=== PATIENT | female | born 1965 | race Caucasian/White ===

== ENCOUNTER → 2023-01-01 11:10 | Outpatient (CLI) | payer MEDICAID, SELFPAY ==
[2023-01-01 14:12] LABS: Basophils # 0.1 K/mm3 (0-0.2); Basophils % 0.6 % (0.1-2.0); Eosinophils # 0.1 K/mm3 (0.0-0.4); Eosinophils % 1.7 % (0.1-12.0); Hematocrit 41.5 % (37.0-47.0); Hemoglobin 13.6 g/dL (12.2-16.2); Lymphocytes # 2.1 K/mm3 (0.7-4.5); Lymphocytes % 27.8 % (10-50); Mean Corpuscular HGB Conc 32.7 g/dL (31.8-35.4); Mean Corpuscular Hemoglobin 29.3 pg (27.0-31.2); Mean Corpuscular Volume 89.6 fl (81-99); Mean Platelet Volume 7.8 fl (7.4-10.4); Monocytes # 0.4 K/mm3 (0.1-1.0); Neutrophils # 4.7 K/mm3 (1.8-7.8); Neutrophils % 63.9 % (37.0-80.0); Platelet Count 297 K/mm3 (142-424); Red Blood Count 4.63 M/mm3 (4.20-5.40); Red Cell Distribution Width 12.8 % (11.5-17.5); White Blood Count 7.4 K/mm3 (4.8-10.8)
[2023-01-01 15:23] LABS: Alanine Aminotransferase 25 U/L (12-78); Albumin Level 4.1 g/dl (3.5-5.0); Albumin/Globulin Ratio 1.7 (1.1-1.8); Alkaline Phosphatase 89 U/L (38-126); Anion Gap 10.9 mEq/L (5-15); Aspartate Amino Transferase 24 U/L (14-36); Bilirubin,Total 0.3 mg/dl (0.2-1.3); Blood Urea Nitrogen 10 mg/dl (7-17); Calcium 8.3 mg/dl (8.4-10.2); Carbon Dioxide 24 mmol/L (22.0-30.0); Chloride 104 mmol/L (98-107); Chol/HDL Ratio 3.7 (1-3.5); Cholesterol 194 mg/dl (140-200); Estimated Glomerular Filt Rate 128 ml/min (>60); GFR (African American) 155 ML/MIN (>60); Globulin 2.4 g/dL (1.3-3.2); Glucose 179 mg/dl (74-100); HDL Cholesterol 53 mg/dl (40-60); Potassium 3.9 mmoL/L (3.5-5.1); Sodium 135 mmol/L (136-145); Total Protein,Serum 6.5 g/dl (6.3-8.2); Triglycerides 256 mg/dl (30-150); VLDL Cholesterol 51 mg/dL (0-40)
[2023-01-01 15:34] LABS: Direct LDL Cholesterol 116.02 mg/dL (100-129)
[2023-01-01 15:40] LABS: Free T4 (Free Thyroxine) 0.98 ng/dl (0.78-2.19)
[2023-01-01 15:41] LABS: Triiodothryronine (T3) Uptake 32 % (23.5-40.5)
[2023-01-01 15:44] LABS: Hemoglobin A1C 5.9 % (4.0-6.0)
[2023-01-01 15:55] LABS: Thyroid Stimulating Hormone < 0.02 uIU/mL (0.465-4.68)
[2023-01-03 08:52] LABS: Triiodothyronine (T3) Free 10.3 pg/mL (2.0-4.4)
== END ==
PROVIDERS: PCP Nurse Practitioner Family; Visit Provider Nurse Practitioner Family
DX: R53.83 Other fatigue (principal); E03.9 Hypothyroidism, unspecified; E55.9 Vitamin D deficiency, unspecified
CPT/HCPCS: 80053; 80061; 82306; 83036; 84439; 84443; 84479; 84481; 85025

== ENCOUNTER → 2023-03-13 23:45 | Outpatient (CLI) | payer MEDICAID, SELFPAY | PROVIDERS: PCP Nurse Practitioner Family; Visit Provider Nurse Practitioner Family | DX: M54.50 Low back pain, unspecified (principal); B96.1 Klebsiella pneumoniae [K. pneumoniae] as the cause of diseases classified elsewhere | CPT/HCPCS: 87086; 87088; 87186 ==

== ENCOUNTER → 2023-03-14 17:40 | Outpatient (CLI) | payer MEDICAID, SELFPAY ==
[2023-03-14 18:51] LABS: Adenovirus F 40/41, stool Not Detected (NotDetected); Astrovirus Not Detected (NotDetected); Campylobacter Not Detected (NotDetected); Cryptosporidium Not Detected (NotDetected); Cyclospora Cayetanesis Not Detected (NotDetected); Entamoeba histolytica Not Detected (NotDetected); Enteroaggregative E coli Not Detected (NotDetected); Enteropathogenic E coli Not Detected (NotDetected); Enterotoxigenic E coli Not Detected (NotDetected); Giardia lamblia Not Detected (NotDetected); Norovirus Not Detected (NotDetected); Plesimonas Shigalloides, PCR Not Detected (NotDetected); Rotavirus A Not Detected (NotDetected); Salmonella, PCR Not Detected (NotDetected); Sapovirus Not Detected (NotDetected); Shiga-like toxin E coli Not Detected (NotDetected); Shigella Enterovasive E coli Not Detected (NotDetected); Vibrio Cholerae Not Detected (NotDetected); Vibrio, PCR Not Detected (NotDetected); Yersinia Entercolitica, PCR Not Detected (NotDetected)
[2023-03-15 01:57] LABS: Clostridium Difficile A/B, PCR Detected (NotDetected)
== END ==
PROVIDERS: PCP Nurse Practitioner Family; Visit Provider Nurse Practitioner Family
DX: R19.7 Diarrhea, unspecified (principal); A04.72 Enterocolitis due to Clostridium difficile, not specified as recurrent
CPT/HCPCS: 87507

== ENCOUNTER 2023-03-20 21:55 | Emergency (ER) | payer MEDICARE, SELFPAY ==
[2023-03-20 21:57] VITALS: BP 110/73; PULSE 94; RESP 20; TEMP 36.7; O2SAT 98; BMI 27.3
[2023-03-20 22:18] VITALS: BP 110/73; PULSE 95; O2SAT 97
[2023-03-20 22:30] VITALS: BP 116/71; PULSE 91; O2SAT 96
[2023-03-20 22:36] LABS: Microscopic, Urine URINE MICROSCOPIC (MICROSCOPIC)
[2023-03-20 22:40] LABS: Basophils % 0.6 % (0.1-2.0); Eosinophils # 0.2 K/mm3 (0.0-0.4); Eosinophils % 2.9 % (0.1-12.0); Hematocrit 40.5 % (37.0-47.0); Hemoglobin 13.7 g/dL (12.2-16.2); Lymphocytes # 2.5 K/mm3 (0.7-4.5); Lymphocytes % 35.7 % (10-50); Mean Corpuscular HGB Conc 33.9 g/dL (31.8-35.4); Mean Corpuscular Hemoglobin 30.1 pg (27.0-31.2); Mean Corpuscular Volume 88.6 fl (81-99); Mean Platelet Volume 7.6 fl (7.4-10.4); Monocytes # 0.4 K/mm3 (0.1-1.0); Neutrophils # 3.9 K/mm3 (1.8-7.8); Neutrophils % 54.8 % (37.0-80.0); Platelet Count 262 K/mm3 (142-424); Red Blood Count 4.57 M/mm3 (4.20-5.40)
[2023-03-20 22:46] LABS: Alanine Aminotransferase 36 U/L (12-78); Albumin Level 3.9 g/dl (3.5-5.0); Albumin/Globulin Ratio 1.5 (1.1-1.8); Alkaline Phosphatase 84 U/L (38-126); Anion Gap 17.7 mEq/L (5-15); Aspartate Amino Transferase 38 U/L (14-36); Bilirubin,Total 0.2 mg/dl (0.2-1.3); Blood Urea Nitrogen 11 mg/dl (7-17); Calcium 8.6 mg/dl (8.4-10.2); Carbon Dioxide 28 mmol/L (22.0-30.0); Chloride 94 mmol/L (98-107); Creatinine Clearance Estimated 135 mL/min (50-200); Estimated Glomerular Filt Rate 103 ml/min (>60); GFR (African American) 125 ML/MIN (>60); Globulin 2.6 g/dL (1.3-3.2); Glucose 169 mg/dl (74-100); Potassium 3.7 mmoL/L (3.5-5.1); Sodium 136 mmol/L (136-145); Total Protein,Serum 6.5 g/dl (6.3-8.2)
[2023-03-20 22:47] LABS: Appearance,Urine CLEAR (Clear); Bilirubin,Urine Negative (Negative); Blood, Urine Negative (Negative); Color,Urine YELLOW (Yellow); Glucose,Urine (UA) Negative (Negative); Ketones,Urine Negative (Negative); Leukocyte Esterase,Urine Negative (Negative); Nitrate,Urine Negative (Negative); PH,Urine 5.5 (5.0-8.5); Protein,Urine Negative (Negative); Specific Gravity, Urine 1.015 (1.005-1.030); Urobilinogen,Urine 0.2 EU/dl (0.2)
[2023-03-20 22:51] LABS: C-Reactive Protein 1.1 mg/L (0-4)
[2023-03-20 23:05] LABS: Procalcitonin 0.045 ng/mL (0.0-2.0)
[2023-03-20 23:06] LABS: Squamous Epithelial Cell,Urine Occasional #/hpf (0-5)
--- NOTE | 2023-03-20 23:48 | HMH.EDGENADL ---
Discharge Plan Disposition Patient Disposition: Home, Self-Care Chief Complaint: PAIN Prescriptions Prescriptions: No Action vancomycin 125 mg capsule 125 mg PO QID 10 Days Qty: 40 0RF Rx Instructions: C-Diff venlafaxine [Effexor XR] 150 mg capsule,extended release 24hr 150 mg PO DAILY venlafaxine [Effexor XR] 37.5 mg capsule,extended release 24hr 37.5 mg PO DAILY lisinopril 20 mg tablet 20 mg PO DAILY Qty: 90 1RF levothyroxine 150 mcg capsule 150 mcg PO DAILY Qty: 90 1RF terbinafine HCl [Antifungal (terbinafine)] 1 % cream 1 applic topical BID Qty: 30 0RF nitrofurantoin monohyd/m-cryst [Macrobid] 100 mg capsule 100 mg PO Q12H 10 Days Qty: 20 0RF Rx Instructions: must administer with a meal/food dextroamphetamine-amphetamine [Adderall] 10 mg tablet 10 mg PO TID Qty: 42 0RF Rx Instructions: administer doses at least 4-6 hours apart Referrals Follow up/Referrals: Mark Trevizo APRN [Primary Care Provider] - See instructions Clinical Impressions Clinical Impression: C. difficile colitis Instructions Patient Instructions: DI for Clostridioides difficile Infection Discharge ED Provider: Maribel (ED)Flavio General Adult HPI General Chief complaint: PAIN Stated complaint: UTI Time Seen by Provider: 03/20/23 23:30 Mode of Arrival: Ambulatory Source of Information: Patient and Medical Record Limitations: No Limitations Description of Symptoms (Recalled from ER Triage Doc. by RN): Pt arrives with variety of complaints. States she was recently dx with CDiff, experiencing diarrhea, with lower back pain, denies any N/V or fever. States she has been on Augmentin for 2 days for her left bottom tooth infection. Also complains of swollen lymph nodes and overall body pain. History of Present Illness HPI narrative: treated for c diff and slowly improving and not feeling well Onset (ago): hour(s) Location: face Severity: moderate Associated symptoms: denies other symptoms Related Data Home Medications Medication Instructions Recorded Confirmed venlafaxine 150 mg 150 mg PO DAILY 01/01/23 03/13/23 capsule,extended release 24 hr (Effexor XR) venlafaxine 37.5 mg 37.5 mg PO DAILY 01/01/23 03/13/23 capsule,extended release 24 hr (Effexor XR) Previous Rx's Medication Instructions Recorded levothyroxine 150 mcg capsule 150 mcg PO DAILY #90 caps 01/03/23 lisinopril 20 mg tablet 20 mg PO DAILY #90 tabs 01/03/23 terbinafine HCl 1 % topical cream 1 applic topical BID #30 grams 01/03/23 (Antifungal (terbinafine)) vancomycin 125 mg capsule 125 mg PO QID 10 days #40 caps 03/15/23 dextroamphetamine-amphetamine 10 10 mg PO TID #42 tabs 03/19/23 mg tablet (Adderall) nitrofurantoin 100 mg PO Q12H 10 days #20 caps 03/19/23 monohydrate/macrocrystals 100 mg capsule (Macrobid) Allergies Allergy/AdvReac Type Severity Reaction Status Date / Time No Known Allergies Allergy Verified 03/13/23 16:05 [facility] Disclaimer: The information contained in this section may have been updated after the patient was seen, as this information can be updated by other users. Social History Smoking Status: Current every day smoker smoking status start date: 1/2 pack day years smoked: 30 quit status: considering quitting alcohol intake: never substance use type: denies use current occupational status: disabled Travel in the last 8 weeks: None household members: family housing: house marital status: single education level: college ROS Obtained: Yes All systems reviewed & no additional complaints except as documented Physical Exam General General appearance: alert Head Head exam: normocephalic Eye Eye exam: Present PERRL and EOMI; Absent scleral icterus ENT ENT exam: Present mucous membranes moist Neck Neck exam: Present trachea midline Respiratory Respirat
[2023-03-21] VITALS: BP 110/65; PULSE 86; O2SAT 93
[2023-03-21 00:23] LABS: Erythrocyte Sedimentation Rate 18 mm/hr (0-30)
[2023-03-21 01:10] VITALS: BP 113/64; PULSE 84; RESP 20; TEMP 36.6
== END 2023-03-21 01:17 | disposition home or self-care (01) ==
PROVIDERS: Emergency Provider Emergency Medicine; PCP Nurse Practitioner Family
DX: A04.72 Enterocolitis due to Clostridium difficile, not specified as recurrent (principal); F17.210 Nicotine dependence, cigarettes, uncomplicated
CPT/HCPCS: 80053; 81001; 84145; 85025; 85651; 86140; 87086; 96361; 96374; 96375; 99284; 99285; J0131; J2405

== ENCOUNTER 2023-05-15 11:40 | Day surgery (SDC) | payer MEDICARE, SELFPAY ==
[2023-05-15 11:24] VITALS: O2SAT 97
[2023-05-15 12:04] VITALS: BP 139/92; PULSE 95; RESP 18; TEMP 36.1; O2SAT 95; BMI 26.6
--- NOTE | 2023-05-15 12:04 | EXP.ANES.CKL ---
[facility] Disclaimer: The information contained in this section may have been updated after the patient was seen, as this information can be updated by other users. Medical History Depression Endometriosis Hypertension Hypothyroid Inguinal hernia Surgical History H/O inguinal hernia repair H/O laparoscopy History of section Family History Other Colon cancer Family history of cancer Family history of myocardial infarction Social History Smoking Status: Current every day smoker smoking status start date: 1 pack day years smoked: 30 quit status: considering quitting alcohol intake: never substance use type: denies use current occupational status: employed Travel in the last 8 weeks: None household members: family housing: house marital status: single education level: college [facility] Anesthesia Checklist Patient Identification Patient Identification: Arm Band and Verbal (Name & ) Structural Data Admitted From: Home Planned Operative Procedure/s: Colonoscopy Consent for Planned Operative Procedure(s) Verified: Yes NPO Status Verified Time NPO: 00:00 Airway Assessment C-Spine Mobility Assessed: Yes TMJ Mobility Assessed: Yes Dentition: Good Dentition Neurological Assessment Level of Consciousness: Awake Hx Seizures: No Numbness or tingling in extremities: No Anesthesia Plan Anesthesia Risk discussed: Yes Anesthesia Plan: Verified ASA Class: II Anesthesia Type: MAC
--- NOTE | 2023-05-15 12:40 | HMH.SCOPE ---
Procedure: Date: 05/15/23 Patient Date of :: 1965 Procedure Performed:: Colonoscopy & biopsies Indications:: Chronic diarrhea, screening exam Performing Provider:: Maycol Boggs MD Referring Provider:: Mark Trevizo APRN Sedation:: Propofol Procedure:: After placing the patient in the left lateral decubitus position, the colonoscopy was gently inserted into the rectum and under direct visualization advanced to the cecum which was identified by transillumination in the right lower quadrant, identification of the ileocecal valve, appendiceal orifice, and cecal strap. Color, texture, mucosa, and anatomy of the colon were carefully examined with the scope. Findings:: Anal canal: normal Rectum: normal Sigmoid colon: normal without polyps or inflammatory changes, biopsied Descending colon: normal without polyps or inflammatory changes, biopsied Splenic flexure: normal Transverse colon: normal without polyps or inflammatory changes, biopsied Hepatic flexure: normal Ascending colon: normal without polyps or inflammatory changes, biopsied Cecum: normal Terminal ileum: not visualized Impression: Overall normal colonoscopy exam. Random biopsies obtained Specimens:: Random colon Recommendations:: Follow up examination in about TEN years or so, sooner if clinically indicated. Complications:: None Estimated blood obtained (mL): 0 Colonoscopy Component Colonoscopy Component Was a colonoscopy performed during today's procedure?: Yes Recommended follow up colonoscopy of at least 10 years?: Yes
[2023-05-15 12:45] VITALS: BP 120/76; PULSE 97; RESP 18; TEMP 36.4; O2SAT 92
[2023-05-15 12:55] VITALS: BP 108/60; PULSE 94; RESP 18; O2SAT 93
[2023-05-15 13:05] VITALS: BP 118/85; PULSE 95; RESP 18; O2SAT 96
[2023-05-15 13:15] VITALS: BP 123/83; PULSE 91; RESP 18; O2SAT 95
== END 2023-05-15 13:25 | disposition home or self-care (01) ==
PROVIDERS: PCP Nurse Practitioner Family; Visit Provider Internal Medicine Gastroenterology
PROC: 0DJD8ZZ Inspection of Lower Intestinal Tract, Via Natural or Artificial Opening Endoscopic (ICD-10-PCS; CPT 45378; principal; 2023-05-15 12:30)
DX: K52.9 Noninfective gastroenteritis and colitis, unspecified (principal)
CPT/HCPCS: 45378; 88305; J2704

== ENCOUNTER 2023-06-29 13:37 | Emergency (ER) | payer MEDICARE, SELFPAY ==
[2023-06-29 14:07] VITALS: BP 133/74; PULSE 84; RESP 20; TEMP 36.8; O2SAT 97; BMI 26.3
[2023-06-29 14:31] VITALS: BP 129/83; PULSE 69; O2SAT 100
[2023-06-29 15:01] VITALS: BP 115/74; PULSE 70; O2SAT 98
[2023-06-29 15:35] VITALS: BP 115/74; PULSE 70; RESP 17; TEMP 36.6
--- NOTE | 2023-06-29 17:07 | HMH.EDGENADL ---
Discharge Plan Disposition Patient Disposition: Home, Self-Care Condition: Good Prescriptions Prescriptions: No Action lisinopril 20 mg tablet 20 mg PO DAILY Qty: 90 0RF venlafaxine [Effexor XR] 37.5 mg capsule,extended release 24hr 37.5 mg PO DAILY Qty: 90 0RF venlafaxine [Effexor XR] 150 mg capsule,extended release 24hr 150 mg PO DAILY Qty: 90 0RF liothyronine 50 mcg tablet See Rx Instructions .ROUTE .COMPLEX Qty: 90 0RF Dose Instruction: TAKE 1 TABLET BY MOUTH ONCE DAILY Rx Instructions: TAKE 1 TABLET BY MOUTH ONCE DAILY dextroamphetamine-amphetamine [Adderall] 10 mg tablet 10 mg PO TID Qty: 90 0RF Rx Instructions: administer doses at least 4-6 hours apart spironolactone 25 mg tablet 25 mg PO DAILY levothyroxine 150 mcg capsule 150 mcg PO DAILY Referrals Follow up/Referrals: Flavio López MD [Primary Care Provider] - See instructions Activity Restrictions/Add. Instructions Additional Instructions/Restrictions: You were evaluated in the emergency department today for eye pain. You have abrasions of both corneas. These are extremely painful and require antibiotic eyedrops since you have been wearing contacts. You have been provided gentamicin eye drops. Put 2 drops in both eyes 6 times daily for the next 5 days. Make an appointment with your eye doctor for reevaluation in 2 days. Do not wear contacts until you have been cleared by your eye doctor. Take Tylenol and ibuprofen if needed for pain. Return to the emergency department with any new or worsening symptoms. Clinical Impressions Clinical Impression: Abrasion, corneal Qualifiers: Encounter type: initial encounter Laterality: unspecified laterality Qualified Code(s): S05.00XA - Injury of conjunctiva and corneal abrasion without foreign body, unspecified eye, initial encounter Stand Alone Forms Stand Alone Forms: Work/School Release Discharge ED Provider: Lyndsay Jurado Adult [facility] General Chief complaint: Eye Problems Stated complaint: unable to see, blurry vision and pain Time Seen by Provider: 06/29/23 14:05 Mode of Arrival: Ambulatory Source of Information: Patient Limitations: No Limitations Description of Symptoms (Recalled from ER Triage Doc. by RN): pt to ed c/o bilateral eye pain. pt states she had several contacts removed from her eyes this morning at [facility]. pt states her eyes are now burning and she is sensitive to light. pt denies headache. History of Present Illness HPI narrative: This 58-year-old female presents to the emergency department with concerns of bilateral eye pain. Patient has a history of hypertension and hypothyroid. She states that she was putting contacts in this morning and thought they kept falling out because her vision was not getting any better so she kept putting an additional pairs of contacts. She then developed significant eye pain. She presented to [facility] where she states they took 3 contacts out of her right eye. She says she knows that she placed 3 contacts in her eyes. She states they did not remove any contacts from the left eye and did not visualize any in there. Patient states she was on her way home when the pain medication they had dripped in her eyes wore off and her pain got significantly worse. She presents to this emergency department because of concerns of eye pain. She states the right is worse than the left. She states her eyes hurt but vision is at baseline. Related Data Home Medications Medication Instructions Recorded Confirmed levothyroxine 150 mcg capsule 150 mcg PO DAILY Supplement 05/15/23 06/19/23 spironolactone 25 mg tablet 25 mg PO DAILY chf 05/15/23 06/19/23 Previous Rx's Medication Instructions Recorded lisinopril 20 mg tablet 20 mg PO DAILY High Blood Pressure 05/15/23 #90 tabs venlafaxine 37.5 mg 37.5 mg PO DAILY Depression #90 05/15/23 capsule,extended release 24 hr caps (Effexor XR)
== END 2023-06-29 15:36 | disposition home or self-care (01) ==
PROVIDERS: Emergency Provider Emergency Medicine; PCP Emergency Medicine
DX: S05.00XA Injury of conjunctiva and corneal abrasion without foreign body, unspecified eye, initial encounter (principal); H57.13 Ocular pain, bilateral; I10 Essential (primary) hypertension; E03.9 Hypothyroidism, unspecified; F32.A Depression, unspecified; N80.9 Endometriosis, unspecified
CPT/HCPCS: 99283

== ENCOUNTER → 2023-07-07 12:53 | Outpatient (CLI) | payer MEDICARE, SELFPAY | PROVIDERS: PCP Emergency Medicine; Visit Provider Emergency Medicine | DX: R69 Illness, unspecified (principal) | CPT/HCPCS: 87635 ==

== ENCOUNTER 2023-11-20 08:22 | Outpatient (CLI) | payer MEDICAID, SELFPAY ==
[2023-11-21 00:40] LABS: Benzodiazepines Screen,Urine Negative ng/ml (<200)
[2023-11-21 00:41] LABS: Amphetamine/Metha Screen,Urine Negative ng/ml (<1000); Barbiturates Screen,Urine Negative ng/ml (<200)
[2023-11-21 00:42] LABS: Cocaine Screen,Urine Negative ng/ml (<300); Methadone Screen,Urine Negative ng/ml (<300)
[2023-11-21 00:43] LABS: Cannabinoid Screen,Urine Positive ng/ml (<50)
[2023-11-21 00:44] LABS: Opiate Screen,Urine Negative ng/ml (<300)
[2023-11-21 00:45] LABS: Phencyclidine Screen,Urine Negative ng/ml (<25)
[2023-11-26 10:03] LABS: Amphetamines Negative (Cutoff=500)
== END 2023-11-20 23:59 ==
LOC: LAB.DROPOF 11-21 08:25
PROVIDERS: PCP Nurse Practitioner Family; Visit Provider Nurse Practitioner Family
DX: Z79.899 Other long term (current) drug therapy (principal); F90.9 Attention-deficit hyperactivity disorder, unspecified type
CPT/HCPCS: 80307; 80324

== ENCOUNTER 2024-03-04 15:37 | Outpatient (CLI) | payer MEDICAID, SELFPAY ==
[2024-03-04 19:13] LABS: Basophils % 0.4 % (0.1-2.0); Eosinophils # 0.2 K/mm3 (0.0-0.4); Eosinophils % 2.7 % (0.1-12.0); Hematocrit 42.5 % (37.0-47.0); Hemoglobin 14.2 g/dL (12.2-16.2); Lymphocytes # 1.8 K/mm3 (0.7-4.5); Lymphocytes % 30.5 % (10-50); Mean Corpuscular HGB Conc 33.5 g/dL (31.8-35.4); Mean Corpuscular Hemoglobin 30.1 pg (27.0-31.2); Mean Platelet Volume 8.3 fl (7.4-10.4); Monocytes # 0.3 K/mm3 (0.1-1.0); Neutrophils # 3.6 K/mm3 (1.8-7.8); Neutrophils % 61.4 % (37.0-80.0); Platelet Count 262 K/mm3 (142-424); Red Blood Count 4.73 M/mm3 (4.20-5.40); Red Cell Distribution Width 12.6 % (11.5-17.5); White Blood Count 5.9 K/mm3 (4.8-10.8)
[2024-03-04 19:38] LABS: Alanine Aminotransferase 23 U/L (12-78); Albumin Level 3.9 g/dl (3.5-5.0); Albumin/Globulin Ratio 1.5 (1.1-1.8); Alkaline Phosphatase 93 U/L (38-126); Anion Gap 12.2 mEq/L (5-15); Aspartate Amino Transferase 27 U/L (14-36); Bilirubin,Total 0.4 mg/dl (0.2-1.3); Blood Urea Nitrogen 12 mg/dl (7-17); Calcium 9.4 mg/dl (8.4-10.2); Carbon Dioxide 28 mmol/L (22.0-30.0); Chloride 102 mmol/L (98-107); Cholesterol 193 mg/dl (140-200); Estimated Glomerular Filt Rate 127 ml/min (>60); GFR (African American) 154 ML/MIN (>60); Globulin 2.6 g/dL (1.3-3.2); Glucose 76 mg/dl (74-100); HDL Cholesterol 48 mg/dl (40-60); Potassium 4.2 mmoL/L (3.5-5.1); Sodium 138 mmol/L (136-145); Total Protein,Serum 6.5 g/dl (6.3-8.2); Triglycerides 221 mg/dl (30-150); VLDL Cholesterol 44 mg/dL (0-40)
[2024-03-04 19:49] LABS: Direct LDL Cholesterol 120.81 mg/dL (100-129)
[2024-03-04 19:59] LABS: 25-OH Vitamin D, Total < 12.8 ng/mL (30-100)
[2024-03-04 20:11] LABS: Thyroid Stimulating Hormone < 0.02 uIU/mL (0.465-4.68)
[2024-03-04 20:31] LABS: Hemoglobin A1C 6.4 % (4.0-6.0)
== END 2024-03-04 23:59 | disposition home or self-care (01) ==
LOC: LAB.DROPOF 03-05 15:37
PROVIDERS: PCP Student in an Organized Health Care Education/Training Program; Visit Provider Student in an Organized Health Care Education/Training Program
DX: E03.9 Hypothyroidism, unspecified (principal); R10.9 Unspecified abdominal pain; Z13.220 Encounter for screening for lipoid disorders; Z13.21 Encounter for screening for nutritional disorder; Z13.1 Encounter for screening for diabetes mellitus; R73.09 Other abnormal glucose; E55.9 Vitamin D deficiency, unspecified; Z79.899 Other long term (current) drug therapy; B96.89 Other specified bacterial agents as the cause of diseases classified elsewhere
CPT/HCPCS: 80053; 80061; 82306; 83036; 84443; 85025; 87086; 87088; 87186

== ENCOUNTER 2024-07-12 19:52 | Outpatient (CLI) | payer MEDICAID, SELFPAY | END 2024-07-12 23:59 | disposition home or self-care (01) | LOC: LAB.DROPOF 19:54 | PROVIDERS: PCP Family Medicine; Visit Provider Family Medicine | DX: R35.0 Frequency of micturition (principal) | CPT/HCPCS: 87086 ==

== ENCOUNTER 2024-07-22 14:31 | Emergency (ER) | payer MEDICAID, SELFPAY ==
[2024-07-22 14:32] VITALS: BP 135/101; PULSE 90; RESP 18; TEMP 37.1; O2SAT 94; BMI 25.8
--- NOTE | 2024-07-22 14:50 | HMH.EDGENADL ---
Discharge Plan Disposition Patient Disposition: Home, Self-Care Condition: Good Prescriptions Prescriptions: No Action triamcinolone acetonide 0.5 % cream 1 applic topical BID Qty: 15 0RF spironolactone 25 mg tablet 25 mg PO DAILY Qty: 90 2RF nicotine [Nicoderm CQ] 21 mg/24 hr patch 24 hour 1 patch transdermal DAILY Qty: 28 0RF hydroxyzine pamoate 100 mg capsule 100 mg PO HS Qty: 30 0RF dextroamphetamine-amphetamine [Adderall] 10 mg tablet 10 mg PO BID Qty: 60 0RF Rx Instructions: administer doses at least 4-6 hours apart terbinafine HCl 1 % cream 1 applic topical BID Qty: 30 2RF cholecalciferol (vitamin D3) 1,250 mcg (50,000 unit) capsule 1,250 mcg PO WEEKLY Qty: 14 0RF fluticasone propionate [Flonase Allergy Relief] 50 mcg/actuation spray,suspension 1 spray intranasal DAILY Qty: 16 2RF Rx Instructions: administer into each nostril lisinopril 20 mg tablet 20 mg PO DAILY Qty: 90 0RF montelukast [Singulair] 10 mg tablet 10 mg PO DAILY Qty: 90 0RF venlafaxine [Effexor XR] 37.5 mg capsule,extended release 24hr 37.5 mg PO DAILY Qty: 90 0RF venlafaxine 150 mg capsule,extended release 24hr 150 mg PO DAILY Qty: 90 0RF levothyroxine 125 mcg tablet 125 mcg PO DAILY Qty: 90 0RF albuterol sulfate [Ventolin HFA] 90 mcg/actuation HFA aerosol inhaler 2 puff inhalation Q4-6H PRN (Reason: shortness of breath or wheezing) Qty: 8.5 2RF liothyronine 50 mcg tablet See Rx Instructions .ROUTE .COMPLEX Qty: 90 0RF Dose Instruction: TAKE 1 TABLET BY MOUTH ONCE DAILY Rx Instructions: TAKE 1 TABLET BY MOUTH ONCE DAILY Referrals Follow up/Referrals: Mark Trevizo APRN [Primary Care Provider] - See instructions Activity Restrictions/Add. Instructions Additional Instructions/Restrictions: Follow-up with primary care provider, recheck your laboratory studies, please have rheumatologic/autoimmune panels performed by your primary care provider, take your regular arthritis strength medication as prescribed. Return to the emergency department for any worsening new signs or symptoms. Clinical Impressions Clinical Impression: Foot pain, bilateral, Bilateral hand pain Instructions Patient Instructions: DI for Osteoarthritis Print Language Print Language: Haitian Discharge ED Provider: Chapo Braun General Adult HPI <AIDEE Maki - Last Filed: 07/22/24 15:13> General Chief complaint: PAIN Stated complaint: arthritis swollen hands Time Seen by Provider: 07/22/24 14:47 Mode of Arrival: Ambulatory Source of Information: Patient Limitations: No Limitations Description of Symptoms (Recalled from ER Triage Doc. by RN): arthritis pain x3 days History of Present Illness HPI narrative: 59-year-old female presents to the emergency department with bilateral hands and feet pain and swelling, patient states that she has osteoarthritis, usually takes ibuprofen and glucosamine/chondroitin but is out of this supplement. Patient states, I typically get a steroid shot and it helps . Patient states she has regular PCP follow-ups. Patient denies any other acute symptomatology such as recent illness fever chills chest pain shortness of breath, nausea, vomiting, Moreno pain, urinary type symptomatology, vaginal type symptomatology, denies any hematemesis, hematemesis, hematochezia or melena, mitts to occasional numbness and tingling of bilateral feet and hands, asked about history of diabetes, she denies, upon chart review last A1c was and March 2024, she denies any upper or lower extremity weakness denies urinary bladder or bowel dysfunction, denies any saddle anesthesia. Patient's past medical history consistent with hypertension, osteoarthritis, hypothyroidism, ADHD, triage vitals grossly unremarkable, she is a current everyday smoker, denies alcohol or drug use. Onset (ago): day(s) Related Data Previous Rx's ?Medication ?Instructions ?Recorded spironolactone 25 mg tablet 25 mg PO DAILY chf #90 tabs 08/20/23 triamcinolone acetonide 0.5 % 1 applic topical BID #15 grams 08/20/23 topical cream terbinafine HCl 1 % topical cream 1 applic topical BID fungus #30 01/02/24 grams cholecalciferol (vitamin D3) 1,250 1,250 mcg PO WEEKLY #14 caps 03/04/24 mcg (50,000 unit) capsule fluticasone propionate 50 1 spray intranasal DAILY #16 grams 04/01/24 mcg/actuation nasal spray,suspension (Flonase Allergy Relief) lisinopril 20 mg tablet 20 mg PO DAILY High Blood Pressure 05/12/24 #90 tabs montelukast 10 mg tablet 10 mg PO DAILY #90 tabs 05/12/24 (Singulair) nicotine 21 mg/24 hr daily 1 patch transdermal DAILY #28 ea 05/20/24 transdermal patch (Nicoderm CQ) dextroamphetamine-amphetamine 10 10 mg PO BID ADHD #60 tabs 07/12/24 mg tablet (Adderall) hydroxyzine pamoate 100 mg capsule 100 mg PO HS #30 caps 07/12/24 albuterol sulfate 90 mcg/actuation 2 puff inhalation Q4-6H PRN 07/13/24 aerosol inhaler (Ventolin HFA) shortness of breath or wheezing #8.5 grams levothyroxine 125 mcg tablet 125 mcg PO DAILY #90 tabs 07/13/24 venlafaxine 150 mg 150 mg PO DAILY Depression #90 caps 07/13/24 capsule,extended release 24 hr venlafaxine 37.5 mg 37.5 mg PO DAILY Depression #90 07/13/24 capsule,extended release 24 hr caps (Effexor XR) liothyronine 50 mcg tablet See Rx Instructions .Route 07/19/24 .COMPLEX #90 tabs Allergies Allergy/AdvReac Type Severity Reaction Status Date / Time No Known Allergies Allergy Verified 07/12/24 15:47 [facility] <AIDEE Maki - Last Filed: 07/22/24 15:13> [facility] Disclaimer: The information contained in this section may have been updated after the patient was seen, as this information can be updated by other users. Medical History Endometriosis Inguinal hernia Depression Hypertension Hypothyroid Surgical History H/O laparoscopy H/O inguinal hernia repair History of section Family History Other Colon cancer Family history of cancer Family history of myocardial infarction Social History Smoking Status: Current every day smoker smoking status start date: 1/2 pack day years smoked: 30 quit status: considering quitting alcohol intake: never substance use type: denies use current occupational status: employed Travel in the last 8 weeks: None household members: family housing: house marital status: single education level: college <AIDEE Maki - Last Filed: 07/22/24 15:13> ROS Obtained: Yes All systems reviewed & no additional complaints except as documented Physical Exam <AIDEE Maki - Last Filed: 07/22/24 15:13> General General appearance: alert and in no apparent distress Head Head exam: atraumatic and normocephalic Eye Eye exam: Present PERRL and EOMI ENT ENT exam: Present mucous membranes moist Neck Neck exam: Present normal inspection Chest Chest inspection: Present normal inspection and symmetric chest wall rise Respiratory Respiratory exam: Present normal lung sounds bilaterally; Absent respiratory distress Cardiovascular Cardiovascular exam: Present regular rate and normal rhythm Abdominal Exam Abdominal exam: Present soft; Absent tenderness Extremities Exam Extremities exam: Present normal inspection, full ROM, normal capillary refill, joint swelling and other (There is no swan-neck or boutonniere deformity, no tophi); Absent tenderness or edema Neurological Exam Neurological exam: Present alert and oriented X3 Psychiatric Psychiatric exam: Present normal affect Skin Skin exam: Present warm and dry Medical Decision Making <AIDEE Maki - Last Filed: 07/22/24 15:13> Medical Records Screening: Per USPSTF and CDC recommendations, given the prevalence of disease in our region, it is our hospital?s policy to screen for HIV and viral Hepatitis for all patients aged 18 and over and those with ongoing risk factors. Mauro Inquiry Pt receiving controlled substance: No Vital Signs: 07/22/24 14:32 07/22/24 15:20 Temperature 98.8 F 98.0 F Temperature Source Oral Oral Pulse Rate 79 Pulse Rate [Right] 90 Respiratory Rate 18 20 Blood Pressure 120/82 Blood Pressure [Right Arm] 135/101 H Blood Pressure Mean [Right Arm] 112 02 Sat by Pulse Oximetry 94 L Oxygen Delivery Method Room Air Orders (Tests/Meds): ED MEDICATIONS Discontinued Medications Generic Name Dose Route Start Last Admin Trade Name Freq PRN Reason Stop Dose Admin Dexamethasone Sodium Phosphate 10 mg 07/22/24 15:02 07/22/24 15:11 Dexamethasone 4mg/Ml 1ml Vial IM 07/22/24 15:03 10 mg ONCE ONE Administration Ketorolac Tromethamine 15 mg 07/22/24 14:59 07/22/24 15:11 Ketorolac 30mg/Ml Vial IM 07/22/24 15:00 15 mg ONCE ONE Administration Medical Decision Narrative: 59-year-old female presents to the emergency department with bilateral hands and feet pain differential diagnose include but not limited to diabetic polyneuropathy, osteoarthritis, rheumatoid arthritis, gout. I discussed patient case with the attending physician Dr. Braun Will give patient 15 mg IM Toradol and 10 mg IM dexamethasone for pain. Had a long discussion with the patient at the bedside, recommend follow-up with primary care provider for rheumatologic studies, to rule out rheumatoid arthritis any other rheumatological/autoimmune disease, patient has no acute findings on physical exam, neurovascular intact, range of motion intact, moves extremity to command, no numbness or tingling currently, no erythema, no evidence of any cellulitis, tophi or gout. Most likely in line with her current osteoarthritis. I reviewed via chart review, patient last A1c was 6, other laboratory studies unremarkable last reviewed in March 2024, recommend follow-up PCP as directed, strict ED return precaution given to the patient at bedside, patient agreement with current treatment plan/discharge plan. <Chapo Braun MD - Last Filed: 07/22/24 16:12> Vital Signs: 07/22/24 14:32 07/22/24 15:20 Temperature 98.8 F 98.0 F Temperature Source Oral Oral Pulse Rate 79 Pulse Rate [Right] 90 Respiratory Rate 18 20 Blood Pressure 120/82 Blood Pressure [Right Arm] 135/101 H Blood Pressure Mean [Right Arm] 112 02 Sat by Pulse Oximetry 94 L Oxygen Delivery Method Room Air Orders (Tests/Meds): ED MEDICATIONS Discontinued Medications Generic Name Dose Route Start Last Admin Trade Name Freq PRN Reason Stop Dose Admin Dexamethasone Sodium Phosphate 10 mg 07/22/24 15:02 07/22/24 15:11 Dexamethasone 4mg/Ml 1ml Vial IM 07/22/24 15:03 10 mg ONCE ONE Administration Ketorolac Tromethamine 15 mg 07/22/24 14:59 07/22/24 15:11 Ketorolac 30mg/Ml Vial IM 07/22/24 15:00 15 mg ONCE ONE Administration Medical Decision Narrative: 59-year-old female presents to the emergency department with bilateral hands and feet pain differential diagnose include but not limited to diabetic polyneuropathy, osteoarthritis, rheumatoid arthritis, gout. I discussed patient case with the attending physician Dr. Braun Will give patient 15 mg IM Toradol and 10 mg IM dexamethasone for pain. Had a long discussion with the patient at the bedside, recommend follow-up with primary care provider for rheumatologic studies, to rule out rheumatoid arthritis any other rheumatological/autoimmune disease, patient has no acute findings on physical exam, neurovascular intact, range of motion intact, moves extremity to command, no numbness or tingling currently, no erythema, no evidence of any cellulitis, tophi or gout. Most likely in line with her current osteoarthritis. I reviewed via chart review, patient last A1c was 6, other laboratory studies unremarkable last reviewed in March 2024, recommend follow-up PCP as directed, strict ED return precaution given to the patient at bedside, patient agreement with current treatment plan/discharge plan. I was consulted by the KATIE, and we discussed the complexity of the problems being addressed. I approved the treatment and management plan for this patient's care in the Emergency Department, thus performing a substantive portion of the medical decision making. Chapo Braun MD Critical Care <AIDEE Maki - Last Filed: 07/22/24 15:13> Critical Care Time Critical Care Time: No
[2024-07-22] MEDS: KETOROLAC 30MG/ML VIAL 15 MG IM (15:11)
[2024-07-22] MEDS: DEXAMETHASONE 4MG/ML 1ML VIAL 10 MG IM (15:11)
[2024-07-22 15:20] VITALS: BP 120/82; PULSE 79; RESP 20; TEMP 36.7; O2SAT 94
== END 2024-07-22 15:22 | disposition home or self-care (01) ==
PROVIDERS: Emergency Provider Emergency Medicine; PCP Nurse Practitioner Family
DX: M79.642 Pain in left hand (principal); M79.641 Pain in right hand; M79.672 Pain in left foot; M79.671 Pain in right foot; M19.042 Primary osteoarthritis, left hand; M19.041 Primary osteoarthritis, right hand; M19.072 Primary osteoarthritis, left ankle and foot; M19.071 Primary osteoarthritis, right ankle and foot
CPT/HCPCS: 96372; 99283; J1100; J1885

== ENCOUNTER 2024-07-26 15:41 | Outpatient (CLI) | payer MEDICAID, SELFPAY ==
[2024-07-26 15:28] LABS: Microscopic, Urine URINE MICROSCOPIC (MICROSCOPIC)
[2024-07-26 17:03] LABS: Appearance,Urine CLEAR (Clear); Bilirubin,Urine Negative (Negative); Blood, Urine Negative (Negative); Color,Urine YELLOW (Yellow); Glucose,Urine (UA) Negative (Negative); Ketones,Urine Negative (Negative); Leukocyte Esterase,Urine TRACE (Negative); Nitrate,Urine Negative (Negative); Protein,Urine Negative (Negative); Urobilinogen,Urine 0.2 EU/dl (0.2)
== END 2024-07-26 23:59 | disposition home or self-care (01) ==
LOC: LAB.DROPOF 15:41
PROVIDERS: PCP Urology; Visit Provider Urology
DX: N39.3 Stress incontinence (female) (male) (principal)
CPT/HCPCS: 81001

== ENCOUNTER 2024-07-29 14:27 | Outpatient (CLI) | payer MEDICAID, SELFPAY ==
[2024-07-29 15:29] LABS: Blood Urea Nitrogen 15 mg/dl (7-17); Estimated Glomerular Filt Rate 86 ml/min (>60); GFR (African American) 104 ML/MIN (>60)
== END 2024-07-29 23:59 | disposition home or self-care (01) ==
LOC: RAD 14:28
PROVIDERS: PCP Nurse Practitioner Family; Visit Provider Family Medicine
DX: Z01.812 Encounter for preprocedural laboratory examination (principal)
CPT/HCPCS: 36415; 82565; 84520

== ENCOUNTER 2024-08-15 20:09 | Emergency (ER) | payer MEDICAID, SELFPAY ==
[2024-08-15 20:45] VITALS: BP 116/81; PULSE 92; RESP 20; TEMP 36.7; O2SAT 97; BMI 26.6
[2024-08-15 21:03] LABS: Microscopic, Urine URINE MICROSCOPIC (MICROSCOPIC)
--- NOTE | 2024-08-15 21:19 | ED_ITS ---
Discharge Plan Disposition Patient Disposition: Home, Self-Care Prescriptions Prescriptions: New cefdinir 300 mg capsule 300 mg PO BID 7 Days Qty: 14 0RF phenazopyridine 100 mg tablet 100 mg PO Q8H Qty: 14 0RF No Action triamcinolone acetonide 0.5 % cream 1 applic topical BID Qty: 15 0RF spironolactone 25 mg tablet 25 mg PO DAILY Qty: 90 2RF nicotine [Nicoderm CQ] 21 mg/24 hr patch 24 hour 1 patch transdermal DAILY Qty: 28 0RF ammonium lactate 12 % cream 1 applic topical BID Qty: 385 1RF hydroxyzine pamoate 100 mg capsule 100 mg PO HS Qty: 30 0RF oxybutynin chloride 10 mg tablet extended release 24hr 10 mg PO DAILY Qty: 90 3RF estradiol 0.01 % (0.1 mg/gram) cream See Rx Instructions vaginal .COMPLEX Qty: 42.5 2RF Rx Instructions: Using finger technique daily for two weeks and then twice weekly vaginally; terbinafine HCl 1 % cream 1 applic topical BID Qty: 30 2RF cholecalciferol (vitamin D3) 1,250 mcg (50,000 unit) capsule 1,250 mcg PO WEEKLY Qty: 14 0RF fluticasone propionate [Flonase Allergy Relief] 50 mcg/actuation spray,suspension 1 spray intranasal DAILY Qty: 16 2RF Rx Instructions: administer into each nostril montelukast [Singulair] 10 mg tablet 10 mg PO DAILY Qty: 90 0RF venlafaxine [Effexor XR] 37.5 mg capsule,extended release 24hr 37.5 mg PO DAILY Qty: 90 0RF venlafaxine 150 mg capsule,extended release 24hr 150 mg PO DAILY Qty: 90 0RF levothyroxine 125 mcg tablet 125 mcg PO DAILY Qty: 90 0RF albuterol sulfate [Ventolin HFA] 90 mcg/actuation HFA aerosol inhaler 2 puff inhalation Q4-6H PRN (Reason: shortness of breath or wheezing) Qty: 8.5 2RF liothyronine 50 mcg tablet See Rx Instructions .ROUTE .COMPLEX Qty: 90 0RF Dose Instruction: TAKE 1 TABLET BY MOUTH ONCE DAILY Rx Instructions: TAKE 1 TABLET BY MOUTH ONCE DAILY triazolam [Halcion] 0.25 mg tablet 0.25 mg PO ONCE Qty: 1 0RF lisinopril 20 mg tablet 20 mg PO DAILY Qty: 90 0RF dextroamphetamine-amphetamine [Adderall] 10 mg tablet 10 mg PO BID Qty: 60 0RF Rx Instructions: administer doses at least 4-6 hours apart Referrals Follow up/Referrals: Mark Trevizo APRN [Primary Care Provider] - See instructions Activity Restrictions/Add. Instructions Additional Instructions/Restrictions: Call your family doctor to establish care for this visit to the emergency department and schedule follow-up within 48 hours to ensure improvement. If you have any worsening of your condition or any other concerning signs or symptoms, return to the emergency department or your primary care doctor for further evaluation. Clinical Impressions Clinical Impression: Pyelonephritis Print Language Print Language: Moroccan Discharge ED Provider: Chapo Braun General Adult HPI General Chief complaint: PAIN Stated complaint: possible bladder infection,pain,burning Time Seen by Provider: 08/15/24 20:44 Mode of Arrival: Ambulatory Source of Information: Patient Limitations: No Limitations Description of Symptoms (Recalled from ER Triage Doc. by RN): Pt ambulatory to ED with cc of left groin pain. Pt states she had burning when she urinates. Pt states she took Azo today and the burning has since resolved. Pt states her left groin pain is a throbbing pain that started today. History of Present Illness HPI narrative: Please note that above description of symptoms, in this electronic medical record under categorization of recalled from ER triage doctor by RN are reflective of an initial nursing assessment, however, is not reflective of my full history and physical exam that was personally taken and clarified. Consequentially, this preceding description of symptoms, which may include the patient's categorized chief complaint in the EMR, do not reflect my personal clinical impression, and the ultimate description of history of present illness and patient stated complaints should be deferred to this section of the note. Unless stated otherwise or congruent with this section of the note, additional signs, symptoms, or incongruence should be interpreted as inaccurate with my clinical impression. Related Data Previous Rx's ?Medication ?Instructions ?Recorded spironolactone 25 mg tablet 25 mg PO DAILY chf #90 tabs 08/20/23 triamcinolone acetonide 0.5 % 1 applic topical BID #15 grams 08/20/23 topical cream terbinafine HCl 1 % topical cream 1 applic topical BID fungus #30 01/02/24 grams cholecalciferol (vitamin D3) 1,250 1,250 mcg PO WEEKLY #14 caps 03/04/24 mcg (50,000 unit) capsule fluticasone propionate 50 1 spray intranasal DAILY #16 grams 04/01/24 mcg/actuation nasal spray,suspension (Flonase Allergy Relief) montelukast 10 mg tablet 10 mg PO DAILY #90 tabs 05/12/24 (Singulair) nicotine 21 mg/24 hr daily 1 patch transdermal DAILY #28 ea 05/20/24 transdermal patch (Nicoderm CQ) hydroxyzine pamoate 100 mg capsule 100 mg PO HS #30 caps 07/12/24 albuterol sulfate 90 mcg/actuation 2 puff inhalation Q4-6H PRN 07/13/24 aerosol inhaler (Ventolin HFA) shortness of breath or wheezing #8.5 grams levothyroxine 125 mcg tablet 125 mcg PO DAILY #90 tabs 07/13/24 venlafaxine 150 mg 150 mg PO DAILY Depression #90 caps 07/13/24 capsule,extended release 24 hr venlafaxine 37.5 mg 37.5 mg PO DAILY Depression #90 07/13/24 capsule,extended release 24 hr caps (Effexor XR) liothyronine 50 mcg tablet See Rx Instructions .Route 07/19/24 .COMPLEX #90 tabs ammonium lactate 12 % topical cream 1 applic topical BID dry skin, 07/26/24 callus care #385 grams estradiol 0.01% (0.1 mg/gram) See Rx Instructions vaginal 07/26/24 vaginal cream .COMPLEX #42.5 grams oxybutynin chloride 10 mg 10 mg PO DAILY #90 tabs 07/26/24 tablet,extended release 24 hr triazolam 0.25 mg tablet (Halcion) 0.25 mg PO ONCE anxiety #1 tab 08/05/24 lisinopril 20 mg tablet 20 mg PO DAILY High Blood Pressure 08/06/24 #90 tabs dextroamphetamine-amphetamine 10 10 mg PO BID ADHD #60 tabs 08/11/24 mg tablet (Adderall) cefdinir 300 mg capsule 300 mg PO BID 7 days #14 caps 08/15/24 phenazopyridine 100 mg tablet 100 mg PO Q8H 6 doses #14 tabs 08/15/24 Allergies Allergy/AdvReac Type Severity Reaction Status Date / Time No Known Allergies Allergy Verified 07/26/24 16:30 [facility] Disclaimer: The information contained in this section may have been updated after the patient was seen, as this information can be updated by other users. Medical History Endometriosis Inguinal hernia Depression Hypertension Hypothyroid Surgical History H/O laparoscopy H/O inguinal hernia repair History of section Family History Other Colon cancer Family history of cancer Family history of myocardial infarction Social History Smoking Status: Current every day smoker smoking status start date: 12 pack day years smoked: 30 quit status: considering quitting alcohol intake: never substance use type: denies use current occupational status: employed Travel in the last 8 weeks: None household members: family housing: house marital status: single education level: college Other Medical History Have you received the Pneumonia Vaccine: No ROS Obtained: Yes All systems reviewed & no additional complaints except as documented Physical Exam General General appearance: alert Head Head exam: atraumatic and normocephalic Eye Eye exam: Present normal appearance, PERRL and EOMI Neck Neck exam: Present normal inspection, full ROM and trachea midline Respiratory Respiratory exam: Absent respiratory distress, wheezes, stridor, accessory muscle use or prolonged expiratory phase Cardiovascular Cardiovascular exam: Present other (Pulses equal symmetric in upper and lower extremities) Abdominal Exam Abdominal exam: Present soft; Absent distention, tenderness or pulsatile mass Extremities Exam Extremities exam: Absent edema Neurological Exam Neurological exam: Present alert, oriented X3 and CN II-XII intact; Absent motor sensory deficit Skin Skin exam: Present warm and dry; Absent diaphoresis or erythema Medical Decision Making Medical Records Medical records reviewed: Yes I reviewed the patient's medical records. Screening: Per USPSTF and CDC recommendations, given the prevalence of disease in our region, it is our hospital?s policy to screen for HIV and viral Hepatitis for all patients aged 18 and over and those with ongoing risk factors. Mauro Inquiry Pt receiving controlled substance: No Mauro was queried for this patient: No Vital Signs: 08/15/24 20:45 Temperature 98.1 F Temperature Source Oral Pulse Rate [Left Radial] 92 H Respiratory Rate 20 Blood Pressure [Right Arm] 116/81 Blood Pressure Mean [Right Arm] 92 Blood Pressure Source [Right Arm] Automatic Cuff Blood Pressure Position [Right Arm] Sitting 02 Sat by Pulse Oximetry 97 Oxygen Delivery Method Room Air Lab Data Lab Results 08/15/24 20:59: Urine Color Red, Urine Appearance Cloudy, Urine pH 5.0, Ur Specific [place] >= 1.030, Urine Protein 2+ A, Urine Glucose (UA) Trace, Urine Ketones Trace, Urine Blood Negative, Urine Nitrate Positive, Urine Bilirubin 2+ A, Urine Urobilinogen 4.0, Ur Leukocyte Esterase 1+ A, Urine RBC None, Urine WBC 50-100, Ur Squamous Epith Cells 3-5, Urine Bacteria 3+ Orders (Tests/Meds): ED MEDICATIONS Discontinued Medications Generic Name Dose Route Start Last Admin Trade Name Freq PRN Reason Stop Dose Admin Cefdinir 300 mg 08/15/24 21:20 08/15/24 21:26 Cefdinir 300mg Capsule PO 08/15/24 21:21 300 mg ONCE ONE Administration Phenazopyridine HCl 100 mg 08/15/24 21:20 08/15/24 21:26 Phenazopyridine 200mg Tablet PO 08/15/24 21:21 100 mg ONCE ONE Administration ORDERS Category Date Time Status Trichomonas Vaginalis, ANNE Stat Lab 08/15/24 20:59 Received UA [Urinalysis and Microscopic] Stat Lab 08/15/24 20:59 Completed Urine Culture Stat Micro 08/15/24 20:59 Received Medical Decision Narrative: This is a 59-year-old female with history of atrophic vaginitis, numerous UTIs, currently on vaginal estrogen cream presenting with urinary burning. Patient states that since yesterday, 08/14, she has had burning when she urinates. She also has frequency, urgency of urine. No hematuria reported. States that today, pain started going up into her bilateral flanks. No vomiting, fevers, chills, etc. Took an Azo, this seemed to help significantly. History obtained with patient. On arrival, very well-appearing. Abdomen is soft, nontender, non distended. No flank tenderness. Differential includes cystitis, pyelonephritis, nephrolithiasis, atrophic vaginitis, HSV, STD, among others. Given numerous UTIs in the past, initial dose of cefdinir and phenazopyridine administered. Initial evaluation conservative with urinalysis. This demonstrated concern for pyelonephritis with protein, nitrates, leukocyte Estrace and bacteria. Because patient at baseline without signs or symptoms of clinical decompensation, deemed appropriate for discharge. Results were relayed to patient who voiced understanding and were agreeable to outpatient management and follow up. I discussed my clinical impression with patient and answered all questions. At this time, the evidence for any other entities in the differential is insufficient to warrant any further testing or ED observation. This was explained as well. Advisory was given that persistent or worsening symptoms require further evaluation. I confirmed the understanding of this discussion.. Overhead [employer]er disclaimer Much of this encounter note is an electronic cut off operator scorer spoken language to printed text. Electronic cut off operator scorer of the spoken language may permit errors. Although I have reviewed the note, some errors may still exist. Critical Care Critical Care Time Critical Care Time: No
[2024-08-15 21:26] LABS: Blood, Urine Negative (Negative); Glucose,Urine (UA) TRACE (Negative); Ketones,Urine TRACE (Negative); Leukocyte Esterase,Urine 1+ (Negative); Nitrate,Urine POSITIVE (Negative); Protein,Urine 2+ (Negative); Specific Gravity, Urine >= 1.030 (1.005-1.030)
[2024-08-15] MEDS: CEFDINIR 300MG CAPSULE 300 MG PO (21:26)
[2024-08-15] MEDS: PHENAZOPYRIDINE 200MG TABLET 100 MG PO (21:26)
[2024-08-15 21:33] LABS: Appearance,Urine Cloudy (Clear); Bilirubin,Urine 2+ (Negative); Color,Urine Red (Yellow)
[2024-08-15 21:45] LABS: Bacteria,Urine 3+ /lpf; WBC,Urine 50-100 #/hpf (0-3)
[2024-08-15 22:23] VITALS: BP 111/61; PULSE 94; RESP 20; TEMP 36.7; O2SAT 97
[2024-08-18 05:10] LABS: Neisseria gonorrhoeae, NAA Negative (Negative); Trichomonas Vaginalis, NAA Negative (Negative)
== END 2024-08-15 22:27 | disposition home or self-care (01) ==
PROVIDERS: Emergency Provider Emergency Medicine; PCP Nurse Practitioner Family
DX: N12 Tubulo-interstitial nephritis, not specified as acute or chronic (principal); R10.2 Pelvic and perineal pain; R30.0 Dysuria
CPT/HCPCS: 81001; 87086; 87088; 87186; 87491; 87591; 87661; 99283

== ENCOUNTER 2024-08-17 14:14 | Outpatient (CLI) | payer MEDICAID, SELFPAY ==
--- NOTE | 2024-08-17 14:22 | MR_ITS ---
PROCEDURE INFORMATION: Exam: MR Lumbar Spine Without and With Contrast Exam date and time: 08/17/2024 3:05 PM Age: 59 years old Clinical indication: Lumbago; Additional info: Loss of bowel and bladder TECHNIQUE: Imaging protocol: Magnetic resonance imaging of the lumbar spine without and with contrast. Contrast material: ISOVUE; Contrast volume: 16 ml; Contrast route: IV; COMPARISON: No relevant prior studies available. FINDINGS: Bones/joints: The vertebral body heights are maintained. There is grade 1 anterolisthesis of L4 on L5 and L5 on S1. There is [id number] multilevel degenerative disc disease. Spinal cord: Visualized cord, conus medullaris and cauda equina are unremarkable without compression. L1-L2: No significant disc bulge or herniation. No severe spinal canal stenosis. No significant neural foraminal narrowing. L2-L3: No significant disc bulge or herniation. No severe spinal canal stenosis. No significant neural foraminal narrowing. L3-L4: There is mild diffuse disc bulging without significant spinal canal or neural foraminal stenosis. L4-L5: There is mild spinal canal stenosis secondary to anterolisthesis of L4 on L5, mild diffuse disc bulging, and facet hypertrophy. The neural foramina appear patent. L5-S1: There is mild spinal canal stenosis secondary to anterolisthesis of L5 on S1 and mild diffuse disc bulging. There is moderate right and mild left neural foraminal stenosis secondary to anterolisthesis of L5 on S1 and foraminal disc bulging. Soft tissues: Unremarkable. IMPRESSION: 1. Grade 1 anterolisthesis of L4 on L5 and L5 on S1. 2. Mild spinal canal stenosis at L4-L5 and L5-S1. Please see above for specific findings at each level.
--- NOTE | 2024-08-17 14:22 | MR_ITS ---
PROCEDURE INFORMATION: Exam: MR Cervical Spine Without and With Contrast Exam date and time: 08/17/2024 3:05 PM Age: 59 years old Clinical indication: Neck pain; Additional info: Numbness in hands TECHNIQUE: Imaging protocol: Magnetic resonance imaging of the cervical spine without and with contrast. Contrast material: ISOVUE; Contrast volume: 16 ml; Contrast route: IV; COMPARISON: No relevant prior studies available. FINDINGS: Bones/joints: The vertebral body heights are maintained. There is slight grade 1 retrolisthesis of C3 on C4. Otherwise alignment is maintained. There is [id number] multilevel degenerative disc disease. There is straightening of cervical lordosis. Spinal cord: Normal signal. No cord compression. C2-C3: No significant disc bulge or herniation. No severe spinal canal stenosis. No significant neural foraminal narrowing. C3-C4: There is mild spinal canal stenosis secondary to diffuse disc osteophyte bulging which effaces the anterior thecal sac. The left neural foramen appears patent. There is severe right neural foraminal stenosis secondary to a large foraminal disc osteophyte complex and facet hypertrophy. C4-C5: There is minimal central disc bulging without significant spinal canal or neural foraminal stenosis. C5-C6: There is moderate diffuse disc osteophyte bulging which effaces the anterior thecal sac. There is mild spinal canal stenosis. There is severe right and moderate left neural foraminal stenosis secondary to foraminal disc osteophyte ridging and facet hypertrophy. C6-C7: There is a small to moderate-sized left paracentral disc protrusion which effaces the anterior thecal sac. Otherwise there is no significant spinal canal or neural foraminal stenosis. C7-T1: No significant disc bulge or herniation. No severe spinal canal stenosis. No significant neural foraminal narrowing. Soft tissues: Unremarkable. Vasculature: Expected flow voids in the vertebral arteries. IMPRESSION: Degenerative changes as described. Please see above for specific findings at each level.
[2024-08-17] MEDS: GADOTERIDOL INJ 20ML SYRINGE 16 ML IV (16:34)
[2024-08-17] MEDS: SODIUM CHLORIDE 0.9% 10ML SYR (RAD ONLY) 10 ML IV (16:34)
== END 2024-08-17 23:59 | disposition home or self-care (01) ==
LOC: RAD 14:15
PROVIDERS: PCP Nurse Practitioner Family; Visit Provider Family Medicine
DX: M48.061 Spinal stenosis, lumbar region without neurogenic claudication (principal); M54.9 Dorsalgia, unspecified; R20.0 Anesthesia of skin
CPT/HCPCS: 72156; 72158; A9576

== ENCOUNTER 2024-09-20 10:36 | Outpatient (POV) | payer MEDICAID, SELFPAY ==
[2024-09-20 15:11] VITALS: BP 138/95; PULSE 111; RESP 18; O2SAT 98; BMI 26.6
--- NOTE | 2024-09-20 16:01 | EXP.PAIN.OV ---
HPI Data of Consult Patient: new to practice Consult date: 09/20/24 Requesting Physician: Shannan Hare APRN Primary Care Provider: Mark Trevizo APRN Consult Narrative Reason for consult: Neck pain, low back pain, bilateral hip pain, upper thigh pain History of present illness: Ms. Lemon is a 59 year old female who presents today as a new patient. She is a referral from Mark Bonds's office. Today she rates her pain a 7 out of 10. Patient states that she has had longstanding low back pain over the last 2 years related to 2 falls that she had at that timeframe. Patient however states that she is progressively worsening pain in and around her left hip primarily and going into her upper left leg. She states the last month has been severe and that she has tried conservative therapy such as oral medications, heat and ice, topicals with no additional improvement. Patient describes it as a constant aching sensation that does go down into her buttocks area. She states the pain is worse with increased activity or such activities such as long car rides, going up stairs or prolonged standing, sitting or walking. Patient does also have chronic neck pain however she states the low back is much worse. Patient states that nothing seems to make it better. Patient has seen a chiropractor for 2 years with no additional help and even feels like it may have worsened the overall pain. She states that she has not had any prior surgery and denies any heart or kidney issues. Patient has been tried on diclofenac however states that it caused stomach issues. Patient does also state that she has had in the past a collapsed urethra and bladder problems and so she has issues both her back and other areas. Her Mauro has been reviewed and is appropriate. CC: Shannan Hare APRN [facility] Disclaimer: The information contained in this section may have been updated after the patient was seen, as this information can be updated by other users. Medical History Endometriosis Inguinal hernia Depression Hypertension Hypothyroid Surgical History H/O laparoscopy H/O inguinal hernia repair History of section Family History Other Colon cancer Family history of cancer Family history of myocardial infarction Social History Smoking Status: Current every day smoker smoking status start date: 1/2 pack day years smoked: 30 quit status: considering quitting alcohol intake: never substance use type: denies use current occupational status: other Travel in the last 8 weeks: None household members: family housing: house marital status: single education level: college Review of Systems Review of Systems Review of systems:: pertinent systems reviewed and negative unless documented below Review of systems (narrative): Review of Systems: General: No recent weight changes, no fever, no sleep disturbances Respiratory: No cough, no shortness of air, no recurring pulmonary infections Cardiovascular/peripheral vascular: No chest pain, no palpitations, no edema, no shortness of breath Gastrointestinal: No new onset incontinence, normal bowel movements reported Genitourinary: No new onset incontinence Musculoskeletal: Low back pain, bilateral hip pain, neck pain, upper thigh pain Psychiatric: [Normal mood/affect] Neurological: [Denies weakness in extremities], [denies balance issues] Meds Home Medications and Allergies Home Medications ?Medication ?Instructions ?Recorded ?Confirmed ?Type spironolactone 25 mg tablet 25 mg PO DAILY chf #90 tabs 08/20/23 09/20/24 Rx triamcinolone acetonide 0.5 % 1 applic topical BID #15 grams 08/20/23 09/20/24 Rx topical cream terbinafine HCl 1 % topical cream 1 applic topical BID fungus #30 01/02/24 09/20/24 Rx grams cholecalciferol (vitamin D3) 1,250 1,250 mcg PO WEEKLY #14 caps 03/04/24 09/20/24 Rx mcg (50,000 unit) capsule fluticasone propionate 50 1 spray intranasal DAILY #16 grams 04/01/24 09/20/24 Rx mcg/actuation nasal spray,suspension (Flonase Allergy Relief) nicotine 21 mg/24 hr daily 1 patch transdermal DAILY #28 ea 05/20/24 09/20/24 Rx transdermal patch (Nicoderm CQ) hydroxyzine pamoate 100 mg capsule 100 mg PO HS #30 caps 07/12/24 09/20/24 Rx levothyroxine 125 mcg tablet 125 mcg PO DAILY #90 tabs 07/13/24 09/20/24 Rx venlafaxine 150 mg 150 mg PO DAILY Depression #90 caps 07/13/24 09/20/24 Rx capsule,extended release 24 hr venlafaxine 37.5 mg 37.5 mg PO DAILY Depression #90 07/13/24 09/20/24 Rx capsule,extended release 24 hr caps (Effexor XR) liothyronine 50 mcg tablet See Rx Instructions .Route 07/19/24 09/20/24 Rx .COMPLEX #90 tabs ammonium lactate 12 % topical cream 1 applic topical BID dry skin, 07/26/24 09/20/24 Rx callus care #385 grams lisinopril 20 mg tablet 20 mg PO DAILY High Blood Pressure 08/06/24 09/20/24 Rx #90 tabs cefdinir 300 mg capsule 300 mg PO BID 7 days #14 caps 08/15/24 09/20/24 Rx phenazopyridine 100 mg tablet 100 mg PO Q8H 6 doses #14 tabs 08/15/24 09/20/24 Rx naproxen 500 mg tablet 500 mg PO BID #30 tabs 09/07/24 09/20/24 Rx prednisone 20 mg tablet 20 mg PO BID 5 days #10 tabs 09/07/24 09/20/24 Rx estradiol 0.01% (0.1 mg/gram) See Rx Instructions vaginal 09/13/24 09/20/24 Rx vaginal cream .COMPLEX #42.5 grams oxybutynin chloride 10 mg 10 mg PO DAILY #90 tabs 09/13/24 09/20/24 Rx tablet,extended release 24 hr albuterol sulfate 90 mcg/actuation 2 puff inhalation Q4-6H PRN 09/14/24 09/20/24 Rx aerosol inhaler (Ventolin HFA) shortness of breath or wheezing #8.5 grams dextroamphetamine-amphetamine 10 10 mg PO BID ADHD #60 tabs 09/14/24 09/20/24 Rx mg tablet (Adderall) montelukast 10 mg tablet 10 mg PO DAILY #90 tabs 09/14/24 09/20/24 Rx (Singulair) New Prescriptions to Start Prescriptions: Allergies Allergy/AdvReac Type Severity Reaction Status Date / Time No Known Allergies Allergy Verified 09/13/24 10:59 Objective Vital signs: Pulse Resp BP Pulse Ox O2 Del Method 111 H 18 138/95 H 98 Room Air 09/20/24 15:11 09/20/24 15:11 09/20/24 15:11 09/20/24 15:11 09/20/24 15:11 Narrative: Physical Exam: General: Alert and oriented x3, no acute distress, pleasant and cooperative Lungs: Respirations even and unlabored, symmetrical chest expansion Eyes: PERRL Musculoskeletal: Flexion and extension of lumbar [spine] somewhat guarded secondary to pain, [antalgic gait noted] point tenderness along bilateral SIs with positive bilateral Denise's, Mulu's, Gaenslen's, compression and distraction exam Neurological: Speech clear, no gross sensory deficit Additional findings Additional findings: FINDINGS: Bones/joints: The vertebral body heights are maintained. There is grade 1 anterolisthesis of L4 on L5 and L5 on S1. There is [id number] multilevel degenerative disc disease. Spinal cord: Visualized cord, conus medullaris and cauda equina are unremarkable without compression. L1-L2: No significant disc bulge or herniation. No severe spinal canal stenosis. No significant neural foraminal narrowing. L2-L3: No significant disc bulge or herniation. No severe spinal canal stenosis. No significant neural foraminal narrowing. L3-L4: There is mild diffuse disc bulging without significant spinal canal or neural foraminal stenosis. L4-L5: There is mild spinal canal stenosis secondary to anterolisthesis of L4 on L5, mild diffuse disc bulging, and facet hypertrophy. The neural foramina appear patent. L5-S1: There is mild spinal canal stenosis secondary to anterolisthesis of L5 on S1 and mild diffuse disc bulging. There is moderate right and mild left neural foraminal stenosis secondary to anterolisthesis of L5 on S1 and foraminal disc bulging. Soft tissues: Unremarkable. IMPRESSION: 1. Grade 1 anterolisthesis of L4 on L5 and L5 on S1. 2. Mild spinal canal stenosis at L4-L5 and L5-S1. Please see above for specific findings at each level. Assessment and Plan *Assessment and plan (1) Bilateral sacroiliitis: Status: Acute Category: Medical Code(s): M46.1 - Sacroiliitis, not elsewhere classified (2) Degenerative disc disease, lumbar: Status: Acute Category: Medical Code(s): M51.369 - Other intervertebral disc degeneration, lumbar region without mention of lumbar back pain or lower extremity pain (3) Degenerative disc disease, cervical: Status: Acute Category: Medical Code(s): M50.30 - Other cervical disc degeneration, unspecified cervical region Plan Patient is experiencing worsening pain along the low back and bilateral hips. They did have limited range of motion of the lumbar spine along with point tenderness along bilateral SI joints and a positive bilateral Denise's, Mulu's, Gaenslen's, compression and distraction exam. I did discuss with the patient that I do believe they would benefit from bilateral SI injections. Risk and benefits were discussed with the patient and they would like to proceed forward with this option. Patient has tried and failed conservative therapy including continued at home stretching exercise for longer than 12 weeks. Patient will be scheduled for bilateral SI injections under fluoroscopy. Will also order the patient a compounded cream. Patient has been instructed to contact the clinic with any concerns before the next appointment. Dr. Bunn has reviewed this note and agrees with this plan of care. This note was dictated using voice recognition software and make contain errors or omissions. All injections are used with Lidocaine or Bupivacaine and Depo Medrol.
== END 2024-09-20 23:59 | disposition home or self-care (01) ==
PROVIDERS: PCP Nurse Practitioner Family; Visit Provider Nurse Practitioner Family
DX: M46.1 Sacroiliitis, not elsewhere classified (principal); M51.369 Other intervertebral disc degeneration, lumbar region without mention of lumbar back pain or lower extremity pain; M50.30 Other cervical disc degeneration, unspecified cervical region; F17.210 Nicotine dependence, cigarettes, uncomplicated; Z79.899 Other long term (current) drug therapy
CPT/HCPCS: 99202; G0463

== ENCOUNTER 2024-10-12 12:42 | Day surgery (SDC) | payer MEDICAID, SELFPAY ==
[2024-10-12 13:25] VITALS: BP 139/78; PULSE 104; RESP 16; TEMP 36.6; O2SAT 95; BMI 27.3
[2024-10-12] MEDS: BUPIVACAINE 0.25% 10ML INJ 25 MG IJ (13:45)
[2024-10-12] MEDS: LIDOCAINE 1% 5ML PF VIAL 5 ML (13:46)
--- NOTE | 2024-10-12 13:55 | P.PCN_ITS ---
Procedure Date: 10/12/24 Time: 14:00 Anesthesiologist:: Inocencio Lowe CRNA Complications:: None Pre-procedure Diagnosis:: Bilateral sacroiliitis Post-procedure Diagnosis:: Same Indications for Procedure:: Patient is a very pleasant 59-year-old female comes our clinic today for bilateral sacroiliac joint injections cortisone and local anesthetic. She describes low lumbar back pain off the midline bilaterally. Difficulty standing for any length of time. Difficulty transitioning from sitting to standing. Upon examination she has extreme point tenderness over the bilateral sacroiliac joints. She rates her pain 8/10. Procedure Details:: Procedure: Bilateral sacroiliac joint injections under fluoroscopy Informed consent was obtained and the risks and benefits of the procedure were explained to the patient.~ The patient was taken to the procedure room and noninvasive monitors were placed including a noninvasive blood pressure cuff and pulse oximeter.~ The patient was placed prone on the procedure table. Both hips were cleansed using Betadine as a cleansing solution. C-arm fluoroscopy was used to view the right sacroiliac joint.~ The skin and subcutaneous tissues were anesthetized using lidocaine 1.5% and a 25-gauge needle.~ After this, a 22-gauge spinal needle was inserted under fluoroscopic guidance into the inferior aspect of the right sacroiliac joint.~ Omnipaque dye was injected and good spread was seen throughout the joint.~ After this, approximately 5 mL of bupivacaine, 0.25% and Depo-Medrol, 40 mg was incrementally injected into the right sacroiliac joint. We then moved to the left sacroiliac joint.~ The skin and subcutaneous tissues were anesthetized using lidocaine 1.5% and a 25-gauge needle.~ After this, a 22- gauge spinal needle was inserted under fluoroscopic guidance into the inferior aspect of the left sacroiliac joint.~ Omnipaque dye was injected and good spread was seen throughout the joint. After this, approximately 5 mL of bupivacaine, 0.25% and Depo-Medrol, 40 mg was incrementally injected into the left sacroiliac joint.~ The patient tolerated the procedure well with no complications. The patient was observed in the Pain Clinic and then was discharged home neurologically intact. Plan and Disposition:: Patient was discharged without incident.
[2024-10-12 14:04] VITALS: BP 130/82; PULSE 97; RESP 16; O2SAT 97
== END 2024-10-12 14:05 | disposition home or self-care (01) ==
PROVIDERS: PCP Nurse Practitioner Family; Visit Provider Nurse Anesthetist, Certified Registered
DX: M46.1 Sacroiliitis, not elsewhere classified (principal)
CPT/HCPCS: 27096; G0260; J1010

== ENCOUNTER 2024-10-30 15:23 | Emergency (ER) | payer MEDICAID, SELFPAY ==
[2024-10-30 16:44] VITALS: BP 131/87; PULSE 101; RESP 19; TEMP 36.8; O2SAT 98; BMI 26.2
--- NOTE | 2024-10-30 16:48 | ED_ITS ---
Discharge Plan Disposition Patient Disposition: Home, Self-Care Condition: Good Prescriptions Prescriptions: New venlafaxine 37.5 mg capsule,extended release 24hr 37.5 mg PO DAILY Qty: 3 0RF venlafaxine 150 mg capsule,extended release 24hr 150 mg PO DAILY Qty: 3 0RF levothyroxine 125 mcg capsule 125 mcg PO DAILY Qty: 3 0RF No Action estradiol 0.01 % (0.1 mg/gram) cream See Rx Instructions vaginal .COMPLEX Qty: 42.5 2RF Rx Instructions: Using finger technique daily for two weeks and then twice weekly vaginally; oxybutynin chloride 10 mg tablet extended release 24hr 10 mg PO DAILY Qty: 90 3RF triamcinolone acetonide 0.5 % cream 1 applic topical BID Qty: 15 0RF nicotine [Nicoderm CQ] 21 mg/24 hr patch 24 hour 1 patch transdermal DAILY Qty: 28 0RF ammonium lactate 12 % cream 1 applic topical BID Qty: 385 1RF prednisone 20 mg tablet 20 mg PO BID 5 Days Qty: 10 0RF naproxen 500 mg tablet 500 mg PO BID Qty: 30 0RF terbinafine HCl 1 % cream 1 applic topical BID Qty: 30 2RF fluticasone propionate [Flonase Allergy Relief] 50 mcg/actuation spray,suspension 1 spray intranasal DAILY Qty: 16 2RF Rx Instructions: administer into each nostril lisinopril 20 mg tablet 20 mg PO DAILY Qty: 90 0RF albuterol sulfate [Ventolin HFA] 90 mcg/actuation HFA aerosol inhaler 2 puff inhalation Q4-6H PRN (Reason: shortness of breath or wheezing) Qty: 8.5 2RF montelukast [Singulair] 10 mg tablet 10 mg PO DAILY Qty: 90 0RF spironolactone 25 mg tablet 25 mg PO DAILY Qty: 90 2RF hydroxyzine pamoate 100 mg capsule 100 mg PO HS Qty: 30 0RF dextroamphetamine-amphetamine [Adderall] 10 mg tablet 10 mg PO BID Qty: 60 0RF Rx Instructions: administer doses at least 4-6 hours apart cholecalciferol (vitamin D3) 1,250 mcg (50,000 unit) capsule 1,250 mcg PO WEEKLY Qty: 14 2RF levothyroxine 125 mcg tablet 125 mcg PO DAILY Qty: 90 3RF venlafaxine [Effexor XR] 37.5 mg capsule,extended release 24hr 37.5 mg PO DAILY Qty: 90 3RF venlafaxine 150 mg capsule,extended release 24hr 150 mg PO DAILY Qty: 90 3RF cefdinir 300 mg capsule 300 mg PO BID 7 Days Qty: 14 0RF phenazopyridine 100 mg tablet 100 mg PO Q8H Qty: 14 0RF meloxicam 15 mg tablet 15 mg PO DAILY Qty: 30 0RF tizanidine [Zanaflex] 4 mg tablet 4 mg PO HS Qty: 30 0RF Referrals Follow up/Referrals: Mark Trevizo APRN [Primary Care Provider] - See instructions Activity Restrictions/Add. Instructions Additional Instructions/Restrictions: You was sent in enough medication to Cover you until Friday when [facility] opens and you can picker tender your medication Follow up with your Family Doctor Clinical Impressions Clinical Impression: Encounter for medication refill Print Language Print Language: Niuean Discharge ED Provider: Aziza Bhakta [facility] HPI General Stated complaint: is out of medicine and was told to come here Mode of Arrival: Ambulatory Source of Information: Patient Limitations: No Limitations Time Seen by Provider: 10/30/24 16:48 Description of Symptoms (Recalled from Triage Doc. by RN): PATIENT REQUESTING MEDICATION REFILLS FOR VENLAFAXINE AND LEVOTHYROXINE HEENT Symptoms (Recalled from RN notes): No Resp Symptoms (Recalled from RN notes): No Skin Symptoms (Recalled from RN notes): No MS Symptoms (Recalled from RN notes): No Functional Status (Recalled from RN notes): WNL History of Present Illness Provider Complaint: Patient states that she is out of her Venlafaxine and her levothyroxine and she was worried if she didnt get some she may have withdrawl symptoms so she came in to see if she could get some refills on this medication because she is out Related Data Previous Rx's ?Medication ?Instructions ?Recorded triamcinolone acetonide 0.5 % 1 applic topical BID #15 grams 08/20/23 topical cream terbinafine HCl 1 % topical cream 1 applic topical BID fungus #30 01/02/24 grams fluticasone propionate 50 1 spray intranasal DAILY #16 grams 04/01/24 mcg/actuation nasal spray,suspension (Flonase Allergy Relief) nicotine 21 mg/24 hr daily 1 patch transdermal DAILY #28 ea 05/20/24 transdermal patch (Nicoderm CQ) ammonium lactate 12 % topical cream 1 applic topical BID dry skin, 07/26/24 callus care #385 grams lisinopril 20 mg tablet 20 mg PO DAILY High Blood Pressure 08/06/24 #90 tabs cefdinir 300 mg capsule 300 mg PO BID 7 days #14 caps 08/15/24 phenazopyridine 100 mg tablet 100 mg PO Q8H 6 doses #14 tabs 08/15/24 naproxen 500 mg tablet 500 mg PO BID #30 tabs 09/07/24 prednisone 20 mg tablet 20 mg PO BID 5 days #10 tabs 09/07/24 estradiol 0.01% (0.1 mg/gram) See Rx Instructions vaginal 09/13/24 vaginal cream .COMPLEX #42.5 grams oxybutynin chloride 10 mg 10 mg PO DAILY #90 tabs 09/13/24 tablet,extended release 24 hr albuterol sulfate 90 mcg/actuation 2 puff inhalation Q4-6H PRN 09/14/24 aerosol inhaler (Ventolin HFA) shortness of breath or wheezing #8.5 grams montelukast 10 mg tablet 10 mg PO DAILY #90 tabs 09/14/24 (Singulair) meloxicam 15 mg tablet 15 mg PO DAILY #30 tabs 09/20/24 hydroxyzine pamoate 100 mg capsule 100 mg PO HS #30 caps 09/30/24 spironolactone 25 mg tablet 25 mg PO DAILY chf #90 tabs 09/30/24 tizanidine 4 mg tablet (Zanaflex) 4 mg PO HS #30 tabs 10/13/24 dextroamphetamine-amphetamine 10 10 mg PO BID ADHD #60 tabs 10/18/24 mg tablet (Adderall) cholecalciferol (vitamin D3) 1,250 1,250 mcg PO WEEKLY #14 caps 10/30/24 mcg (50,000 unit) capsule levothyroxine 125 mcg capsule 125 mcg PO DAILY #3 caps 10/30/24 levothyroxine 125 mcg tablet 125 mcg PO DAILY #90 tabs 10/30/24 venlafaxine 150 mg 150 mg PO DAILY #3 caps 10/30/24 capsule,extended release 24 hr venlafaxine 150 mg 150 mg PO DAILY Depression #90 caps 10/30/24 capsule,extended release 24 hr venlafaxine 37.5 mg 37.5 mg PO DAILY #3 caps 10/30/24 capsule,extended release 24 hr venlafaxine 37.5 mg 37.5 mg PO DAILY Depression #90 10/30/24 capsule,extended release 24 hr caps (Effexor XR) Allergies Allergy/AdvReac Type Severity Reaction Status Date / Time No Known Allergies Allergy Verified 09/13/24 10:59 Worker's Comp Is this a Worker's Comp case?: No PFSH [facility] Disclaimer: The information contained in this section may have been updated after the patient was seen, as this information can be updated by other users. Medical History Endometriosis Inguinal hernia Depression Hypertension Hypothyroid Surgical History H/O laparoscopy H/O inguinal hernia repair History of section Family History Other Colon cancer Family history of cancer Family history of myocardial infarction Social History Smoking Status: Current every day smoker smoking status start date: 1/2 pack day years smoked: 30 quit status: considering quitting alcohol intake: never substance use type: denies use current occupational status: unemployed Travel in the last 8 weeks: None household members: family housing: house marital status: single education level: college Have you lived/traveled outside [place] in past 30 days?: No Contact w/someone who lives/traveled outside US past 30 days?: No Exposure to someone with infectious disease in past 14 days?: No Do you have a fever (greater than 100.4 F or 38 C)?: No Have you tested positive for COVID-19: No Exposed to someone with COVID-19 in past 14 days?: Yes Do you have a sore throat?: No Do you have a cough?: No Do you have any weakness?: No Do you have any diarrhea?: No Are you experiencing any unusual bleeding?: No Do you have any muscle aches/pain?: No Do you have any abdominal pain?: No Are you experiencing loss of taste or smell?: No ROS Obtained: Yes All systems reviewed & no additional complaints except as documented and Yes Systems reviewed as appropriate & no additional complaints except as documented Constitutional Constitutional: Reports system reviewed and no additional complaints, except as documented and Reports as per HPI ENT Ears, Nose, Mouth, and Throat: Reports system reviewed and no additional complaints, except as documented and Reports as per HPI Cardiovascular Cardiovascular: Reports system reviewed and no additional complaints, except as documented and Reports as per HPI Respiratory Respiratory: Reports system reviewed and no additional complaints, except as documented and Reports as per HPI Gastrointestinal Gastrointestingal: Reports system reviewed and no additional complaints, except as documented and as per HPI Musculoskeletal Musculoskeletal: Reports system reviewed and no additional complaints, except as documented and Reports as per HPI Integumentary/Breasts Skin/Breast: Reports system reviewed and no additional complaints, except as documented and Reports as per HPI Neurologic Neurologic: Reports system reviewed and no additional complaints, except as docu mented and Reports as per HPI Physical Exam General General appearance: alert and in no apparent distress Head Head exam: atraumatic, normocephalic and normal inspection ENT ENT exam: Present normal exam, normal oropharynx, mucous membranes moist and TM's normal bilaterally Respiratory Respiratory exam: Present normal lung sounds bilaterally; Absent respiratory distress or wheezes Cardiovascular Cardiovascular exam: Present regular rate, normal rhythm and normal heart sounds Neurological Exam Neurological exam: Present alert, oriented X3 and normal gait Medical Decision Making Medical Records Screening: Per USPSTF and CDC recommendations, given the prevalence of disease in our region, it is our hospital?s policy to screen for HIV and viral Hepatitis for all patients aged 18 and over and those with ongoing risk factors. Mauro Inquiry Pt receiving controlled substance: No Mauro was queried for this patient: No Vital Signs: 10/30/24 16:44 Temperature 98.3 F Temperature Source Oral Pulse Rate [Left Brachial] 101 H Respiratory Rate 19 Blood Pressure [Left Arm] 131/87 Blood Pressure Mean [Left Arm] 101 Blood Pressure Source [Left Arm] Automatic Cuff Blood Pressure Position [Left Arm] Sitting 02 Sat by Pulse Oximetry 98 Oxygen Delivery Method Room Air Medical Decision Narrative: viewing patient home meds appears like she has been called in 90 day refills on these medications on 10/30/24 but [facility] pharmacy where they was sent is not open today discussed with patient and informed her that we could send her in enough medication to cover her for the weekend until she can get to [facility] on Friday to get her medication patient was upset and wanting 30 days of medication sent in and again informed patient that it appears that 90 days of her V enlafaxine 37.5 and 150mg along with her Levothyroxine 90 days was sent to [facility] to [facility] that has been sent by her PCP
[2024-10-30 17:20] VITALS: BP 131/87; PULSE 101; RESP 19; TEMP 36.8; O2SAT 98
== END 2024-10-30 17:23 | disposition home or self-care (01) ==
PROVIDERS: Emergency Provider Nurse Practitioner; PCP Nurse Practitioner Family
DX: Z76.0 Encounter for issue of repeat prescription (principal)
CPT/HCPCS: 99213; G0381

== ENCOUNTER 2024-11-09 13:52 | Emergency (ER) | payer MEDICAID, SELFPAY ==
[2024-11-09] VITALS (7 sets, daily range): BP systolic 117–133; BP diastolic 85–95; PULSE 71–98; RESP 18; TEMP 36.8–37.1; O2SAT 92–99; BMI 26.6
--- NOTE | 2024-11-09 13:58 | ED_ITS ---
Discharge Plan Disposition Patient Disposition: Home, Self-Care Condition: Good Prescriptions Prescriptions: New prednisone 50 mg tablet 50 mg PO DAILY 5 Days Qty: 5 0RF No Action estradiol 0.01 % (0.1 mg/gram) cream See Rx Instructions vaginal .COMPLEX Qty: 42.5 2RF Rx Instructions: Using finger technique daily for two weeks and then twice weekly vaginally; oxybutynin chloride 10 mg tablet extended release 24hr 10 mg PO DAILY Qty: 90 3RF triamcinolone acetonide 0.5 % cream 1 applic topical BID Qty: 15 0RF nicotine [Nicoderm CQ] 21 mg/24 hr patch 24 hour 1 patch transdermal DAILY Qty: 28 0RF ammonium lactate 12 % cream 1 applic topical BID Qty: 385 1RF prednisone 20 mg tablet 20 mg PO BID 5 Days Qty: 10 0RF naproxen 500 mg tablet 500 mg PO BID Qty: 30 0RF terbinafine HCl 1 % cream 1 applic topical BID Qty: 30 2RF fluticasone propionate [Flonase Allergy Relief] 50 mcg/actuation spray,suspension 1 spray intranasal DAILY Qty: 16 2RF Rx Instructions: administer into each nostril albuterol sulfate [Ventolin HFA] 90 mcg/actuation HFA aerosol inhaler 2 puff inhalation Q4-6H PRN (Reason: shortness of breath or wheezing) Qty: 8.5 2RF montelukast [Singulair] 10 mg tablet 10 mg PO DAILY Qty: 90 0RF spironolactone 25 mg tablet 25 mg PO DAILY Qty: 90 2RF hydroxyzine pamoate 100 mg capsule 100 mg PO HS Qty: 30 0RF dextroamphetamine-amphetamine [Adderall] 10 mg tablet 10 mg PO BID Qty: 60 0RF Rx Instructions: administer doses at least 4-6 hours apart levothyroxine 125 mcg tablet 125 mcg PO DAILY Qty: 90 3RF venlafaxine [Effexor XR] 37.5 mg capsule,extended release 24hr 37.5 mg PO DAILY Qty: 90 3RF venlafaxine 150 mg capsule,extended release 24hr 150 mg PO DAILY Qty: 90 3RF cholecalciferol (vitamin D3) 1,250 mcg (50,000 unit) capsule 1,250 mcg PO WEEKLY Qty: 14 2RF lisinopril 20 mg tablet 20 mg PO DAILY Qty: 90 0RF cefdinir 300 mg capsule 300 mg PO BID 7 Days Qty: 14 0RF phenazopyridine 100 mg tablet 100 mg PO Q8H Qty: 14 0RF meloxicam 15 mg tablet 15 mg PO DAILY Qty: 30 0RF tizanidine [Zanaflex] 4 mg tablet 4 mg PO HS Qty: 30 0RF venlafaxine 37.5 mg capsule,extended release 24hr 37.5 mg PO DAILY Qty: 3 0RF venlafaxine 150 mg capsule,extended release 24hr 150 mg PO DAILY Qty: 3 0RF levothyroxine 125 mcg capsule 125 mcg PO DAILY Qty: 3 0RF Referrals Follow up/Referrals: Mark Trevizo APRN [Primary Care Provider] - See instructions Derik Guzamn II, MD [Staff Physician] - See instructions (Elevated AST ALT) Flavio Álvarez MD [Staff Physician] - See instructions Activity Restrictions/Add. Instructions Additional Instructions/Restrictions: As we discussed please call tomorrow to make an appointment both with gastroenterology and with hematology oncology. Please tell hematology oncology are looking for the infusion center. Follow-up with your PCP within 48 hours for recheck of labs. For any worsening signs or symptoms return to the ER as needed. Clinical Impressions Clinical Impression: Polyarthralgia, Transaminitis Print Language Print Language: Lao Discharge ED Provider: Chpao Braun General Adult HPI <AIDEE Myers - Last Filed: 11/09/24 21:48> General Chief complaint: PAIN Stated complaint: pain and inflamation Time Seen by Provider: 11/09/24 13:58 History of Present Illness HPI narrative: Patient presents for evaluation of polyarthralgia. Patient states that she has rheumatoid arthritis that flares when she gets highly stressed. She states that she has flares approximately every 3 months. 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 She is on no disease modifying medications. She denies any fever chills hemoptysis hematochezia melena nausea vomiting diarrhea recent illnesses. She has been taking ibuprofen without relief. She is requesting a steroid shot. In the past when she has had bad flares she has gone to pain management for steroid injections but she could not get in today. Related Data Previous Rx's ?Medication ?Instructions ?Recorded triamcinolone acetonide 0.5 % 1 applic topical BID #15 grams 08/20/23 topical cream terbinafine HCl 1 % topical cream 1 applic topical BID fungus #30 01/02/24 grams fluticasone propionate 50 1 spray intranasal DAILY #16 grams 04/01/24 mcg/actuation nasal spray,suspension (Flonase Allergy Relief) nicotine 21 mg/24 hr daily 1 patch transdermal DAILY #28 ea 05/20/24 transdermal patch (Nicoderm CQ) ammonium lactate 12 % topical cream 1 applic topical BID dry skin, 07/26/24 callus care #385 grams cefdinir 300 mg capsule 300 mg PO BID 7 days #14 caps 08/15/24 phenazopyridine 100 mg tablet 100 mg PO Q8H 6 doses #14 tabs 08/15/24 naproxen 500 mg tablet 500 mg PO BID #30 tabs 09/07/24 prednisone 20 mg tablet 20 mg PO BID 5 days #10 tabs 09/07/24 estradiol 0.01% (0.1 mg/gram) See Rx Instructions vaginal 09/13/24 vaginal cream .COMPLEX #42.5 grams oxybutynin chloride 10 mg 10 mg PO DAILY #90 tabs 09/13/24 tablet,extended release 24 hr albuterol sulfate 90 mcg/actuation 2 puff inhalation Q4-6H PRN 09/14/24 aerosol inhaler (Ventolin HFA) shortness of breath or wheezing #8.5 grams montelukast 10 mg tablet 10 mg PO DAILY #90 tabs 09/14/24 (Singulair) meloxicam 15 mg tablet 15 mg PO DAILY #30 tabs 09/20/24 hydroxyzine pamoate 100 mg capsule 100 mg PO HS #30 caps 09/30/24 spironolactone 25 mg tablet 25 mg PO DAILY chf #90 tabs 09/30/24 tizanidine 4 mg tablet (Zanaflex) 4 mg PO HS #30 tabs 10/13/24 dextroamphetamine-amphetamine 10 10 mg PO BID ADHD #60 tabs 10/18/24 mg tablet (Adderall) levothyroxine 125 mcg capsule 125 mcg PO DAILY #3 caps 10/30/24 levothyroxine 125 mcg tablet 125 mcg PO DAILY #90 tabs 10/30/24 venlafaxine 150 mg 150 mg PO DAILY #3 caps 10/30/24 capsule,extended release 24 hr venlafaxine 150 mg 150 mg PO DAILY Depression #90 caps 10/30/24 capsule,extended release 24 hr venlafaxine 37.5 mg 37.5 mg PO DAILY #3 caps 10/30/24 capsule,extended release 24 hr venlafaxine 37.5 mg 37.5 mg PO DAILY Depression #90 10/30/24 capsule,extended release 24 hr caps (Effexor XR) cholecalciferol (vitamin D3) 1,250 1,250 mcg PO WEEKLY #14 caps 11/08/24 mcg (50,000 unit) capsule lisinopril 20 mg tablet 20 mg PO DAILY High Blood Pressure 11/08/24 #90 tabs prednisone 50 mg tablet 50 mg PO DAILY 5 days #5 tabs 11/09/24 Allergies Allergy/AdvReac Type Severity Reaction Status Date / Time No Known Allergies Allergy Verified 09/13/24 10:59 PFSH <AIDEE Myers - Last Filed: 11/09/24 21:48> PFS Disclaimer: The information contained in this section may have been updated after the patient was seen, as this information can be updated by other users. Medical History Endometriosis Inguinal hernia Depression Hypertension Hypothyroid Surgical History H/O laparoscopy H/O inguinal hernia repair History of section Family History Other Colon cancer Family history of cancer Family history of myocardial infarction Social History Smoking Status: Never smoker smoking status start date: 1/2 pack day years smoked: 30 quit status: considering quitting alcohol intake: never substance use type: denies use current occupational status: unemployed Travel in the last 8 weeks: None household members: family housing: house marital status: single education level: college Other Medical History Have you received the Flu Vaccine for this season: No Have you received the Pneumonia Vaccine: No <AIDEE Myers - Last Filed: 11/09/24 21:48> ROS Obtained: Yes Systems reviewed as appropriate & no additional complaints except as documented Physical Exam <AIDEE Myers - Last Filed: 11/09/24 21:48> General General appearance: alert and in no apparent distress Respiratory Respiratory exam: Present normal lung sounds bilaterally Cardiovascular Cardiovascular exam: Present regular rate Neurological Exam Neurological exam: Present alert and oriented X3 Medical Decision Making <AIDEE Myers - Last Filed: 11/09/24 21:48> Medical Records Medical records reviewed: Yes I reviewed the patient's medical records. Screening: Per USPSTF and CDC recommendations, given the prevalence of disease in our region, it is our hospital?s policy to screen for HIV and viral Hepatitis for all patients aged 18 and over and those with ongoing risk factors. Mauro Inquiry Pt receiving controlled substance: No Vital Signs: 11/09/24 14:14 11/09/24 14:15 11/09/24 14:30 Temperature 98.7 F Temperature Source Oral Pulse Rate 98 H 86 Pulse Rate [Right Radial] 98 H Respiratory Rate 18 Blood Pressure 133/92 H 129/95 H Blood Pressure [Right Arm] 133/92 H Blood Pressure Mean 103 Blood Pressure Mean [Right Arm] 105 Blood Pressure Source Blood Pressure Source [Right Arm] Automatic Cuff Blood Pressure Position 02 Sat by Pulse Oximetry 98 98 96 Oxygen Delivery Method Room Air Room Air Room Air 11/09/24 15:00 11/09/24 15:30 11/09/24 15:45 Temperature Temperature Source Pulse Rate 81 71 72 Pulse Rate [Right Radial] Respiratory Rate Blood Pressure 117/85 128/85 Blood Pressure [Right Arm] Blood Pressure Mean Blood Pressure Mean [Right Arm] Blood Pressure Source Blood Pressure Source [Right Arm] Blood Pressure Position 02 Sat by Pulse Oximetry 93 L 92 L 97 Oxygen Delivery Method Room Air Room Air Room Air 11/09/24 17:28 Temperature 98.2 F Temperature Source Oral Pulse Rate 78 Pulse Rate [Right Radial] Respiratory Rate 18 Blood Pressure 128/95 H Blood Pressure [Right Arm] Blood Pressure Mean Blood Pressure Mean [Right Arm] Blood Pressure Source Automatic Cuff Blood Pressure Source [Right Arm] Blood Pressure Position Sitting 02 Sat by Pulse Oximetry Oxygen Delivery Method Room Air Lab Data Lab results reviewed: Yes I reviewed the patient's lab results. Lab Results 11/09/24 14:43: WBC 4.8, RBC 4.69, Hgb 14.0, Hct 40.2, MCV 85.7, MCH 29.9, MCHC 34.8, RDW 11.7, Plt Count 190, MPV 8.9, Neut % (Auto) 57.0, Lymph % (Auto) 24.9, [place] % (Auto) 10.4 H, Eos % (Auto) 7.3, Baso % (Auto) 0.2, Neut # (Auto) 2.7, Lymph # (Auto) 1.2, [place] # (Auto) 0.5, Eos # (Auto) 0.4, Baso # (Auto) 0.0, ESR 14, Sodium 137, Potassium 4.0, Chloride 104, Carbon Dioxide 27, Anion Gap 10.0, BUN 6 L, Creatinine 0.60, Estimated Creat Clear 130, Estimated GFR 103, Est GFR ( Amer) 125, Glucose 109 H, Calcium 8.8, Magnesium 1.7, Total Bilirubin 0.2, AST 504 H*, ALT 868 H*, Alkaline Phosphatase 78, C-Reactive Protein 4.5 H, Total Protein 6.5, Albumin 4.1, Globulin 2.4, Albumin/Globulin Ratio 1.7 11/09/24 14:45: Acetaminophen < 10 L 11/09/24 14:43 11/09/24 14:43 Orders (Tests/Meds): ED MEDICATIONS Discontinued Medications Generic Name Dose Route Start Last Admin Trade Name Freq PRN Reason Stop Dose Admin Ketorolac Tromethamine 15 mg 11/09/24 14:18 11/09/24 14:49 Ketorolac 30mg/Ml Vial IV 11/09/24 14:19 15 mg ONCE ONE Administration Methylprednisolone Sodium Succinate 125 mg 11/09/24 14:18 11/09/24 14:33 Methylprednisolone Sod Succ 125mg Vial IV 11/09/24 14:19 125 mg ONCE ONE Administration ORDERS Category Date Time Status US RUQ [US abdomen limited] Stat Exams 11/09/24 15:42 Completed Acetaminophen Stat Lab 11/09/24 14:45 Completed CBC w/Auto Diff [Complete Blood Count Auto Diff] Stat Lab 11/09/24 14:43 Completed CMP [Comprehensive Metabolic Panel] Stat Lab 11/09/24 14:43 Completed CRP [C-Reactive Protein] Stat Lab 11/09/24 14:43 Completed Cytomegalovirus (CMV) Ab, IgM Stat Lab 11/09/24 17:19 Received EBV Ab VCA, IgM Stat Lab 11/09/24 17:19 Received ESR [Erythrocyte Sedimentation Rate] Stat Lab 11/09/24 14:43 Completed Hepatitis Panel Stat Lab 11/09/24 14:43 Received Magnesium Stat Lab 11/09/24 14:43 Completed Medical Decision Narrative: In summary patient is a 89-year-old female who presents to the emergency department for evaluation of polyarthralgia. Patient is hemodynamically stable upon arrival, afebrile. Patient reports polyarthralgia but I do not see any tender or warm or swollen joints or evidence of chronically such, she does not have any joint stiffness or any crepitus. She has no ulnar deviation of any of her phalanges.. Differential diagnosis includes possible missed diagnosis of osteoarthritis versus viral illness versus osteoarthritis flare versus polyarthralgia etc. Initial workup will be conducted with hematologic labs inflammatory markers. Initial interventions include Solu-Medrol at patient request. Initial workup reviewed by me shows that her white count is normal with no shift within normal H&H, her CMP however is significant for an AST of 504 and ALT of 868 and alk phos of 78 a bilirubin of 0.2 CRP of 4.5.. Upon repeat evaluation I reinterviewed the patient regarding her symptoms and her background and her findings especially the transaminitis. Patient denies IV drug use she denies excessive use of acetaminophen she denies any [id number] supplement use she denies recent illness or current illness and she has no abdominal pain nausea vomiting or diarrhea.. Given this I have ordered acetaminophen level as well as a Sofia-Mariscal IgM and a cytomegalovirus IgM acute hepatitis panel and a right upper quadrant ultrasound. The right upper quadrant ultrasound read shows no obstructive hepatopathy gallstones biliary ductal dilatation does show fatty infiltration.. I then had an interactive discussion with Dr. Guzman of gastroenterology regarding patient VASQUEZ findings and recommendations. He recommended that as long as patient is hemodynamically stable he will see her in clinic as we have done all the initial workup that we can do. I have had an indirect discussion regarding the further workup for the patient and she will follow-up with gastroenterology as we have discussed. I will treat her polyarthritis with a short course of steroids and close follow-up with her PCP for recheck within 48 hours. <Chapo Braun MD - Last Filed: 11/10/24 07:44> Vital Signs: 11/09/24 14:14 11/09/24 14:15 11/09/24 14:30 Temperature 98.7 F Temperature Source Oral Pulse Rate 98 H 86 Pulse Rate [Right Radial] 98 H Respiratory Rate 18 Blood Pressure 133/92 H 129/95 H Blood Pressure [Right Arm] 133/92 H Blood Pressure Mean 103 Blood Pressure Mean [Right Arm] 105 Blood Pressure Source Blood Pressure Source [Right Arm] Automatic Cuff Blood Pressure Position 02 Sat by Pulse Oximetry 98 98 96 Oxygen Delivery Method Room Air Room Air Room Air 11/09/24 15:00 11/09/24 15:30 11/09/24 15:45 Temperature Temperature Source Pulse Rate 81 71 72 Pulse Rate [Right Radial] Respiratory Rate Blood Pressure 117/85 128/85 Blood Pressure [Right Arm] Blood Pressure Mean Blood Pressure Mean [Right Arm] Blood Pressure Source Blood Pressure Source [Right Arm] Blood Pressure Position 02 Sat by Pulse Oximetry 93 L 92 L 97 Oxygen Delivery Method Room Air Room Air Room Air 11/09/24 17:28 Temperature 98.2 F Temperature Source Oral Pulse Rate 78 Pulse Rate [Right Radial] Respiratory Rate 18 Blood Pressure 128/95 H Blood Pressure [Right Arm] Blood Pressure Mean Blood Pressure Mean [Right Arm] Blood Pressure Source Automatic Cuff Blood Pressure Source [Right Arm] Blood Pressure Position Sitting 02 Sat by Pulse Oximetry Oxygen Delivery Method Room Air Lab Data Lab Results 11/09/24 14:43: WBC 4.8, RBC 4.69, Hgb 14.0, Hct 40.2, MCV 85.7, MCH 29.9, MCHC 34.8, RDW 11.7, Plt Count 190, MPV 8.9, Neut % (Auto) 57.0, Lymph % (Auto) 24.9, [place] % (Auto) 10.4 H, Eos % (Auto) 7.3, Baso % (Auto) 0.2, Neut # (Auto) 2.7, Lymph # (Auto) 1.2, [place] # (Auto) 0.5, Eos # (Auto) 0.4, Baso # (Auto) 0.0, ESR 14, Sodium 137, Potassium 4.0, Chloride 104, Carbon Dioxide 27, Anion Gap 10.0, BUN 6 L, Creatinine 0.60, Estimated Creat Clear 130, Estimated GFR 103, Est GFR ( Amer) 125, Glucose 109 H, Calcium 8.8, Magnesium 1.7, Total Bilirubin 0.2, AST 504 H*, ALT 868 H*, Alkaline Phosphatase 78, C-Reactive Protein 4.5 H, Total Protein 6.5, Albumin 4.1, Globulin 2.4, Albumin/Globulin Ratio 1.7 11/09/24 14:45: Acetaminophen < 10 L Orders (Tests/Meds): ED MEDICATIONS Discontinued Medications Generic Name Dose Route Start Last Admin Trade Name Fremaryjane PRN Reason Stop Dose Admin Ketorolac Tromethamine 15 mg 11/09/24 14:18 11/09/24 14:49 Ketorolac 30mg/Ml Vial IV 11/09/24 14:19 15 mg ONCE ONE Administration Methylprednisolone Sodium Succinate 125 mg 11/09/24 14:18 11/09/24 14:33 Methylprednisolone Sod Succ 125mg Vial IV 11/09/24 14:19 125 mg ONCE ONE Administration ORDERS Category Date Time Status US RUQ [US abdomen limited] Stat Exams 11/09/24 15:42 Completed Acetaminophen Stat Lab 11/09/24 14:45 Completed CBC w/Auto Diff [Complete Blood Count Auto Diff] Stat Lab 11/09/24 14:43 Completed CMP [Comprehensive Metabolic Panel] Stat Lab 11/09/24 14:43 Completed CRP [C-Reactive Protein] Stat Lab 11/09/24 14:43 Completed Cytomegalovirus (CMV) Ab, IgM Stat Lab 11/09/24 17:19 Received EBV Ab VCA, IgM Stat Lab 11/09/24 17:19 Received ESR [Erythrocyte Sedimentation Rate] Stat Lab 11/09/24 14:43 Completed Hepatitis Panel Stat Lab 11/09/24 14:43 Received Magnesium Stat Lab 11/09/24 14:43 Completed Medical Decision Narrative: In summary patient is a 89-year-old female who presents to the emergency department for evaluation of polyarthralgia. Patient is hemodynamically stable upon arrival, afebrile. Patient reports polyarthralgia but I do not see any tender or warm or swollen joints or evidence of chronically such, she does not have any joint stiffness or any crepitus. She has no ulnar deviation of any of her phalanges.. Differential diagnosis includes possible missed diagnosis of osteoarthritis versus viral illness versus osteoarthritis flare versus polyarthralgia etc. Initial workup will be conducted with hematologic labs inflammatory markers. Initial interventions include Solu-Medrol at patient request. Initial workup reviewed by me shows that her white count is normal with no shift within normal H&H, her CMP however is significant for an AST of 504 and ALT of 868 and alk phos of 78 a bilirubin of 0.2 CRP of 4.5.. Upon repeat evaluation I reinterviewed the patient regarding her symptoms and her background and her findings especially the transaminitis. Patient denies IV drug use she denies excessive use of acetaminophen she denies any [id number] supplement use she denies recent illness or current illness and she has no abdominal pain nausea vomiting or diarrhea.. Given this I have ordered acetaminophen level as well as a Sofia-Mariscal IgM and a cytomegalovirus IgM acute hepatitis panel and a right upper quadrant ultrasound. The right upper quadrant ultrasound read shows no obstructive hepatopathy gallstones biliary ductal dilatation does show fatty infiltration.. I then had an interactive discussion with Dr. Guzman of gastroenterology regarding patient VASQUEZ findings and recommendations. He recommended that as long as patient is hemodynamically stable he will see her in clinic as we have done all the initial workup that we can do. I have had an indirect discussion regarding the further workup for the patient and she will follow-up with gastroenterology as we have discussed. I will treat her polyarthritis with a short course of steroids and close follow-up with her PCP for recheck within 48 hours. I was consulted by the KATIE, and we discussed the complexity of the problems being addressed. I approved the treatment and management plan for this patient's care in the Emergency Department, thus performing a substantive portion of the medical decision making. Prior to completed workup and disposition, care handed off to oncoming physician. Chapo Braun MD <Shannan Bustillos, DO - Last Filed: 11/10/24 15:29> Vital Signs: 11/09/24 14:14 11/09/24 14:15 11/09/24 14:30 Temperature 98.7 F Temperature Source Oral Pulse Rate 98 H 86 Pulse Rate [Right Radial] 98 H Respiratory Rate 18 Blood Pressure 133/92 H 129/95 H Blood Pressure [Right Arm] 133/92 H Blood Pressure Mean 103 Blood Pressure Mean [Right Arm] 105 Blood Pressure Source Blood Pressure Source [Right Arm] Automatic Cuff Blood Pressure Position 02 Sat by Pulse Oximetry 98 98 96 Oxygen Delivery Method Room Air Room Air Room Air 11/09/24 15:00 11/09/24 15:30 11/09/24 15:45 Temperature Temperature Source Pulse Rate 81 71 72 Pulse Rate [Right Radial] Respiratory Rate Blood Pressure 117/85 128/85 Blood Pressure [Right Arm] Blood Pressure Mean Blood Pressure Mean [Right Arm] Blood Pressure Source Blood Pressure Source [Right Arm] Blood Pressure Position 02 Sat by Pulse Oximetry 93 L 92 L 97 Oxygen Delivery Method Room Air Room Air Room Air 11/09/24 17:28 Temperature 98.2 F Temperature Source Oral Pulse Rate 78 Pulse Rate [Right Radial] Respiratory Rate 18 Blood Pressure 128/95 H Blood Pressure [Right Arm] Blood Pressure Mean Blood Pressure Mean [Right Arm] Blood Pressure Source Automatic Cuff Blood Pressure Source [Right Arm] Blood Pressure Position Sitting 02 Sat by Pulse Oximetry Oxygen Delivery Method Room Air Lab Data Lab Results 11/09/24 14:43: WBC 4.8, RBC 4.69, Hgb 14.0, Hct 40.2, MCV 85.7, MCH 29.9, MCHC 34.8, RDW 11.7, Plt Count 190, MPV 8.9, Neut % (Auto) 57.0, Lymph % (Auto) 24.9, [place] % (Auto) 10.4 H, Eos % (Auto) 7.3, Baso % (Auto) 0.2, Neut # (Auto) 2.7, Lymph # (Auto) 1.2, [place] # (Auto) 0.5, Eos # (Auto) 0.4, Baso # (Auto) 0.0, ESR 14, Sodium 137, Potassium 4.0, Chloride 104, Carbon Dioxide 27, Anion Gap 10.0, BUN 6 L, Creatinine 0.60, Estimated Creat Clear 130, Estimated GFR 103, Est GFR ( Amer) 125, Glucose 109 H, Calcium 8.8, Magnesium 1.7, Total Bilirubin 0.2, AST 504 H*, ALT 868 H*, Alkaline Phosphatase 78, C-Reactive Protein 4.5 H, Total Protein 6.5, Albumin 4.1, Globulin 2.4, Albumin/Globulin Ratio 1.7 11/09/24 14:45: Acetaminophen < 10 L Orders (Tests/Meds): ED MEDICATIONS Discontinued Medications Generic Name Dose Route Start Last Admin Trade Name Freq PRN Reason Stop Dose Admin Ketorolac Tromethamine 15 mg 11/09/24 14:18 11/09/24 14:49 Ketorolac 30mg/Ml Vial IV 11/09/24 14:19 15 mg ONCE ONE Administration Methylprednisolone Sodium Succinate 125 mg 11/09/24 14:18 11/09/24 14:33 Methylprednisolone Sod Succ 125mg Vial IV 11/09/24 14:19 125 mg ONCE ONE Administration ORDERS Category Date Time Status US RUQ [US abdomen limited] Stat Exams 11/09/24 15:42 Completed Acetaminophen Stat Lab 11/09/24 14:45 Completed CBC w/Auto Diff [Complete Blood Count Auto Diff] Stat Lab 11/09/24 14:43 Completed CMP [Comprehensive Metabolic Panel] Stat Lab 11/09/24 14:43 Completed CRP [C-Reactive Protein] Stat Lab 11/09/24 14:43 Completed Cytomegalovirus (CMV) Ab, IgM Stat Lab 11/09/24 17:19 Received EBV Ab VCA, IgM Stat Lab 11/09/24 17:19 Received ESR [Erythrocyte Sedimentation Rate] Stat Lab 11/09/24 14:43 Completed Hepatitis Panel Stat Lab 11/09/24 14:43 Received Magnesium Stat Lab 11/09/24 14:43 Completed Medical Decision Narrative: In summary patient is a 89-year-old female who presents to the emergency department for evaluation of polyarthralgia. Patient is hemodynamically stable upon arrival, afebrile. Patient reports polyarthralgia but I do not see any tender or warm or swollen joints or evidence of chronically such, she does not have any joint stiffness or any crepitus. She has no ulnar deviation of any of her phalanges.. Differential diagnosis includes possible missed diagnosis of osteoarthritis versus viral illness versus osteoarthritis flare versus polyarthralgia etc. Initial workup will be conducted with hematologic labs inflammatory markers. Initial interventions include Solu-Medrol at patient request. Initial workup reviewed by me shows that her white count is normal with no shift within normal H&H, her CMP however is significant for an AST of 504 and ALT of 868 and alk phos of 78 a bilirubin of 0.2 CRP of 4.5.. Upon repeat evaluation I reinterviewed the patient regarding her symptoms and her background and her findings especially the transaminitis. Patient denies IV drug use she denies excessive use of acetaminophen she denies any [id number] supplement use she denies recent illness or current illness and she has no abdominal pain nausea vomiting or diarrhea.. Given this I have ordered acetaminophen level as well as a Sofia-Mariscal IgM and a cytomegalovirus IgM acute hepatitis panel and a right upper quadrant ultrasound. The right upper quadrant ultrasound read shows no obstructive hepatopathy gallstones biliary ductal dilatation does show fatty infiltration.. I then had an interactive discussion with Dr. Guzman of gastroenterology regarding patient VASQUEZ findings and recommendations. He recommended that as long as patient is hemodynamically stable he will see her in clinic as we have done all the initial workup that we can do. I have had an indirect discussion regarding the further workup for the patient and she will follow-up with gastroenterology as we have discussed. I will treat her polyarthritis with a short course of steroids and close follow-up with her PCP for recheck within 48 hours. I was consulted by the KATIE, and we discussed the complexity of the problems being addressed. I approved the treatment and management plan for this patient's care in the Emergency Department, thus performing a substantive portion of the medical decision making. Prior to completed workup and disposition, care handed off to oncoming physician. MD Shannan Weber DO: I assumed care of the patient at 1500 at time of signout of previous provider. I was consulted by the KATIE, and we discussed the complexity of the problems being addressed. I approved the treatment and management plan for this patient's care in the emergency department, thus performing a substantive portion of the medical decision making. Shannan Bustillos DO Critical Care <AIDEE Myers - Last Filed: 11/09/24 21:48> Critical Care Time Critical Care Time: Yes Attestation: On 11/09/24, the high probability of a clinically significant, sudden or life threatening deterioration of the following system: Gastrointestinal, hepatic; required my full and direct attention, intervention and personal management. The time I documented below is in addition to time spent performing reported procedures but includes the following listed in this critical care notation. Total Time Total Critical Care Time: 30
[2024-11-09] MEDS: METHYLPREDNISOLONE SOD SUCC 125MG VIAL 125 MG IV (14:33)
[2024-11-09] MEDS: KETOROLAC 30MG/ML VIAL 15 MG IV (14:49)
[2024-11-09 15:06] LABS: Basophils % 0.2 % (0.1-2.0); Eosinophils # 0.4 K/mm3 (0.0-0.4); Eosinophils % 7.3 % (0.1-12.0); Hematocrit 40.2 % (37.0-47.0); Lymphocytes # 1.2 K/mm3 (0.7-4.5); Lymphocytes % 24.9 % (10-50); Mean Corpuscular HGB Conc 34.8 g/dL (31.8-35.4); Mean Corpuscular Hemoglobin 29.9 pg (27.0-31.2); Mean Corpuscular Volume 85.7 fl (81-99); Mean Platelet Volume 8.9 fl (7.4-10.4); Monocytes # 0.5 K/mm3 (0.1-1.0); Monocytes % 10.4 % (1.7-9.3); Neutrophils # 2.7 K/mm3 (1.8-7.8); Platelet Count 190 K/mm3 (142-424); Red Blood Count 4.69 M/mm3 (4.20-5.40); Red Cell Distribution Width 11.7 % (11.5-17.5); White Blood Count 4.8 K/mm3 (4.8-10.8)
[2024-11-09 15:07] LABS: Albumin Level 4.1 g/dl (3.5-5.0); Albumin/Globulin Ratio 1.7 (1.1-1.8); Alkaline Phosphatase 78 U/L (38-126); Aspartate Amino Transferase 504 U/L (14-36); Bilirubin,Total 0.2 mg/dl (0.2-1.3); Blood Urea Nitrogen 6 mg/dl (7-17); Calcium 8.8 mg/dl (8.4-10.2); Carbon Dioxide 27 mmol/L (22.0-30.0); Chloride 104 mmol/L (98-107); Creatinine Clearance Estimated 130 mL/min (50-200); Estimated Glomerular Filt Rate 103 ml/min (>60); GFR (African American) 125 ML/MIN (>60); Globulin 2.4 g/dL (1.3-3.2); Glucose 109 mg/dl (74-100); Magnesium 1.7 mg/dl (1.6-2.3); Sodium 137 mmol/L (136-145); Total Protein,Serum 6.5 g/dl (6.3-8.2)
[2024-11-09 15:12] LABS: C-Reactive Protein 4.5 mg/L (0-4)
[2024-11-09 15:16] LABS: Alanine Aminotransferase 868 U/L (12-78)
--- NOTE | 2024-11-09 15:29 | PC.NURSE ---
1529 AST/ALT notified provider of abnormal levels.
--- NOTE | 2024-11-09 15:42 | US_ITS ---
FINAL REPORT CLINICAL HISTORY: new transaminitis COMPARISON: None FINDINGS: Sonographic images of the right upper quadrant were obtained. The pancreas is partially obscured. There is fatty infiltration of the liver. The liver is otherwise normal in size. The gallbladder appears normal without evidence of gallstones.There is no evidence of biliary ductal dilatation.The common duct measures 4mm. Limited images of the right kidney are unremarkable. IMPRESSION: Fatty infiltration of the liver without evidence of biliary obstruction. Reviewed, Interpreted and Dictated by Kenyetta Baugh MD Transcribed by Savannah Voss Authenticated and [facility]
--- NOTE | 2024-11-09 15:50 | PC.NURSE ---
1550: pt to US via wheelchair
[2024-11-09 16:17] LABS: Acetaminophen < 10 ug/ml (10-30)
[2024-11-09 16:22] LABS: Erythrocyte Sedimentation Rate 14 mm/hr (0-30)
[2024-11-11 07:12] LABS: HBsAg Screen Negative (Negative); HCV Ab Non Reactive (Non Reactive); Hep A Ab, IGM Negative (Negative); Hep B Core Ab, IgM Negative (Negative)
[2024-11-11 07:12] LABS: Cytomegalovirus (CMV) Ab, IgM <30.0 AU/mL (0.0-29.9)
[2024-11-11 15:19] LABS: EBV Ab VCA, IgM <36.0 U/mL (0.0-35.9)
== END 2024-11-09 17:29 | disposition home or self-care (01) ==
PROVIDERS: Emergency Medicine; Physician Assistant; Emergency Provider Emergency Medicine; PCP Nurse Practitioner Family
DX: M13.0 Polyarthritis, unspecified (principal); R74.01 Elevation of levels of liver transaminase levels; M25.50 Pain in unspecified joint
CPT/HCPCS: 76705; 80053; 80074; 80329; 83735; 85025; 85651; 86140; 86645; 86665; 96374; 96375; 99284; G0480; J1885; J2919

== ENCOUNTER 2024-11-19 08:42 | Outpatient (POV) | payer MEDICAID, SELFPAY ==
[2024-11-19 09:03] VITALS: BP 133/80; PULSE 95; RESP 16; O2SAT 98; BMI 27.3
--- NOTE | 2024-11-19 09:26 | A.OFFVIS_ITS ---
[facility] Disclaimer: The information contained in this section may have been updated after the patient was seen, as this information can be updated by other users. Medical History Endometriosis Inguinal hernia Depression Hypertension Hypothyroid Surgical History H/O laparoscopy H/O inguinal hernia repair History of section Family History Other Colon cancer Family history of cancer Family history of myocardial infarction Social History Smoking Status: Never smoker smoking status start date: 1 pack day years smoked: 30 quit status: considering quitting alcohol intake: never substance use type: denies use current occupational status: other Travel in the last 8 weeks: None household members: family housing: house marital status: single education level: college PM Subjective & Objective Subjective Subjective:: Patient is a pleasant 59 female who presents today for worsening pain. She rates her pain today a 7 out of 10. She does state that she did have an injury due to the snow where she ended up hitting her knee and felt like that may have aggravated her overall back symptoms. Patient did previously have bilateral SI injections on 10/12/2024 and she does state that that did help 85% and feels like it may still be helping some. She states that the pain she is having is very similar however she does state that she has been noticing more neck and mid back pain. She denies any recent imaging. Patient would go to core her chiropractor for imaging in the past however has not been recently due to illness. Patient is currently managed with meloxicam 15 mg daily from our office and tizanidine 4 mg at bedtime. She does state that she ended up stopping the meloxicam because it was causing some diarrhea. Patient states the tizanidine is doing well and she did just have a refill sent in yesterday. Her Mauro has been reviewed and is appropriate. Review of Systems: General: No recent weight changes, no fever, no sleep disturbances Respiratory: No cough, no shortness of air, no recurring pulmonary infections Cardiovascular/peripheral vascular: No chest pain, no palpitations, no edema, no shortness of breath Gastrointestinal: No new onset incontinence, normal bowel movements reported Genitourinary: No new onset incontinence Musculoskeletal: Low back pain, neck pain, mid back pain Psychiatric: [Normal mood/affect] Neurological: [Denies weakness in extremities], [denies balance issues] Pain at rest (0-10 scale): 7 Objective Objective:: Physical Exam: General: Alert and oriented x3, no acute distress, pleasant and cooperative Lungs: Respirations even and unlabored, symmetrical chest expansion Eyes: PERRL Musculoskeletal: Flexion and extension of lumbar [spine] somewhat guarded secondary to pain, point tenderness along bilateral SI joints Neurological: Speech clear, no gross sensory deficit Has patient had previous pain injection?: Yes Percent improvement in pain since last injection: 85% Conservative treatment options previously tried: Home exercise plan Length of treatment: Longer than 12 weeks Meds Home Medications and Allergies Home Medications ?Medication ?Instructions ?Recorded ?Confirmed ?Type triamcinolone acetonide 0.5 % 1 applic topical BID #15 grams 08/20/23 11/19/24 Rx topical cream terbinafine HCl 1 % topical cream 1 applic topical BID fungus #30 01/02/24 11/19/24 Rx grams fluticasone propionate 50 1 spray intranasal DAILY #16 grams 04/01/24 11/19/24 Rx mcg/actuation nasal spray,suspension (Flonase Allergy Relief) nicotine 21 mg/24 hr daily 1 patch transdermal DAILY #28 ea 05/20/24 11/19/24 Rx transdermal patch (Nicoderm CQ) ammonium lactate 12 % topical cream 1 applic topical BID dry skin, 07/26/24 11/19/24 Rx callus care #385 grams cefdinir 300 mg capsule 300 mg PO BID 7 days #14 caps 08/15/24 11/19/24 Rx phenazopyridine 100 mg tablet 100 mg PO Q8H 6 doses #14 tabs 08/15/24 11/19/24 Rx naproxen 500 mg tablet 500 mg PO BID #30 tabs 09/07/24 11/19/24 Rx prednisone 20 mg tablet 20 mg PO BID 5 days #10 tabs 09/07/24 11/19/24 Rx estradiol 0.01% (0.1 mg/gram) See Rx Instructions vaginal 09/13/24 11/19/24 Rx vaginal cream .COMPLEX #42.5 grams oxybutynin chloride 10 mg 10 mg PO DAILY #90 tabs 09/13/24 11/19/24 Rx tablet,extended release 24 hr albuterol sulfate 90 mcg/actuation 2 puff inhalation Q4-6H PRN 09/14/24 11/19/24 Rx aerosol inhaler (Ventolin HFA) shortness of breath or wheezing #8.5 grams montelukast 10 mg tablet 10 mg PO DAILY #90 tabs 09/14/24 11/19/24 Rx (Singulair) meloxicam 15 mg tablet 15 mg PO DAILY #30 tabs 09/20/24 11/19/24 Rx hydroxyzine pamoate 100 mg capsule 100 mg PO HS #30 caps 09/30/24 11/19/24 Rx spironolactone 25 mg tablet 25 mg PO DAILY chf #90 tabs 09/30/24 11/19/24 Rx tizanidine 4 mg tablet (Zanaflex) 4 mg PO HS #30 tabs 10/13/24 11/19/24 Rx dextroamphetamine-amphetamine 10 10 mg PO BID ADHD #60 tabs 10/18/24 11/19/24 Rx mg tablet (Adderall) levothyroxine 125 mcg capsule 125 mcg PO DAILY #3 caps 10/30/24 11/19/24 Rx levothyroxine 125 mcg tablet 125 mcg PO DAILY #90 tabs 10/30/24 11/19/24 Rx venlafaxine 150 mg 150 mg PO DAILY #3 caps 10/30/24 11/19/24 Rx capsule,extended release 24 hr venlafaxine 150 mg 150 mg PO DAILY Depression #90 caps 10/30/24 11/19/24 Rx capsule,extended release 24 hr venlafaxine 37.5 mg 37.5 mg PO DAILY #3 caps 10/30/24 11/19/24 Rx capsule,extended release 24 hr venlafaxine 37.5 mg 37.5 mg PO DAILY Depression #90 10/30/24 11/19/24 Rx capsule,extended release 24 hr caps (Effexor XR) cholecalciferol (vitamin D3) 1,250 1,250 mcg PO WEEKLY #14 caps 11/08/24 11/19/24 Rx mcg (50,000 unit) capsule lisinopril 20 mg tablet 20 mg PO DAILY High Blood Pressure 11/08/24 11/19/24 Rx #90 tabs prednisone 50 mg tablet 50 mg PO DAILY 5 days #5 tabs 11/09/24 11/19/24 Rx liothyronine 50 mcg tablet See Rx Instructions .Route 11/18/24 11/19/24 Rx .COMPLEX #90 tabs tizanidine 4 mg tablet (Zanaflex) 4 mg PO HS #30 tabs 11/18/24 11/19/24 Rx New Prescriptions to Start Prescriptions: Allergies Allergy/AdvReac Type Severity Reaction Status Date / Time No Known Allergies Allergy Verified 09/13/24 10:59 Assessment and Plan *Assessment and plan (1) Degenerative disc disease, lumbar: Status: Acute Category: Medical Code(s): M51.369 - Other intervertebral disc degeneration, lumbar region without mention of lumbar back pain or lower extremity pain (2) Bilateral sacroiliitis: Status: Acute Category: Medical Code(s): M46.1 - Sacroiliitis, not elsewhere classified (3) Degenerative disc disease, cervical: Status: Acute Category: Medical Code(s): M50.30 - Other cervical disc degeneration, unspecified cervical region Plan I did discuss with the patient due to her worsening pain in her neck and mid back and no recent imaging that it may be beneficial to take a look and have new x-rays ordered. Patient agrees with this plan of care. We did also discuss any history of heart or kidney issues. Patient denied any problems. She did make mention that she has a family history of osteoporosis and she is unsure what her current status is. I did discuss that I will order a DEXA scan for her to evaluate for osteoporosis. Patient was counseled that I can send in a prescription of ibuprofen 800 mg 3 times daily. Patient states she has had this in the the past and denies any stomach upset or diarrhea. Patient was counseled that she can just use this as needed and to make sure that she does not take any other NSAIDs while taking this medication. Patient agrees with this plan of care. Patient will return to clinic in 2 weeks following her x-ray and DEXA scan for results. Patient has been instructed to contact the clinic with any concerns before the next appointment. Dr. Bunn has reviewed this note and agrees with this plan of care. This note was dictated using voice recognition software and make contain errors or omissions. All injections are used with Lidocaine, Bupivacaine and Depo Medrol. Occasionally urine drug screen is needed to verify patient's compliance with our office pain contract. This is ordered based off specific treatments related to chronic pain with the potential to abuse certain medications.
== END 2024-11-19 23:59 | disposition home or self-care (01) ==
PROVIDERS: Visit Provider Nurse Practitioner Family
DX: M51.369 Other intervertebral disc degeneration, lumbar region without mention of lumbar back pain or lower extremity pain (principal); M46.1 Sacroiliitis, not elsewhere classified; M50.30 Other cervical disc degeneration, unspecified cervical region; Z79.899 Other long term (current) drug therapy
CPT/HCPCS: 99212; G0463

== ENCOUNTER 2025-01-05 13:58 | Outpatient (POV) | payer MEDICAID, SELFPAY ==
[2025-01-05 14:10] VITALS: BP 112/72; PULSE 110; RESP 16; O2SAT 97; BMI 29.0
--- NOTE | 2025-01-05 14:24 | A.OFFVIS_ITS ---
[facility] Disclaimer: The information contained in this section may have been updated after the patient was seen, as this information can be updated by other users. Medical History Endometriosis Inguinal hernia Depression Hypertension Hypothyroid Surgical History H/O laparoscopy H/O inguinal hernia repair History of section Family History Other Colon cancer Family history of cancer Family history of myocardial infarction Social History Smoking Status: Never smoker smoking status start date: 10/28 pack day years smoked: 30 quit status: considering quitting alcohol intake: never substance use type: denies use current occupational status: other Travel in the last 8 weeks: None household members: family housing: house marital status: single education level: college PM Subjective & Objective Subjective Subjective:: Patient is a pleasant 59-year-old female who presents today for worsening pain. She rates her pain today a 9 out of 10. Patient does state that she has had a fall from her last appointment. She states that she just felt like her legs give out due to weakness. She denies any significant injury or trauma. She does state that she feels like she is having a lot more worse pain in her low back and bilateral hips like what she had previously. Patient does state the pain is constant and is interfering with her ability perform activities of daily living such as cooking and cleaning. Patient is not interested in additional injection therapy as she did get significant improvement following her injections in September that provided 85% relief and lasted up until the last week or 2. Patient does state that she has not heard on her DEXA scan about getting this scheduled and that she never did get her x-ray. Patient states that the tizanidine 4 mg at bedtime did help along with ibuprofen 800 mg. She is requesting refills. Patient had previously gone to the chiropractor for 2 years however as time is gone on has not felt like it did as well. Patient is currently managed with meloxicam 15 mg daily as well from our office. She denies any side effects. Her Mauro has been reviewed and is appropriate. Patient's heart rate was a little elevated during today's visit. Review of Systems: General: No recent weight changes, no fever, no sleep disturbances Respiratory: No cough, no shortness of air, no recurring pulmonary infections Cardiovascular/peripheral vascular: No chest pain, no palpitations, no edema, no shortness of breath Gastrointestinal: No new onset incontinence, normal bowel movements reported Genitourinary: No new onset incontinence Musculoskeletal: Low back pain, bilateral hip pain Psychiatric: [Normal mood/affect] Neurological: [Denies weakness in extremities], [denies balance issues] Pain at rest (0-10 scale): 9 Objective Objective:: Physical Exam: General: Alert and oriented x3, no acute distress, pleasant and cooperative Lungs: Respirations even and unlabored, symmetrical chest expansion Eyes: PERRL Musculoskeletal: Flexion and extension of lumbar [spine] somewhat guarded secondary to pain, [antalgic gait noted] point tenderness along bilateral SIs with positive bilateral Denise's, Mulu's, Gaenslen's, compression and distraction exam Neurological: Speech clear, no gross sensory deficit Has patient had previous pain injection?: No Conservative treatment options previously tried: Home exercise plan Length of treatment: Longer than 12 weeks Meds Home Medications and Allergies Home Medications ?Medication ?Instructions ?Recorded ?Confirmed ?Type triamcinolone acetonide 0.5 % 1 applic topical BID #15 grams 08/20/23 01/05/25 Rx topical cream terbinafine HCl 1 % topical cream 1 applic topical BID fungus #30 01/02/24 01/05/25 Rx grams fluticasone propionate 50 1 spray intranasal DAILY #16 grams 04/01/24 01/05/25 Rx mcg/actuation nasal spray,suspension (Flonase Allergy Relief) nicotine 21 mg/24 hr daily 1 patch transdermal DAILY #28 ea 05/20/24 01/05/25 Rx transdermal patch (Nicoderm CQ) ammonium lactate 12 % topical cream 1 applic topical BID dry skin, 07/26/24 01/05/25 Rx callus care #385 grams cefdinir 300 mg capsule 300 mg PO BID 7 days #14 caps 08/15/24 01/05/25 Rx phenazopyridine 100 mg tablet 100 mg PO Q8H 6 doses #14 tabs 08/15/24 01/05/25 Rx naproxen 500 mg tablet 500 mg PO BID #30 tabs 11/12/24 03/12/25 Rx prednisone 20 mg tablet 20 mg PO BID 5 days #10 tabs 09/07/24 01/05/25 Rx estradiol 0.01% (0.1 mg/gram) See Rx Instructions vaginal 09/13/24 01/05/25 Rx vaginal cream .COMPLEX #42.5 grams oxybutynin chloride 10 mg 10 mg PO DAILY #90 tabs 09/13/24 01/05/25 Rx tablet,extended release 24 hr albuterol sulfate 90 mcg/actuation 2 puff inhalation Q4-6H PRN 09/14/24 01/05/25 Rx aerosol inhaler (Ventolin HFA) shortness of breath or wheezing #8.5 grams montelukast 10 mg tablet 10 mg PO DAILY #90 tabs 09/14/24 01/05/25 Rx (Singulair) meloxicam 15 mg tablet 15 mg PO DAILY #30 tabs 09/20/24 01/05/25 Rx hydroxyzine pamoate 100 mg capsule 100 mg PO HS #30 caps 09/30/24 01/05/25 Rx spironolactone 25 mg tablet 25 mg PO DAILY chf #90 tabs 09/30/24 01/05/25 Rx tizanidine 4 mg tablet (Zanaflex) 4 mg PO HS #30 tabs 10/13/24 01/05/25 Rx dextroamphetamine-amphetamine 10 10 mg PO BID ADHD #60 tabs 10/18/24 01/05/25 Rx mg tablet (Adderall) levothyroxine 125 mcg capsule 125 mcg PO DAILY #3 caps 10/30/24 01/05/25 Rx levothyroxine 125 mcg tablet 125 mcg PO DAILY #90 tabs 10/30/24 01/05/25 Rx venlafaxine 150 mg 150 mg PO DAILY #3 caps 10/30/24 01/05/25 Rx capsule,extended release 24 hr venlafaxine 150 mg 150 mg PO DAILY Depression #90 caps 10/30/24 01/05/25 Rx capsule,extended release 24 hr venlafaxine 37.5 mg 37.5 mg PO DAILY #3 caps 10/30/24 01/05/25 Rx capsule,extended release 24 hr venlafaxine 37.5 mg 37.5 mg PO DAILY Depression #90 10/30/24 01/05/25 Rx capsule,extended release 24 hr caps (Effexor XR) cholecalciferol (vitamin D3) 1,250 1,250 mcg PO WEEKLY #14 caps 11/08/24 01/05/25 Rx mcg (50,000 unit) capsule lisinopril 20 mg tablet 20 mg PO DAILY High Blood Pressure 11/08/24 01/05/25 Rx #90 tabs prednisone 50 mg tablet 50 mg PO DAILY 5 days #5 tabs 11/09/24 01/05/25 Rx liothyronine 50 mcg tablet See Rx Instructions .Route 11/18/24 01/05/25 Rx .COMPLEX #90 tabs ibuprofen 800 mg tablet See Rx Instructions .Route 01/05/25 01/05/25 Rx .COMPLEX #90 tabs tizanidine 2 mg tablet 2 mg PO QID #120 tabs 01/05/25 Rx tizanidine 4 mg tablet See Rx Instructions .Route 01/05/25 01/05/25 Rx .COMPLEX #30 tabs New Prescriptions to Start Prescriptions: tizanidine Shannan Hare Allergies Allergy/AdvReac Type Severity Reaction Status Date / Time No Known Allergies Allergy Verified 09/13/24 10:59 Assessment and Plan *Assessment and plan (1) Degenerative disc disease, lumbar: Status: Acute Category: Medical Code(s): M51.369 - Other intervertebral disc degeneration, lumbar region without mention of lumbar back pain or lower extremity pain (2) Bilateral sacroiliitis: Status: Acute Category: Medical Code(s): M46.1 - Sacroiliitis, not elsewhere classified Plan Patient is experiencing worsening pain along the low back and bilateral hips. They did have limited range of motion of the lumbar spine along with point tenderness along bilateral SI joints and a positive bilateral Denise's, Mulu's, Gaenslen's, compression and distraction exam. I did discuss with the patient that I do believe they would benefit from bilateral SI injections. Risk and benefits were discussed with the patient and they would like to proceed forward with this option. Patient has tried and failed conservative therapy including continued at home stretching exercise for longer than 12 weeks in between injections. Patient had her last SI injections back in September that did provide 85% relief and have lasted nearly 3 months. Patient has had the same pain going on for longer than 3 months. I did discuss with the patient that following her next SI injections if this again does provide significant relief that she may be a beneficial candidate of SI fusion in future. Risk and benefits were discussed with the patient and we will follow-up with her regarding this at a later date. I have counseled her that I do believe she would benefit from physical therapy and we will also put in a new order of the lumbar x-ray. Patient was also counseled that I would highly recommend her primary care order some updated labs including CBC, CMP, thyroid to review over her complaint of fatigue today. We will follow-up on her DEXA scan. I did also discuss with patient that I will change her tizanidine to 2 mg versus the 4 mg and make it where she can take this during the day and 2 tablets at bedtime. Patient agrees with this plan of care. Patient will be scheduled for bilateral SI injections under fluoroscopy. Patient has been instructed to contact the clinic with any concerns before the next appointment. Dr. Bunn has reviewed this note and agrees with this plan of care. This note was dictated using voice recognition software and make contain errors or omissions. All injections are used with Lidocaine or Bupivacaine and Depo Medrol.
== END 2025-01-05 23:59 | disposition home or self-care (01) ==
PROVIDERS: PCP Nurse Practitioner Family; Visit Provider Nurse Practitioner Family
DX: M51.369 Other intervertebral disc degeneration, lumbar region without mention of lumbar back pain or lower extremity pain (principal); M46.1 Sacroiliitis, not elsewhere classified; R29.898 Other symptoms and signs involving the musculoskeletal system; Z73.89 Other problems related to life management difficulty; Z79.899 Other long term (current) drug therapy
CPT/HCPCS: 99212; G0463

== ENCOUNTER 2025-01-14 11:31 | Outpatient (CLI) | payer MEDICAID, SELFPAY ==
[2025-01-14 20:16] LABS: Coronavirus 19, PCR Not Detected (NotDetected); Influenza A, PCR Not Detected (NotDetected); Influenza B, PCR Not Detected (NotDetected)
== END 2025-01-14 23:59 | disposition home or self-care (01) ==
LOC: LAB.DROPOF 01-17 11:32
PROVIDERS: PCP Nurse Practitioner Family; Visit Provider Student in an Organized Health Care Education/Training Program
DX: J32.9 Chronic sinusitis, unspecified (principal); Z20.822 Contact with and (suspected) exposure to COVID-19
CPT/HCPCS: 87636

== ENCOUNTER 2025-02-01 13:14 | Day surgery (SDC) | payer MEDICAID, SELFPAY ==
[2025-02-01 13:15] VITALS: BP 112/77; PULSE 108; RESP 18; TEMP 36.8; O2SAT 95; BMI 28.1
[2025-02-01 13:26] VITALS: BP 105/62; PULSE 87; RESP 18; O2SAT 95
[2025-02-01] MEDS: BUPIVACAINE 0.25% 10ML INJ 25 MG IJ (13:27)
[2025-02-01] MEDS: LIDOCAINE 1% 5ML PF VIAL 5 ML (13:27)
[2025-02-01 13:31] VITALS: BP 131/69; PULSE 87; RESP 17; O2SAT 96
--- NOTE | 2025-02-01 13:32 | P.PCN_ITS ---
Procedure Date: 02/01/25 Time: 13:20 Anesthesiologist:: Inocencio Lowe CRNA Complications:: None Pre-procedure Diagnosis:: Bilateral sacroiliitis Post-procedure Diagnosis:: Same. Indications for Procedure:: Patient very pleasant 59-year-old female who comes our clinic today for bilateral sacroiliac joint injection with cortisone and local anesthetic. Patient describes low lumbar back pain off the midline bilaterally. Bilateral posterior hip pain. Difficulty transitioning from sitting to standing. She rates her pain 7/10. Procedure Details:: Procedure: Bilateral sacroiliac joint injections under fluoroscopy Informed consent was obtained and the risks and benefits of the procedure were explained to the patient.~ The patient was taken to the procedure room and noninvasive monitors were placed including a noninvasive blood pressure cuff and pulse oximeter.~ The patient was placed prone on the procedure table. Both hips were cleansed using Betadine as a cleansing solution. C-arm fluoroscopy was used to view the right sacroiliac joint.~ The skin and subcutaneous tissues were anesthetized using lidocaine 1.5% and a 25-gauge needle.~ After this, a 22-gauge spinal needle was inserted under fluoroscopic guidance into the inferior aspect of the right sacroiliac joint.~ Omnipaque dye was injected and good spread was seen throughout the joint.~ After this, approximately 5 mL of bupivacaine, 0.25% and Depo-Medrol, 40 mg was incrementally injected into the right sacroiliac joint. We then moved to the left sacroiliac joint.~ The skin and subcutaneous tissues were anesthetized using lidocaine 1.5% and a 25-gauge needle.~ After this, a 22- gauge spinal needle was inserted under fluoroscopic guidance into the inferior aspect of the left sacroiliac joint.~ Omnipaque dye was injected and good spread was seen throughout the joint. After this, approximately 5 mL of bupivacaine, 0.25% and Depo-Medrol, 40 mg was incrementally injected into the left sacroiliac joint.~ The patient tolerated the procedure well with no complications. The patient was observed in the Pain Clinic and then was discharged home neurologically intact. Plan and Disposition:: Patient was discharged without incident.
== END 2025-02-01 13:31 | disposition home or self-care (01) ==
PROVIDERS: PCP Nurse Practitioner Family; Visit Provider Nurse Anesthetist, Certified Registered
DX: M46.1 Sacroiliitis, not elsewhere classified (principal)
CPT/HCPCS: 27096; G0260; J1010

== ENCOUNTER 2025-02-02 13:54 | Outpatient (CLI) | payer MEDICAID, SELFPAY ==
[2025-02-02 18:58] LABS: Alanine Aminotransferase 102 U/L (12-78); Albumin/Globulin Ratio 1.5 (1.1-1.8); Alkaline Phosphatase 78 U/L (38-126); Anion Gap 12.9 mEq/L (5-15); Aspartate Amino Transferase 46 U/L (14-36); Basophils % 0.1 % (0.1-2.0); Bilirubin,Total 0.5 mg/dl (0.2-1.3); Blood Urea Nitrogen 14 mg/dl (7-17); Calcium 9.4 mg/dl (8.4-10.2); Carbon Dioxide 28 mmol/L (22.0-30.0); Chloride 101 mmol/L (98-107); Chol/HDL Ratio 3.9 (1-3.5); Cholesterol 182 mg/dl (140-200); Eosinophils % 0.4 % (0.1-12.0); Estimated Glomerular Filt Rate 127 ml/min (>60); GFR (African American) 154 ML/MIN (>60); Globulin 2.7 g/dL (1.3-3.2); Glucose 124 mg/dl (74-100); HDL Cholesterol 47 mg/dl (40-60); Hematocrit 41.8 % (37.0-47.0); Hemoglobin 14.3 g/dL (12.2-16.2); Lymphocytes # 1.4 K/mm3 (0.7-4.5); Mean Corpuscular HGB Conc 34.2 g/dL (31.8-35.4); Mean Corpuscular Volume 87.8 fl (81-99); Mean Platelet Volume 10.1 fl (7.4-10.4); Monocytes # 0.5 K/mm3 (0.1-1.0); Monocytes % 6.6 % (1.7-9.3); Neutrophils # 6.2 K/mm3 (1.8-7.8); Neutrophils % 75.7 % (37.0-80.0); Nucleated Red Blood Cells # 0 10^3/uL; Nucleated Red Blood Cells % 0 %; Platelet Count 229 K/mm3 (142-424); Potassium 3.9 mmoL/L (3.5-5.1); Red Blood Count 4.76 M/mm3 (4.20-5.40); Red Cell Distribution Width 11.3 % (11.5-17.5); Red Cell Distribution Width-SD 36.2 fL; Sodium 138 mmol/L (136-145); Total Protein,Serum 6.7 g/dl (6.3-8.2); Triglycerides 89 mg/dl (30-150); VLDL Cholesterol 18 mg/dL (0-40); White Blood Count 8.2 K/mm3 (4.8-10.8)
[2025-02-02 19:09] LABS: Direct LDL Cholesterol 105.68 mg/dL (100-129)
[2025-02-02 19:29] LABS: Thyroid Stimulating Hormone < 0.02 uIU/mL (0.465-4.68)
== END 2025-02-02 23:59 | disposition home or self-care (01) ==
LOC: LAB.DROPOF 02-03 10:10
PROVIDERS: PCP Nurse Practitioner Family; Visit Provider Nurse Practitioner Family
DX: E03.8 Other specified hypothyroidism (principal); I10 Essential (primary) hypertension; Z68.29 Body mass index [BMI] 29.0-29.9, adult; E66.3 Overweight
CPT/HCPCS: 80053; 80061; 82306; 84443; 85025

== ENCOUNTER 2025-02-08 16:53 | Outpatient (CLI) | payer MEDICAID, SELFPAY ==
--- NOTE | 2025-02-08 | XR_ITS ---
PROCEDURE INFORMATION: Exam: XR Thoracic Spine Exam date and time: 02/08/2025 5:10 PM Age: 59 years old Clinical indication: Pain in thoracic spine TECHNIQUE: Imaging protocol: Radiologic exam of the thoracic spine. Views: 2 views. COMPARISON: CR XR THORACIC SPINE 2V 02/08/2025 5:10 PM FINDINGS: Bones/joints: There is no evidence of acute fracture.There is no evidence of malalignment or dislocation. Degenerative changes along the thoracic spine Soft tissues: Unremarkable. IMPRESSION: There is no evidence of acute fracture.There is no evidence of malalignment or dislocation.
--- NOTE | 2025-02-08 | XR_ITS ---
PROCEDURE INFORMATION: Exam: XR Cervical Spine Exam date and time: 02/08/2025 5:10 PM Age: 59 years old Clinical indication: Neck pain TECHNIQUE: Imaging protocol: Radiologic exam of the cervical spine. Views: 2 or 3 views. COMPARISON: MR CERVICAL SPINE WO/W CON 08/17/2024 3:05 PM FINDINGS: Bones/joints: No acute fracture of the cervical spine. No subluxation or dislocation of the cervical spine. Intervertebral disc space narrowing C5/C6 may represent degenerative disc disease.. Anterior osteophyte formation C3 through C6. Posterior osteophyte formation C3 through C6. Degenerative changes in the facets at multiple levels. Degenerative changes at C1/C2 Soft tissues: Unremarkable. IMPRESSION: 1. No acute fracture of the cervical spine. 2. No subluxation or dislocation of the cervical spine. 3. Intervertebral disc space narrowing C5/C6 may represent degenerative disc disease..
--- NOTE | 2025-02-08 17:07 | XR_ITS ---
PROCEDURE INFORMATION: Exam: XR Lumbosacral Spine Exam date and time: 02/08/2025 5:10 PM Age: 59 years old Clinical indication: Low back pain TECHNIQUE: Imaging protocol: Radiologic exam of the lumbosacral spine. Views: 2 or 3 views. COMPARISON: MR LUMBAR SPINE WO/W CON 08/17/2024 3:05 PM FINDINGS: Bones/joints: Anterolisthesis of L4 with respect to L5 and L5 with respect S1. There is no evidence of acute fracture.There is no evidence of malalignment or dislocation. Intervertebral disc spaces are narrowed at L5/S1 consistent with degenerative disc disease. Soft tissues: Unremarkable. IMPRESSION: 1. There is no evidence of acute fracture.There is no evidence of malalignment or dislocation. 2. Intervertebral disc spaces are narrowed at L5/S1 consistent with degenerative disc disease.
== END 2025-02-08 23:59 | disposition home or self-care (01) ==
LOC: RAD 16:57
PROVIDERS: PCP Nurse Practitioner Family; Visit Provider Nurse Practitioner Family
DX: M51.369 Other intervertebral disc degeneration, lumbar region without mention of lumbar back pain or lower extremity pain (principal); M46.1 Sacroiliitis, not elsewhere classified
CPT/HCPCS: 72040; 72070; 72100

== ENCOUNTER 2025-03-16 08:54 | Outpatient (POV) | payer MEDICAID, SELFPAY ==
--- NOTE | 2025-03-16 10:06 | EXP.PAIN.SOA ---
[facility] Disclaimer: The information contained in this section may have been updated after the patient was seen, as this information can be updated by other users. Medical History (Updated 03/16/25 @ 10:08 by Shannan Hare APRN) Breast cancer screening Endometriosis Inguinal hernia Depression Hypertension Hypothyroid Surgical History H/O laparoscopy H/O inguinal hernia repair History of section Family History Other Colon cancer Family history of cancer Family history of myocardial infarction Social History (Updated 02/02/25 @ 13:11 by Mell Rm MA) Smoking Status: Current every day smoker tobacco type: cigarettes smoking status start date: 10/28 pack day years smoked: 30 quit status: considering quitting alcohol intake: never substance use type: denies use current occupational status: other Travel in the last 8 weeks?: None household members: family housing: house marital status: single education level: college PM Subjective & Objective Subjective Subjective:: Patient is a pleasant 60-year-old female who presents today for imaging follow-up as well as SI injection follow-up on 02/01/2025. Today she rates her pain a 4 out of 10. Patient states most of that pain is related to her neck. Patient does state that her last SI injections did provide significant relief and feel like they are still working well. Patient states that she had about 100% relief initially from these injections then she did have a couple days that were a little bit more sore and then it kicked back again. Patient does feel like overall her neck pain is still very manageable. Patient is requesting refills of her muscle relaxer of tizanidine. Patient does state that the 4 mg did seem to do better versus the 2 mg. Her Mauro has been reviewed and is appropriate. Review of Systems: General: No recent weight changes, no fever, no sleep disturbances Respiratory: No cough, no shortness of air, no recurring pulmonary infections Cardiovascular/peripheral vascular: No chest pain, no palpitations, no edema, no shortness of breath Gastrointestinal: No new onset incontinence, normal bowel movements reported Genitourinary: No new onset incontinence Musculoskeletal: Neck pain Psychiatric: [Normal mood/affect] Neurological: [Denies weakness in extremities], [denies balance issues] Pain at rest (0-10 scale): 4 Objective Objective:: Physical Exam: General: Alert and oriented x3, no acute distress, pleasant and cooperative Lungs: Respirations even and unlabored, symmetrical chest expansion Eyes: PERRL Musculoskeletal: Flexion and extension of cervical [spine] somewhat guarded secondary to pain Neurological: Speech clear, no gross sensory deficit Has patient had previous pain injection?: Yes Percent improvement in pain since last injection: 100% Conservative treatment options previously tried: Home exercise plan Length of treatment: Longer than 12 weeks Meds Home Medications and Allergies Home Medications ?Medication ?Instructions ?Recorded ?Confirmed ?Type triamcinolone acetonide 0.5 % 1 applic topical BID #15 grams 08/20/23 02/02/25 Rx topical cream fluticasone propionate 50 1 spray intranasal DAILY #16 grams 04/01/24 02/02/25 Rx mcg/actuation nasal spray,suspension (Flonase Allergy Relief) ammonium lactate 12 % topical cream 1 applic topical BID dry skin, 07/26/24 02/02/25 Rx callus care #385 grams albuterol sulfate 90 mcg/actuation 2 puff inhalation Q4-6H PRN 09/14/24 02/02/25 Rx aerosol inhaler (Ventolin HFA) shortness of breath or wheezing #8.5 grams cholecalciferol (vitamin D3) 1,250 1,250 mcg PO WEEKLY #14 caps 11/08/24 02/02/25 Rx mcg (50,000 unit) capsule tizanidine 4 mg tablet See Rx Instructions .Route 01/05/25 02/02/25 Rx .COMPLEX #30 tabs estradiol 0.01% (0.1 mg/gram) See Rx Instructions vaginal 01/19/25 02/02/25 Rx vaginal cream .COMPLEX #42.5 grams oxybutynin chloride 10 mg 10 mg PO DAILY #90 tabs 01/19/25 02/02/25 Rx tablet,extended release 24 hr ibuprofen 800 mg tablet See Rx Instructions .Route 02/02/25 02/02/25 Rx .COMPLEX #90 tabs rosuvastatin 10 mg tablet 10 mg PO DAILY 02/02/25 02/02/25 History levothyroxine 125 mcg tablet 125 mcg PO DAILY #90 tabs 02/03/25 Rx liothyronine 50 mcg tablet See Rx Instructions .Route 02/03/25 Rx .COMPLEX #90 tabs lisinopril 20 mg tablet 20 mg PO DAILY High Blood Pressure 02/03/25 Rx #90 tabs spironolactone 25 mg tablet 25 mg PO DAILY chf #90 tabs 02/03/25 Rx venlafaxine 150 mg 150 mg PO DAILY #90 caps 02/03/25 Rx capsule,extended release 24 hr venlafaxine 37.5 mg 37.5 mg PO DAILY #90 caps 02/03/25 Rx capsule,extended release 24 hr tizanidine 2 mg tablet 2 mg PO QID #120 tabs 02/15/25 Rx dextroamphetamine-amphetamine 10 10 mg PO BID ADHD #60 tabs 03/09/25 Rx mg tablet (Adderall) New Prescriptions to Start Prescriptions: Allergies Allergy/AdvReac Type Severity Reaction Status Date / Time No Known Allergies Allergy Verified 02/02/25 13:00 Assessment and Plan *Assessment and plan (1) Neck pain: Status: Acute Category: Medical Code(s): M54.2 - Cervicalgia Plan Patient has had significant improvement following her SI injections and does not require any additional injection therapy at this time. Patient will return to clinic in 1 month for reevaluation of symptoms and plan of care. I will refill her tizanidine 4 mg. Patient has been instructed to contact the clinic with any concerns before the next appointment. Dr. Bunn has reviewed this note and agrees with this plan of care. This note was dictated using voice recognition software and make contain errors or omissions. All injections are used with Lidocaine, Bupivacaine and dexamethasone. Occasionally urine drug screen is needed to verify patient's compliance with our office pain contract. This is ordered based off specific treatments related to chronic pain with the potential to abuse certain medications.
[2025-03-16 11:06] VITALS: BP 102/72; PULSE 91; RESP 14; O2SAT 99; BMI 27.3
== END 2025-03-16 23:59 | disposition home or self-care (01) ==
PROVIDERS: PCP Nurse Practitioner Family; Visit Provider Nurse Practitioner Family
DX: M54.2 Cervicalgia (principal); F17.210 Nicotine dependence, cigarettes, uncomplicated; Z79.899 Other long term (current) drug therapy
CPT/HCPCS: 99212; G0463

== ENCOUNTER 2025-04-07 17:01 | Emergency (ER) | payer MEDICAID, SELFPAY ==
[2025-04-07 17:23] VITALS: BP 132/65; PULSE 89; RESP 16; TEMP 36.9; O2SAT 99; BMI 27.3
--- NOTE | 2025-04-07 17:34 | CT_ITS ---
PROCEDURE INFORMATION: Exam: CT Head Without Contrast Exam date and time: 04/07/2025 5:43 PM Age: 60 years old Clinical indication: Pain; Headache; Additional info: Severe headache x 3 days TECHNIQUE: Imaging protocol: Computed tomography of the head without contrast. Radiation optimization: All CT scans at this facility use at least one of these dose optimization techniques: automated exposure control; mA and/or kV adjustment per patient size (includes targeted exams where dose is matched to clinical indication); or iterative reconstruction. COMPARISON: No relevant prior studies available. FINDINGS: Brain: Normal. No hemorrhage. Unremarkable white matter. No mass effect. Cerebral ventricles: No ventriculomegaly. Paranasal sinuses: Visualized sinuses are unremarkable. No fluid levels. Mastoid air cells: Visualized mastoid air cells are well aerated. Bones: Unremarkable. No acute fracture. Soft tissues: Unremarkable. IMPRESSION: No acute intracranial abnormality.
--- OUTSIDE RECORDS SUMMARY | 2025-04-07 17:35 | XMS_ITS | Encounter Summary ---
Author Organization Healthcare Address [address] [place] [address] Care Team Providers Care Rocket Scientist Name Role Phone Mark Trevizo AARTI Primary Care Provider [phone] Encounter Details Date Type Department Care Team (Late st Contact Info) Description 02/24/2025 Telephone [place] [facility] [address] [place] [address] Justin Dominique MD [address] [place] [address] Social History Tobacco Use Types Packs/Day Years Used Date Smoking Tobacco: Never Assessed Comments Unknown Sex and Gender Information Value Date Recorded Sex Assigned at Not on file Legal Sex Female 1:40 PM EDT Gender Identity Not on file Sexual Orientation Not on file documented as of this encounter Miscellaneous Notes * Telephone Encounter - Tiffany Aguilar - 02/24/2025 4:23 PM EDT Patient Phone Message Reason for Call: Pt calling back for scheduling Best contact number and optimal time of day to reach caller: Pt [phone] Note: Please do not reply to this message. Follow-up communication and further actions as a result of this message need to be communicated with the patient directly, if the patient is not active onMyChart. If the patient is active on MyChart, they will receive notification of the communication/outcome via MyChart. * Telephone Encounter - Loretta Lizama - 02/24/2025 1:57 PM EDT Patient Phone Message Reason for Call: Pt is calling to reschedule an appointment she missed in Dec please advise Best contact number and optimal time of day to reach caller: [phone] Note: Please do not reply to this message. Follow-up communication and further actions as a result of this message need to be communicated with the patient directly, if the patient is not active onMyChart. If the patient is active on MyChart, they will receive notification of the communication/outcome via [employer]. documented in this encounter Plan of Treatment Not on file documented as of this encounter Visit Diagnoses Not on filedocumented in this encounter Care Teams Rocket Scientist Relationship Specialty Start Date End Date Mark Trevizo APRN [address] [place] [address] PCP - General 09/17/24 documented as of this encounter
--- OUTSIDE RECORDS SUMMARY | 2025-04-07 17:35 | XMS_ITS | Patient Health Record ---
Author Organization [facility] Address [address] [place] [address] Care Team Providers Care Diabetic Educator Name Role Phone DIAZ CAMILO Primary Care Provider ERICKA DUBOSE [phone] Allergies Allergen (clinical drug ingredient) Drug/Non Drug Allergy documented on EMR Reaction Allergy Type Onset Date Status Ciprofloxacin Unknown Drug Allergy Act karen Sulfacet-R Unknown Drug Allergy Active Seasonal IC Unknown Drug Allergy Activ e Reason For Referral No Information Medications Medication SIG (Take, Route, Frequency, Duration) Notes Start Date End Date Status Nystatin 749963 UNIT/ML 4 ml Mouth/Throa t Four times a day for 30 day(s) Active Augmentin 500-125 MG 1 tablet Orally bid for 7 days 02/10/2020 Active Ibuprofen 800 MG 1 tablet with food o r milk as needed Orally every 8 hrs for 8 days 05/24/2020 Active Effexor Active Levothyroxine Sodium 150 MCG 1 tablet in the morning on an empty stomach Orally Once a day for 90 days Active Multivitamin Active Lisinopril 20 MG 1 tablet Orally Once a day for 90 days Active Levothyroxine Sodium Active Effexor XR 150 MG 1 capsule with food Orally Once a day for 90 days Active Lisinopril Active Fluticasone Propionate 50 MCG/ACT USE ONE SPRAY IN EACH NOSTRIL ONE TIME DAILY for 60 Active hydrOXYzine HCl 50 MG 1 tablet as needed Orally every 8 hrs for 30 day(s) Active Amoxicillin 500 MG 1 capsule Orally jessy ry 8 hrs for 10 day(s) 04/26/2020 Active Flonase 50 MCG/ACT 1 spray in each nost ril Nasally Once a day for 30 day(s) 02/10/2020 Active Loratadine 10 MG 1 tablet Orally Once a day for 30 day(s) Active Triamcinolone Acetonide 0.1 % 1 application to oral lesion Mouth/Throat Twice a day for 30 day(s) 03/06/2020 Active Social History Tobacco Use: Social History Observation Description Date Details (start date - stop date) Current Smoker NA - NA Tobacco Use/Smoking Question Answer Notes Are you a current smoker Alcohol Screen (Audit-C) Question Answer Notes Did you have a drink containing alcohol in the p ast year? No Points 0 Interpretation Negative Problems Problem Type SNOMED Code ICD Code Onset Dates Problem Status W/U Status Risk Notes Problem Anxiety (37919023) Anxiety (F41.9) Active confirmed Problem Seasonal allergy (238634010) Seasonal allergies (J30.2) Active confirmed Problem Obesity (663725882) Obesity (E66.9) Active confirmed Problem Hypertension (60484833) HTN (hypertension) (I10) Active confirmed Problem Hypothyroid (52433928) Hypothyroid (E03.9) Active confirmed Plan Of Treatment No Information Insurance Providers Payer Name Payer Address Payer Phone Subscriber Number Group Number Insured Name Patient Relationship to Insured Coverage Start Date Coverage End Date [employer] Advantage [address] [address] [place] [id number] CHRISSY BURNS Self - patient is the insured 0 [employer] [address] [address] [place] [address] [id number] CHRISSY BURNS Self - patient is the insured Medical (General) History Medical History History ICD Code ADHD ANXIETY depression HIGH BLOOD PRESSURE Mental disorder THYROID DISEASE/PROBLEMS SMOKER
--- OUTSIDE RECORDS SUMMARY | 2025-04-07 17:35 | XMS_ITS | Patient Health Record ---
Author Organization [facility] Address [address] [place] [address] Care Team Providers Care Numerical Analysis Group Manager Name Role Phone Steve Ibarra PA-C Primary Care Provider Allergies Allergen (clinical drug ingredient) Drug/Non Drug Allergy documented on EMR Reaction Allergy Type Onset Date Status sulfamethoxazole / trimethoprim Sulfamethoxazole- Trimethoprim Tongue/lip swelling Drug Allergy Active Reason For Referral No Information Medications Medication SIG (Take, Route, Frequency, Duration) Notes Start Date End Date Status KlonoPIN 1 MG 1 tablet at bedtime Orally Once a day Active Naproxen 500 mg 1 tablet with food o r milk as needed Orally every 12 hrs for 15 days 12/01/2017 Active Gabapentin 300 MG 1 capsule Orally Thr ee times a day 11/26/2017 Not-Taking Lisinopril 20 MG 1 cap(s) Orally daily Active Levothyroxine Sodium 50 MCG 1 tablet on an empty stomach in the morning Orally Once a day for 30 day(s) Active FLUoxetine HCl 20 MG 1 capsule in the morning Orally Once a day for 30 days 12/10/2017 Active Terbinafine HCl pulse therapy 250 MG 2 tablets Orally Once a day for one week each month for three months 12/26/2017 Active Social History Tobacco Use: Social History Observation Description Date Details (start date - stop date) Current Smoker NA - NA TOBACCO Question Answer Notes STATUS Current smoker < 1/2 ppd Problems Problem Type SNOMED Code ICD Code Onset Dates Problem Status W/U Status Risk Notes Problem Low back pain (238019085) Low back pain (M54.5) Active confirmed Facet disease Problem Allergic rhinitis (36091624) Allergic rhinitis, unspecified (J30.9) Active confirmed Problem Anxiety state (613748283) -Anxiety disorder (F41.9) Active confirmed Problem Recurrent major depression (12071131) -Depression (F33.9) Active confirmed Problem Insomnia (318246129) -Insomnia (G47.00) Active confirmed Problem Hypothyroidism (83654444) Hypothyroidism (E03.9) Active confirmed Needs labs checked Problem Hypertension (83959130) Hypertension (I10) Active confirmed Slightly elevated today, off of medication s. Problem Sleep disorder (32117748) Sleep disorder (G47.9) Active confirmed Off medication , needs refills Problem Major depressive disorder (227782414) MDD (major depressive disorder) (F32.9) Active confirmed Plan Of Treatment No Information Medical (General) History Medical History History ICD Code Depression Hypothyroid Sleep disorder HTN Surgical History Surgery Date(Month/Year) Cesarian x 2 Uterine Ablation
--- OUTSIDE RECORDS SUMMARY | 2025-04-07 17:35 | XMS_ITS | Clinical Summary ---
Author Organization Healthcare Address [address] [place] [address] Care Team Providers Care Camera Operator Name Role Phone Mark Trevizo APRN Primary Care Provider Encounters Date Type Department Care Team Description 02/24/2025 Telephone [place] [facility] [address] [place] [address] Justin Dominique MD from Last 3 Months Social History Tobacco Use Types Packs/Day Years Used Date Smoking Tobacco: Never Assessed Comments Unknown Sex and Gender Information Value Date Recorded Sex Assigned at Not on file Legal Sex Female 1:40 PM EDT Gender Identity Not on file Sexual Orientation Not on file Plan of Treatment Health Maintenance Due Date Last Done Comments [facility]-Depression Screening 1967 [facility]-HIV Screening 1967 [facility]-Hepatitis C Screening 1967 [facility]-Infant/Child/Adol SDOH Screenings 1967 [facility]- SDOH Screenings 1985 [facility]-Adult SDOH Screenings 1985 [facility]-DTaP,Tdap,and Td Vaccine s (1 - Tdap) 1986 [facility]-Hepatitis B Vaccines (1 of 3 - 19+ 3-dose series) 1986 [facility]-Pap Smear 02/23/1988 [facility]-Cervical Cancer Screening 1997 [facility]-HPV/Cotest 1997 CT Colonography 02/23/2012 Colonoscopy 02/23/2012 FIT-DNA 02/23/2012 FIT 02/23/2012 FOBT 02/23/2012 Sigmoidoscopy 02/23/2012 [facility]-Colorectal Cancer Screening 02/23/2012 [facility]-Breast Cancer Screening 2017 [facility]-Pneumococcal Vaccine: 50 + Years (1 of 1 - PCV) 2017 [facility]-Zoster Vaccines (1 of 2) 2017 [id number] Vaccine Completed 09/07/2024, 06/10/2023 [facility]-Influenza Vaccine Completed 09/07/2024 , 06/10/2023 HPV Vaccines Aged Out No longer eligi ble based on patient's age to complete this topic [facility]-HIB Vaccines Aged Out No longer e ligible based on patient's age to complete this topic [facility]-Hepatitis A Vaccines Aged Out No longer eligible based on patient's age to complete this topic [facility]-IPV Vaccines Aged Out No longer e ligible based on patient's age to complete this topic [facility]-Rotavirus Vaccines Aged Out No lo nger eligible based on patient's age to complete this topic Insurance Care Teams Camera Operator Relationship Specialty Start Date End Date Mark Trevizo APRN [address] [place] [address] PCP - General 09/17/24
[2025-04-07 18:04] LABS: Coronavirus 19, PCR Not Detected (NotDetected); Influenza A, PCR Not Detected (NotDetected); Influenza B, PCR Not Detected (NotDetected)
--- NOTE | 2025-04-07 18:13 | HMH.EDGENADL ---
Discharge Plan Disposition Patient Disposition: Home, Self-Care Condition: Good Prescriptions Prescriptions: New ondansetron 4 mg tablet,disintegrating 4 mg PO Q8H PRN (Reason: nausea and vomiting) Qty: 12 1RF No Action rosuvastatin 10 mg tablet 10 mg PO DAILY triamcinolone acetonide 0.5 % cream 1 applic topical BID Qty: 15 0RF ammonium lactate 12 % cream 1 applic topical BID Qty: 385 1RF fluticasone propionate [Flonase Allergy Relief] 50 mcg/actuation spray,suspension 1 spray intranasal DAILY Qty: 16 2RF Rx Instructions: administer into each nostril albuterol sulfate [Ventolin HFA] 90 mcg/actuation HFA aerosol inhaler 2 puff inhalation Q4-6H PRN (Reason: shortness of breath or wheezing) Qty: 8.5 2RF cholecalciferol (vitamin D3) 1,250 mcg (50,000 unit) capsule 1,250 mcg PO WEEKLY Qty: 14 2RF tizanidine 4 mg tablet See Rx Instructions .ROUTE .COMPLEX Qty: 30 0RF Dose Instruction: TAKE 1 TABLET BY MOUTH AT BEDTIME NIGHTLY Rx Instructions: TAKE 1 TABLET BY MOUTH AT BEDTIME NIGHTLY oxybutynin chloride 10 mg tablet extended release 24hr 10 mg PO DAILY Qty: 90 3RF estradiol 0.01 % (0.1 mg/gram) cream See Rx Instructions vaginal .COMPLEX Qty: 42.5 2RF Rx Instructions: Using finger technique daily for two weeks and then twice weekly vaginally; spironolactone 25 mg tablet 25 mg PO DAILY Qty: 90 2RF venlafaxine 150 mg capsule,extended release 24hr 150 mg PO DAILY Qty: 90 3RF venlafaxine 37.5 mg capsule,extended release 24hr 37.5 mg PO DAILY Qty: 90 3RF lisinopril 20 mg tablet 20 mg PO DAILY Qty: 90 3RF levothyroxine 125 mcg tablet 125 mcg PO DAILY Qty: 90 0RF liothyronine 50 mcg tablet See Rx Instructions .ROUTE .COMPLEX Qty: 90 3RF Dose Instruction: TAKE 1 TABLET BY MOUTH ONCE DAILY Rx Instructions: TAKE 1 TABLET BY MOUTH ONCE DAILY dextroamphetamine-amphetamine [Adderall] 10 mg tablet 10 mg PO BID Qty: 60 0RF Rx Instructions: administer doses at least 4-6 hours apart tizanidine 2 mg tablet 2 mg PO QID Qty: 120 0RF tizanidine [Zanaflex] 4 mg tablet 4 mg PO TID Qty: 90 0RF ibuprofen 800 mg tablet See Rx Instructions .ROUTE .COMPLEX Qty: 90 0RF Dose Instruction: TAKE 1 TABLET BY MOUTH THREE TIMES DAILY NEEDED FOR PAIN Rx Instructions: TAKE 1 TABLET BY MOUTH THREE TIMES DAILY NEEDED FOR PAIN Referrals Follow up/Referrals: Mark Trevizo APRN [Primary Care Provider, Family Practice] - See instructions Activity Restrictions/Add. Instructions Additional Instructions/Restrictions: You were evaluated in the emergency department today. At this time, your labs and imaging are reassuring. You are negative for COVID and flu, but it is possible you could have another viral syndrome. This also could be a migraine. Please make sure you drink plenty of fluids. Take Tylenol and ibuprofen as needed for pain. 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 Return to the emergency department for new or worsening symptoms. Follow-up closely with your primary care provider for reassessment. They can recheck your liver enzymes, which are slightly elevated today as we discussed. Clinical Impressions Clinical Impression: Headache, Nausea, Transaminitis Stand Alone Forms Stand Alone Forms: Work/School Release Instructions Patient Instructions: DI for Nausea -- Adult, DI for Headache Print Language Print Language: Lithuanian Discharge ED Provider: Shannan Bustillos General Adult HPI General Chief complaint: Nausea/Vomiting/Diarrhea Stated complaint: vomiting x3 days Time Seen by Provider: 04/07/25 17:17 Mode of Arrival: Ambulatory Source of Information: Patient Description of Symptoms (Recalled from ER Triage Doc. by RN): Patient states she has been having a headache and nausea x 3 days, vomited once this morning. Denies diarrhea. History of Present Illness HPI narrative: This patient is a 60-year-old female with a history of hypertension, hypothyroidism, COMFORT presenting to the emergency department for evaluation with concern for headache and nausea. Patient reports that she has felt bad for 3 days with bodyaches, headache, and nausea and thinks that she might have the flu. She notes that she is not had any fevers, sore throat, cough, congestion. No vision changes, numbness, tingling, or other concerns. No recent falls or injuries. She notes her biggest concerns at the headache will not go away Related Data Home Medications ?Medication ?Instructions ?Recorded ?Confirmed rosuvastatin 10 mg tablet 10 mg PO DAILY 02/02/25 03/16/25 Previous Rx's ?Medication ?Instructions ?Recorded triamcinolone acetonide 0.5 % 1 applic topical BID #15 grams 08/20/23 topical cream fluticasone propionate 50 1 spray intranasal DAILY #16 grams 04/01/24 mcg/actuation nasal spray,suspension (Flonase Allergy Relief) ammonium lactate 12 % topical cream 1 applic topical BID dry skin, 07/26/24 callus care #385 grams albuterol sulfate 90 mcg/actuation 2 puff inhalation Q4-6H PRN 09/14/24 aerosol inhaler (Ventolin HFA) shortness of breath or wheezing #8.5 grams cholecalciferol (vitamin D3) 1,250 1,250 mcg PO WEEKLY #14 caps 11/08/24 mcg (50,000 unit) capsule tizanidine 4 mg tablet See Rx Instructions .Route 01/05/25 .COMPLEX #30 tabs estradiol 0.01% (0.1 mg/gram) See Rx Instructions vaginal 01/19/25 vaginal cream .COMPLEX #42.5 grams oxybutynin chloride 10 mg 10 mg PO DAILY #90 tabs 01/19/25 tablet,extended release 24 hr levothyroxine 125 mcg tablet 125 mcg PO DAILY #90 tabs 02/03/25 liothyronine 50 mcg tablet See Rx Instructions .Route 02/03/25 .COMPLEX #90 tabs lisinopril 20 mg tablet 20 mg PO DAILY High Blood Pressure 02/03/25 #90 tabs spironolactone 25 mg tablet 25 mg PO DAILY chf #90 tabs 02/03/25 venlafaxine 150 mg 150 mg PO DAILY #90 caps 02/03/25 capsule,extended release 24 hr venlafaxine 37.5 mg 37.5 mg PO DAILY #90 caps 02/03/25 capsule,extended release 24 hr tizanidine 2 mg tablet 2 mg PO QID #120 tabs 02/15/25 dextroamphetamine-amphetamine 10 10 mg PO BID ADHD #60 tabs 03/09/25 mg tablet (Adderall) tizanidine 4 mg tablet (Zanaflex) 4 mg PO TID #90 tabs 03/16/25 ibuprofen 800 mg tablet See Rx Instructions .Route 04/01/25 .COMPLEX #90 tabs ondansetron 4 mg disintegrating 4 mg PO Q8H PRN nausea and 04/07/25 tablet vomiting #12 tabs Allergies Allergy/AdvReac Type Severity Reaction Status Date / Time No Known Allergies Allergy Verified 02/02/25 13:00 [facility] Disclaimer: The information contained in this section may have been updated after the patient was seen, as this information can be updated by other users. Medical History Breast cancer screening Endometriosis Inguinal hernia Depression Hypertension Hypothyroid Surgical History H/O laparoscopy H/O inguinal hernia repair History of section Family History Other Colon cancer Family history of cancer Family history of myocardial infarction Social History Smoking Status: Current every day smoker tobacco type: cigarettes smoking status start date: 12 pack day years smoked: 30 quit status: considering quitting alcohol intake: never substance use type: denies use current occupational status: other Travel in the last 8 weeks?: None household members: family housing: house marital status: single education level: college Have you lived/traveled outside [place] in past 30 days?: No Contact w/someone who lives/traveled outside US past 30 days?: No Exposure to someone with infectious disease in past 14 days?: No Do you have a fever (greater than 100.4 F or 38 C)?: No Have you tested positive for COVID-19?: No Exposed to someone with COVID-19 in past 14 days?: No Do you have a sore throat?: No Do you have a cough?: No Do you have any weakness?: No Do you have any diarrhea?: No Are you experiencing any unusual bleeding?: No Do you have any muscle aches/pain?: No Do you have any abdominal pain?: No Are you experiencing loss of taste or smell?: No Other Medical History Have you received the Flu Vaccine for this season: Yes Have you received the Pneumonia Vaccine: No ROS Obtained: Yes All systems reviewed & no additional complaints except as documented Physical Exam General General appearance: alert and in no apparent distress Head Head exam: atraumatic and normocephalic Eye Eye exam: Present normal appearance, PERRL and EOMI ENT ENT exam: Present normal exam, normal oropharynx, mucous membranes moist and normal external ear exam Neck Neck exam: Present normal inspection, full ROM and trachea midline; Absent tenderness Chest Chest inspection: Present normal inspection and symmetric chest wall rise; Absent tenderness Respiratory Respiratory exam: Present normal lung sounds bilaterally; Absent respiratory distress, wheezes, stridor or accessory muscle use Cardiovascular Cardiovascular exam: Present regular rate and normal rhythm Abdominal Exam Abdominal exam: Present soft; Absent distention, tenderness or guarding Extremities Exam Extremities exam: Present normal inspection, full ROM and normal capillary refill; Absent tenderness or edema Back Exam Back exam: Present normal inspection and full ROM; Absent tenderness Neurological Exam Neurological exam: Present alert, oriented X3, CN II-XII intact and normal gait; Absent motor sensory deficit Psychiatric Psychiatric exam: Present normal affect and normal mood Skin Skin exam: Present warm and dry Medical Decision Making Medical Records Medical records reviewed: Yes I reviewed the patient's medical records. Screening: Per USPSTF and CDC recommendations, given the prevalence of disease in our region, it is our hospital?s policy to screen for HIV and viral Hepatitis for all patients aged 18 and over and those with ongoing risk factors. Mauro Inquiry Pt receiving controlled substance: No Vital Signs: 04/07/25 17:23 Temperature 98.4 F Temperature Source Oral Pulse Rate [Left Radial] 89 Respiratory Rate 16 Blood Pressure [Left Arm] 132/65 Blood Pressure Mean [Left Arm] 87 Blood Pressure Source [Left Arm] Automatic Cuff Blood Pressure Position [Left Arm] Sitting 02 Sat by Pulse Oximetry 99 Oxygen Delivery Method Room Air Lab Data Lab results reviewed: Yes I reviewed the patient's lab results. Lab Results 04/07/25 17:50: WBC 4.6 L, RBC 4.44, Hgb 13.6, Hct 38.6, MCV 86.9, MCH 30.6, MCHC 35.2, RDW 11.2 L, Plt Count 192, MPV 9.8, Neut % (Auto) 58.6, Lymph % (Auto) 27.5, [place] % (Auto) 9.4 H, Eos % (Auto) 4.1, Baso % (Auto) 0.2, Neut # (Auto) 2.7, Lymph # (Auto) 1.3, [place] # (Auto) 0.4, Eos # (Auto) 0.2, Baso # (Auto) 0.0, Sodium 137, Potassium 3.3 L, Chloride 104, Carbon Dioxide 29, Anion Gap 7.3, BUN 5 L, Creatinine 0.60, Estimated Creat Clear 132, Estimated GFR 103, Est GFR ( Amer) 124, Glucose 141 H, Calcium 9.8, Total Bilirubin 0.6, AST 125 H, ALT 227 H, Alkaline Phosphatase 86, Total Protein 6.1 L, Albumin 3.6, Globulin 2.5, Albumin/Globulin Ratio 1.4, SARS-CoV-2 (PCR) Not detected, Influenza A Untype (PCR) Not detected, Influenza Type B (PCR) Not detected 04/07/25 17:50 04/07/25 17:50 Orders (Tests/Meds): ED MEDICATIONS Discontinued Medications Generic Name Dose Route Start Last Admin Trade Name Freq PRN Reason Stop Dose Admin Acetaminophen 1,000 mg 04/07/25 17:34 04/07/25 18:32 Acetaminophen 1,000mg/100ml Vial IV 04/07/25 17:35 1,000 mg ONCE ONE Administration Dexamethasone Sodium Phosphate 8 mg 04/07/25 17:35 04/07/25 18:32 Dexamethasone 4mg/Ml 1ml Vial IV 04/07/25 17:36 8 mg ONCE ONE Administration Lactated Ringer's 1,000 mls @ 999 mls/hr 04/07/25 17:34 04/07/25 18:32 Lactated Ringer's 1000 Ml Bag IV 04/07/25 18:34 999 mls/hr .Q1H1M ONE Administration Ketorolac Tromethamine 15 mg 04/07/25 17:34 04/07/25 18:32 Ketorolac 30mg/Ml Vial IV 04/07/25 17:35 15 mg ONCE ONE Administration Metoclopramide HCl 5 mg 04/07/25 17:34 04/07/25 18:32 Metoclopramide Hcl 10mg/2ml Vial IVP 04/07/25 17:35 5 mg ONCE ONE Administration ORDERS Category Date Time Status CT head/brain wo con Stat Cat Scan 04/07/25 17:34 Completed CBC w/Auto Diff [Complete Blood Count Auto Diff] Stat Lab 04/07/25 17:50 Completed CMP [Comprehensive Metabolic Panel] Stat Lab 04/07/25 17:50 Completed Rapid PCR Covid and Flu A/B Stat Lab 04/07/25 17:50 Completed Medical Decision Narrative: In summary, this patient is a 60-year-old female presenting to the Emergency Department for evaluation of headache and nausea for 3 days. Differential diagnoses considered include but are not limited to viral syndrome, migraine, dehydration, tension headache, intracranial hemorrhage, space-occupying lesion. Ruling out the most morbid conditions drove assessment. It should be noted patient's history includes hypertension, hypothyroidism which may not be at goal therapy. This complicates all aspects of care by increasing patient's risk for morbidity. On exam, the patient is well-appearing. She sitting upright in no acute distress and is neurologically intact with no fevers or meningismus. Workup included CT head without contrast, CBC, CMP, and viral swab. She was given a migraine cocktail of a bolus of IV fluids, IV dexamethasone, IV Toradol, IV acetaminophen, and IV Reglan.. I independently interpreted CT scan of the head prior to the radiologist read and noted no large space-occupying lesion, no intracranial hemorrhage. Please see their read for final interpretation. Labs were obtained that demonstrated reassuring CBC with only very mild leukopenia, could be viral suppression. On chemistry she has very mild hypokalemia and mild transaminitis. I advise that she follow-up closely outpatient with primary care for monitoring of these things.. On reassessment, patient had great improvement after administration of migraine cocktail. She is feeling a lot better. I feel she is appropriate for discharge home with close follow-up with PCP. Strict return precautions given. Critical Care Critical Care Time Critical Care Time: No
[2025-04-07 18:28] LABS: Basophils % 0.2 % (0.1-2.0); Eosinophils # 0.2 Kmm3 (0.0-0.4); Eosinophils % 4.1 % (0.1-12.0); Hematocrit 38.6 % (37.0-47.0); Hemoglobin 13.6 g/dL (12.2-16.2); Immature Granulocytes # 0.01 10^3uL; Immature Granulocytes % 0.2 %; Lymphocytes # 1.3 K/mm3 (0.7-4.5); Lymphocytes % 27.5 % (10-50); Mean Corpuscular HGB Conc 35.2 g/dL (31.8-35.4); Mean Corpuscular Hemoglobin 30.6 pg (27.0-31.2); Mean Corpuscular Volume 86.9 fl (81-99); Mean Platelet Volume 9.8 fl (7.4-10.4); Monocytes # 0.4 K/mm3 (0.1-1.0); Monocytes % 9.4 % (1.7-9.3); Neutrophils # 2.7 K/mm3 (1.8-7.8); Neutrophils % 58.6 % (37.0-80.0); Nucleated Red Blood Cells # 0 10^3/uL; Nucleated Red Blood Cells % 0 %; Platelet Count 192 K/mm3 (142-424); Red Blood Count 4.44 M/mm3 (4.20-5.40); Red Cell Distribution Width 11.2 % (11.5-17.5); Red Cell Distribution Width-SD 35.6 fL; White Blood Count 4.6 K/mm3 (4.8-10.8)
[2025-04-07] MEDS: DEXAMETHASONE 4MG/ML 1ML VIAL 8 MG IV (18:32)
[2025-04-07] MEDS: ACETAMINOPHEN 1,000MG/100ML VIAL 1000 MG IV (18:32)
[2025-04-07] MEDS: METOCLOPRAMIDE HCL 10MG/2ML VIAL 5 MG IVP (18:32)
[2025-04-07] MEDS: KETOROLAC 30MG/ML VIAL 15 MG IV (18:32)
[2025-04-07] MEDS: LACTATED RINGERS 1000ML 1,000 ML 999 ML IV (18:32)
[2025-04-07 18:34] LABS: Albumin Level 3.6 g/dl (3.5-5.0); Chloride 104 mmol/L (98-107); Potassium 3.3 mmoL/L (3.5-5.1); Sodium 137 mmol/L (136-145)
[2025-04-07 18:37] LABS: Alanine Aminotransferase 227 U/L (12-78); Albumin/Globulin Ratio 1.4 (1.1-1.8); Alkaline Phosphatase 86 U/L (38-126); Anion Gap 7.3 mEq/L (5-15); Aspartate Amino Transferase 125 U/L (14-36); Bilirubin,Total 0.6 mg/dl (0.2-1.3); Blood Urea Nitrogen 5 mg/dl (7-17); Calcium 9.8 mg/dl (8.4-10.2); Carbon Dioxide 29 mmol/L (22.0-30.0); Creatinine Clearance Estimated 132 mL/min (50-200); Estimated Glomerular Filt Rate 103 ml/min (>60); GFR (African American) 124 ML/MIN (>60); Globulin 2.5 g/dL (1.3-3.2); Glucose 141 mg/dl (74-100); Total Protein,Serum 6.1 g/dl (6.3-8.2)
--- NOTE | 2025-04-07 19:35 | PC.NURSE ---
Assessments charted per the one encounter this RN had with patient due to her discharge status
[2025-04-07 19:36] VITALS: BP 101/70; PULSE 69; RESP 14; TEMP 36.6; O2SAT 96
== END 2025-04-07 19:38 | disposition home or self-care (01) ==
PROVIDERS: Emergency Provider Emergency Medicine; PCP Nurse Practitioner Family
DX: R51.9 Headache, unspecified (principal); R11.2 Nausea with vomiting, unspecified; R74.01 Elevation of levels of liver transaminase levels; I10 Essential (primary) hypertension; F17.210 Nicotine dependence, cigarettes, uncomplicated
CPT/HCPCS: 70450; 80053; 85025; 87636; 96361; 96374; 96375; 99284; J0131; J1100; J1885; J2765; J7120

== ENCOUNTER 2025-07-17 21:24 | Emergency (ER) | payer BC, SELFPAY ==
[2025-07-17 21:29] VITALS: BP 128/87; PULSE 87; RESP 17; TEMP 37.1; O2SAT 98; BMI 25.0
--- OUTSIDE RECORDS SUMMARY | 2025-07-17 21:45 | XMS_ITS | Clinical Summary ---
Author Organization [facility] Address [address] [id number] Care Team Providers Care Med Dir Name Role Phone Mark Trevizo COUNTRY PRINTER APPRENTICE Primary Care Provider [phone] Social History Tobacco Use Types Packs/Day Years [...] [facility]-HIV Screening 1967 [facility]-Hepatitis C Screening 1967 [facility]-/Child/Adol SDOH Screenings 1967 [facility]- SDOH Screenings 1985 [...] 2017 [facility]-Zoster Vaccines (1 of 2) 2017 [facility]-Influenza Vaccine (#1) 06/27/202509/07, 06/10/2023 [id number] Vaccine Completed 09/07/2024, 06/10/2023 HPV Vaccines Aged Out No longer [...] patient's age to complete this topic Insurance [facility] MEDICAID Care Teams Med Dir Relationship Specialty Start Date End Date Mark Trevizo APRN [address] [place] [id number] PCP - General 09/17/24
--- NOTE | 2025-07-17 22:11 | ED_ITS ---
Discharge Plan Disposition Patient Disposition: Home, Self-Care Condition: Good Prescriptions Prescriptions: New amoxicillin-pot clavulanate 875-125 mg tablet 1 tab PO BID 7 Days Qty: 14 0RF oxycodone 5 mg tablet 5 mg PO DAILY Qty: 4 0RF No Action rosuvastatin 10 mg tablet 10 mg PO DAILY prednisone 10 mg tablet 10 mg PO DAILY PRN (Reason: pain) Qty: 20 0RF famotidine 20 mg tablet 20 mg PO DAILY Qty: 30 2RF ondansetron 4 mg tablet,disintegrating 4 mg PO Q8H PRN (Reason: nausea and vomiting) Qty: 30 0RF cholecalciferol (vitamin D3) 1,250 mcg (50,000 unit) capsule 1,250 mcg PO WEEKLY Qty: 14 2RF oxybutynin chloride 10 mg tablet extended release 24hr 10 mg PO DAILY Qty: 90 3RF estradiol 0.01 % (0.1 mg/gram) cream See Rx Instructions vaginal .COMPLEX Qty: 42.5 2RF Rx Instructions: Using finger technique daily for two weeks and then twice weekly vaginally; venlafaxine 150 mg capsule,extended release 24hr 150 mg PO DAILY Qty: 90 3RF venlafaxine 37.5 mg capsule,extended release 24hr 37.5 mg PO DAILY Qty: 90 3RF levothyroxine 125 mcg tablet 125 mcg PO DAILY Qty: 90 0RF liothyronine 50 mcg tablet See Rx Instructions .ROUTE .COMPLEX Qty: 90 3RF Dose Instruction: TAKE 1 TABLET BY MOUTH ONCE DAILY Rx Instructions: TAKE 1 TABLET BY MOUTH ONCE DAILY tizanidine 4 mg tablet See Rx Instructions .ROUTE .COMPLEX Qty: 90 2RF Dose Instruction: TAKE 1 TABLET BY MOUTH THREE TIMES DAILY Rx Instructions: TAKE 1 TABLET BY MOUTH THREE TIMES DAILY ibuprofen 800 mg tablet See Rx Instructions .ROUTE .COMPLEX Qty: 90 0RF Dose Instruction: TAKE 1 TABLET BY MOUTH THREE TIMES DAILY Rx Instructions: TAKE 1 TABLET BY MOUTH THREE TIMES DAILY ibuprofen 800 mg tablet See Rx Instructions .ROUTE .COMPLEX Qty: 90 0RF Dose Instruction: TAKE 1 TABLET BY MOUTH THREE TIMES DAILY NEEDED FOR PAIN Rx Instructions: TAKE 1 TABLET BY MOUTH THREE TIMES DAILY NEEDED FOR PAIN albuterol sulfate [Ventolin HFA] 90 mcg/actuation HFA aerosol inhaler 2 puff inhalation Q4-6H PRN (Reason: shortness of breath or wheezing) Qty: 8.5 2RF fluticasone propionate [Flonase Allergy Relief] 50 mcg/actuation spray,suspension 1 spray intranasal DAILY Qty: 16 2RF Rx Instructions: administer into each nostril dextroamphetamine-amphetamine [Adderall] 10 mg tablet 10 mg PO BID Qty: 60 0RF Rx Instructions: administer doses at least 4-6 hours apart lisinopril 20 mg tablet 20 mg PO DAILY Qty: 90 3RF Referrals Follow up/Referrals: Mark Trevizo APRN [Primary Care Provider, Family Practice] - See instructions Activity Restrictions/Add. Instructions Additional Instructions/Restrictions: Call your dentist tomorrow to let them know you are having increased pain. The antibiotics as prescribed. Take Tylenol and Motrin [id number] for the next 2 days. Take oxycodone only for breakthrough pain but do not take this if you are driving or at work. Clinical Impressions Clinical Impression: Pain, dental Print Language Print Language: Barbadian Discharge ED Provider: Mell Berman General Adult HPI General Chief complaint: Dental/Oral Stated complaint: upper and bottem tooth pain Time Seen by Provider: 07/17/25 22:11 Mode of Arrival: Ambulatory Description of Symptoms (Recalled from ER Triage Doc. by RN): Patient states she got 2 teeth removed , reports pain at sites. States she did not recieve pain medication from the dentist. States the pain became un bareable today. History of Present Illness HPI narrative: Patient is a 60-year-old female who presented to the emergency department with dental pain. Patient states that her teeth, 2 of them were removed on . Patient reports continued pain. Patient denies any drainage or facial swelling. Patient denies any inability to swallow. Patient denies any difficulties opening or closing her mouth. Patient states that she has not followed up with her dentist yet. Patient denies any fevers. Related Data Home Medications ?Medication ?Instructions ?Recorded ?Confirmed rosuvastatin 10 mg tablet 10 mg PO DAILY 02/02/2506/27 Previous Rx's ?Medication ?Instructions ?Recorded cholecalciferol (vitamin D3) 1,250 1,250 mcg PO WEEKLY #14 caps 11/08/24 mcg (50,000 unit) capsule estradiol 0.01% (0.1 mg/gram) See Rx Instructions vagi nal 01/19/25 vaginal cream .COMPLEX #42.5 grams oxybutynin chloride 10 mg 10 mg PO DAILY #90 tabs 12/26 04/20 tablet,extended release 24 hr levothyroxine 125 mcg tablet 125 mcg PO DAILY #90 tabs 02/03/25 liothyronine 50 mcg tablet See Rx Instructions .Route 02/03/25 .COMPLEX #90 tabs venlafaxine 150 mg 150 mg PO DAILY #90 caps 08/20 capsule,extended release 24 hr venlafaxine 37.5 mg 37.5 mg PO DAILY #90 caps capsule,extended release 24 hr famotidine 20 mg tablet 20 mg PO DAILY #30 tabs 03/28 02/18 ondansetron 4 mg disintegrating 4 mg PO Q8H PRN nausea and 04/19/25 tablet vomiting #30 tabs tizanidine 4 mg tablet See Rx Instructions .Route 0 05/09/25 .COMPLEX #90 tabs ibuprofen 800 mg tablet See Rx Instructions .Route 0 06/20/25 .COMPLEX #90 tabs prednisone 10 mg tablet 10 mg PO DAILY PRN pain #20 tabs 07/13/25 amoxicillin 875 mg-potassium 1 tab PO BID 7 days #14 t abs 07/17/25 clavulanate 125 mg tablet oxycodone 5 mg tablet 5 mg PO DAILY #4 tabs ibuprofen 800 mg tablet See Rx Instructions .Route 0 07/18/25 .COMPLEX #90 tabs albuterol sulfate 90 mcg/actuation 2 puff inhalation Q 4-6H PRN 07/19/25 aerosol inhaler (Ventolin HFA) shortness of breath or wheezing #8.5 grams dextroamphetamine-amphetamine 10 10 mg PO BID ADHD #60 tabs 07/19/25 mg tablet (Adderall) fluticasone propionate 50 1 spray intranasal DAILY #16 grams 07/19/25 mcg/actuation nasal spray,suspension (Flonase Allergy Relief) lisinopril 20 mg tablet 20 mg PO DAILY High Blood Pr essure 07/21/25 #90 tabs Allergies Allergy/AdvReac Type Severity Reaction Status Date / Time No Known Allergies Allergy Verified 07/13/25 11:24 [facility] Disclaimer: The information contained in this section may have been updated after the patien faustino was seen, as this information can be updated by other users. Medical History (Updated 07/17/25 @ 22:24 by Mell Berman DO) C. difficile colitis Breast cancer screening Endometriosis Inguinal hernia Depression Hypertension Hypothyroid Surgical History H/O laparoscopy H/O inguinal hernia repair History of section Family History Other Colon cancer Family history of cancer Family history of myocardial infarction Social History Smoking Status: Current every day smoker tobacco type: cigarettes smoking status start date: 1/2 pack day years smoked: 30 quit status: considering quitting alcohol intake: never substance use type: denies use current occupational status: other Travel in the last 8 weeks?: None household members: family housing: house marital status: single education level: college Other Medical History Have you received the Flu Vaccine for this season: Yes Have you received the Pneumonia Vaccine: No ROS Obtained: Yes All systems reviewed & no additional complaints except as documented and Yes Systems reviewed as appropriate & no additional complaints except as documented Physical Exam General General appearance: alert and in no apparent distress Head Head exam: atraumatic, normocephalic, normal inspection and other (teeth removed with no obvious pus or drainage, no facial swelling, no trismus no submandibular swelling) Eye Eye exam: Present normal appearance, PERRL and EOMI; Absent scleral icterus ENT ENT exam: Present normal exam and normal external ear exam Neck Neck exam: Present normal inspection and full ROM Chest Chest inspection: Present normal inspection and symmetric chest wall rise Respiratory Respiratory exam: Present normal lung sounds bilaterally; Absent respiratory distress or wheezes Cardiovascular Cardiovascular exam: Present regular rate, normal rhythm and normal heart sounds Abdominal Exam Abdominal exam: Present soft and distention; Absent tenderness, guarding or rebound Extremities Exam Extremities exam: Present normal inspection and full ROM Back Exam Back exam: Present normal inspection and full ROM Neurological Exam Neurological exam: Present alert and oriented X3 Psychiatric Psychiatric exam: Present normal affect and normal mood Skin Skin exam: Present warm and dry Medical Decision Making Medical Records Medical records reviewed: Yes I reviewed the patient's medical records. Screening: Per USPSTF and CDC recommendations, given the prevalence of disease in our region, it is our hospital?s policy to screen for HIV and viral Hepatitis for all patients aged 18 and over and those with ongoing risk factors. Mauro Inquiry Pt receiving controlled substance: No Vital Signs: 07/17/25 21:29 07/17/25 22:25 Temperature 98.8 F 97.9 F Temperature Source Oral Oral Pulse Rate 74 Pulse Rate [Right] 87 Respiratory Rate 17 16 Blood Pressure 130/72 Blood Pressure [Right Arm] 128/87 Blood Pressure Mean [Right Arm] 100 Blood Pressure Source Automatic Cuff Blood Pressure Source [Right Arm] Automatic Cuff Blood Pressure Position Sitting Blood Pressure Position [Right Arm] Sitting 02 Sat by Pulse Oximetry 98 Oxygen Delivery Method Room Air Room Air Lab Data Lab results reviewed: Yes I reviewed the patient's lab results. Orders (Tests/Meds): ED MEDICATIONS Discontinued Medications Generic Name Dose Route Start Last Admin Trade Name Yudi PRN Reason Stop Dose Admin Acetaminophen 1,000 mg 07/17/25 22:20 07/17/25 22:27 Acetaminophen 500mg Tab PO 07/17/25 22:21 1,000 mg ONCE ONE Administration Amoxicillin/Clavulanate Potassium 1 each 07/17/25 22:20 07/17/25 22:27 Amoxicillin/Clavulanate Potassium 875/125mg Tablet PO 07/17/25 22:21 1 each ONCE ONE Administration Ketorolac Tromethamine 30 mg 07/17/25 22:20 07/17/25 22:28 Ketorolac 30mg/Ml Vial IM 07/17/25 22:21 30 mg ONCE ONE Administration Medical Decision Narrative: Patient is a 60-year-old female who presented to the emergency department with dental pain. On arrival, patient hemodynamically stable with unremarkable vital signs. Differential includes but not limited to: Dental infection, dry socket, postoperative pain, Bunny's, amongst others. On exam, patient had no facial swelling, patient had no trismus, there is no submandibular swelling. Patient's tooth extraction site appeared well with no obvious drainage or pus. At this time, patient was sent with Augmentin and a short course of oxycodone for pain control. Patient was advised to call her dentist in the morning for follow-up. Patient was otherwise discharged home in stable condition, return precautions were discussed. Critical Care Critical Care Time Critical Care Time: No
[2025-07-17 22:25] VITALS: BP 130/72; PULSE 74; RESP 16; TEMP 36.6; O2SAT 98
[2025-07-17] MEDS: AMOXICILLIN/CLAVULANATE POTASSIUM 875/125MG TABLET 1 EACH PO (22:27)
[2025-07-17] MEDS: ACETAMINOPHEN 500MG TAB 1000 MG PO (22:27)
[2025-07-17] MEDS: KETOROLAC 30MG/ML VIAL 30 MG IM (22:28)
== END 2025-07-17 22:32 | disposition home or self-care (01) ==
PROVIDERS: Emergency Provider Student in an Organized Health Care Education/Training Program; PCP Nurse Practitioner Family
DX: K08.89 Other specified disorders of teeth and supporting structures (principal); F17.210 Nicotine dependence, cigarettes, uncomplicated
CPT/HCPCS: 96372; 99283; J1885

== ENCOUNTER 2025-09-28 08:30 | Outpatient (CLI) | payer BC, SELFPAY | END 2025-09-28 23:59 | LOC: LAB.DROPOF 09-30 08:31 | PROVIDERS: PCP Nurse Practitioner Family; Visit Provider Student in an Organized Health Care Education/Training Program | DX: N39.0 Urinary tract infection, site not specified (principal) | CPT/HCPCS: 87086 ==

== ENCOUNTER 2025-09-30 18:18 | Emergency (ER) | payer BC, SELFPAY ==
[2025-09-30] VITALS (7 sets, daily range): BP systolic 125–164; BP diastolic 73–131; PULSE 63–96; RESP 14–15; TEMP 36.5–36.9; O2SAT 94–97; BMI 26.6
--- NOTE | 2025-09-30 18:30 | ED_ITS ---
<Statement entered by Rigoberto Katz DO - 09/30/25 23:17> I was consulted by the KATIE, and we discussed the complexity of problems being addressed. I approved the treatment and management plan for this patient's care in the emergency department, thus performing a substantive portion of the medical decision making. Rigoberto Katz DO I independently evaluated the patient as well. The patient's presentation seems overall consistent with a COPD exacerbation in the setting of rhino/enterovirus. While the patient was in the emergency department we did obtain troponins that were overall nonischemic as well as an EKG that was personally interpreted by me and demonstrated normal sinus rhythm at a rate of 70 bpm, normal axis, no NH prolongation, narrow QRS, no QTc prolongation. No ST elevation or depression. No overt signs of ischemia or arrhythmia We did consider the possibility of viral pericarditis and myocarditis. Negative troponins do suggest against myocarditis, but we did evaluate for pericarditis with bedside POCUS assessment to look for pericardial effusion. No pericardial fusion was noted on this exam. EF is grossly normal. No evidence of right heart strain. Please see procedure note below for details. Patient was ultimately discharged in stable condition Limited cardiac ultrasound note Indication: Shortness of breath Identified cardiac views: [Cardiac parasternal long axis] [Cardiac parasternal short axis] [Cardiac apical four-chamber] [Cardiac subxiphoid] Findings: Cardiac activity: Present Gross wall motion: Normal Pericardial effusion: Absent Right heart strain: Absent Impression: Normal limited cardiac echo Images were saved to permanent archive This study was technically adequate CPT: 46463 This study was performed by me and I personally interpreted all images/videos. Based on my clinical judgment these images were adequate and did not necessitate further imaging. Discharge Plan Disposition Patient Disposition: Home, Self-Care Condition: Good Prescriptions Prescriptions: New azithromycin 500 mg tablet See Rx Instructions .ROUTE .COMPLEX Qty: 6 0RF Rx Instructions: For 250 mg dose pack: take 500 mg today (day 1), then 250 mg for 4 days (days 2-5) prednisone 20 mg tablet 40 mg PO DAILY 5 Days Qty: 10 0RF No Action rosuvastatin 10 mg tablet 10 mg PO DAILY prednisone 10 mg tablet 10 mg PO DAILY PRN (Reason: pain) Qty: 20 0RF amoxicillin-pot clavulanate 875-125 mg tablet 1 tab PO BID 7 Days Qty: 14 0RF guaifenesin [Mucinex] 1,200 mg tablet extended release 12hr 1,200 mg PO BID PRN (Reason: congestion) Qty: 20 0RF benzonatate 100 mg capsule 100 mg PO TID PRN (Reason: cough) Qty: 30 0RF ondansetron 4 mg tablet,disintegrating 4 mg PO Q8H PRN (Reason: nausea and vomiting) Qty: 30 0RF oxybutynin chloride 10 mg tablet extended release 24hr 10 mg PO DAILY Qty: 90 3RF estradiol 0.01 % (0.1 mg/gram) cream See Rx Instructions vaginal .COMPLEX Qty: 42.5 2RF Rx Instructions: Using finger technique daily for two weeks and then twice weekly vaginally; venlafaxine 150 mg capsule,extended release 24hr 150 mg PO DAILY Qty: 90 3RF venlafaxine 37.5 mg capsule,extended release 24hr 37.5 mg PO DAILY Qty: 90 3RF levothyroxine 125 mcg tablet 125 mcg PO DAILY Qty: 90 0RF liothyronine 50 mcg tablet See Rx Instructions .ROUTE .COMPLEX Qty: 90 3RF Dose Instruction: TAKE 1 TABLET BY MOUTH ONCE DAILY Rx Instructions: TAKE 1 TABLET BY MOUTH ONCE DAILY tizanidine 4 mg tablet See Rx Instructions .ROUTE .COMPLEX Qty: 90 2RF Dose Instruction: TAKE 1 TABLET BY MOUTH THREE TIMES DAILY Rx Instructions: TAKE 1 TABLET BY MOUTH THREE TIMES DAILY albuterol sulfate [Ventolin HFA] 90 mcg/actuation HFA aerosol inhaler 2 puff inhalation Q4-6H PRN (Reason: shortness of breath or wheezing) Qty: 8.5 2RF fluticasone propionate [Flonase Allergy Relief] 50 mcg/actuation spray,suspension 1 spray intranasal DAILY Qty: 16 2RF Rx Instructions: administer into each nostril lisinopril 20 mg tablet 20 mg PO DAILY Qty: 90 3RF ibuprofen 800 mg tablet See Rx Instructions .ROUTE .COMPLEX Qty: 90 0RF Dose Instruction: TAKE 1 TABLET BY MOUTH THREE TIMES DAILY NEEDED FOR PAIN Rx Instructions: TAKE 1 TABLET BY MOUTH THREE TIMES DAILY NEEDED FOR PAIN ibuprofen 800 mg tablet See Rx Instructions .ROUTE .COMPLEX Qty: 90 0RF Dose Instruction: TAKE 1 TABLET BY MOUTH THREE TIMES DAILY Rx Instructions: TAKE 1 TABLET BY MOUTH THREE TIMES DAILY dextroamphetamine-amphetamine [Adderall] 10 mg tablet 10 mg PO BID Qty: 60 0RF Rx Instructions: administer doses at least 4-6 hours apart famotidine 20 mg tablet See Rx Instructions .ROUTE .COMPLEX Qty: 90 0RF Dose Instruction: Take 1 tablet by mouth once daily Rx Instructions: Take 1 tablet by mouth once daily oxycodone 5 mg tablet 5 mg PO DAILY Qty: 4 0RF Referrals Follow up/Referrals: Mark Trveizo APRN [Primary Care Provider, Family Practice] - See instructions Activity Restrictions/Add. Instructions Additional Instructions/Restrictions: Please return to the emergency department with any worsening signs or symptoms. Please take your medication as prescribed, I would recommend utilizing [id number] cold and flu medications as needed for symptomatic relief. Please follow-up with your PCP and other providers in the upcoming days/weeks. Clinical Impressions Clinical Impression: COPD exacerbation, Rhinovirus Instructions Patient Instructions: DI for Chronic Obstructive Pulmonary Disease, DI for Acute Bronchitis, DI for Viral Syndrome Print Language Print Language: Malaysian Discharge ED Provider: Rigoberto Katz Adult HPI General Chief complaint: Upper Respiratory Infection Stated complaint: Congestion, prolapse causing urination Time Seen by Provider: 09/30/25 18:25 Mode of Arrival: Ambulatory Source of Information: Patient and Medical Record Limitations: No Limitations History of Present Illness HPI narrative: 60-year-old female presents to the emergency department with a 1.5-week history of productive cough, congestion, headache, sinus pressure , with some shortness of air, patient states when she coughs she leaks urine , does have history of stress urinary incontinence/overactive bladder on medication for this and has seen urology in consultation, as well as urgent care several times over the last few weeks, last urgent care visit was on 09/28/2025 where she was started on Augmentin, she has been utilizing [id number] cold and flu medications with little to no relief of her symptomatology, patient denies any chest pain, denies any recorded Tmax, admits to nausea no vomiting no abdominal pain no constipation no diarrhea, no dysuria, no hematuria melena hematochezia Metamucil hemoptysis, patient is a current everyday smoker, denies any alcohol or drug use, other past medical history is consistent with COMFORT, degenerative disc disease, hypertension, ADHD, hypothyroidism, hyperlipidemia, MONTRELL/MDD. Initial triage vitals unremarkable. Please note that above description of symptoms, in this electronic medical record under categorization of recalled from ER triage doctor by RN are reflective of an initial nursing assessment, however, is not reflective of my full history and physical exam that was personally taken and clarified. Consequentially, this preceding description of symptoms, which may include the patient's categorized chief complaint in the EMR, do not reflect my personal clinical impression, and the ultimate description of history of present illness and patient stated complaints should be deferred to this section of the note. Unless stated otherwise or congruent with this section of the note, additional signs, symptoms, or incongruence should be interpreted as inaccurate with my clinical impression. Onset (ago): week(s) Related Data Home Medications ?Medication ?Instructions ?Recorded ?Confirmed rosuvastatin 10 mg tablet 10 mg PO DAILY 02/02/2501/18 Previous Rx's ?Medication ?Instructions ?Recorded estradiol 0.01% (0.1 mg/gram) See Rx Instructions vagi nal 01/19/25 vaginal cream .COMPLEX #42.5 grams oxybutynin chloride 10 mg 10 mg PO DAILY #90 tabs 12/26 04/20 tablet,extended release 24 hr levothyroxine 125 mcg tablet 125 mcg PO DAILY #90 tabs 02/03/25 liothyronine 50 mcg tablet See Rx Instructions .Route 02/03/25 .COMPLEX #90 tabs venlafaxine 150 mg 150 mg PO DAILY #90 caps 08/20 capsule,extended release 24 hr venlafaxine 37.5 mg 37.5 mg PO DAILY #90 caps capsule,extended release 24 hr ondansetron 4 mg disintegrating 4 mg PO Q8H PRN nausea and 04/19/25 tablet vomiting #30 tabs tizanidine 4 mg tablet See Rx Instructions .Route 0 05/09/25 .COMPLEX #90 tabs prednisone 10 mg tablet 10 mg PO DAILY PRN pain #20 tabs 07/13/25 oxycodone 5 mg tablet 5 mg PO DAILY #4 tabs albuterol sulfate 90 mcg/actuation 2 puff inhalation Q 4-6H PRN 07/19/25 aerosol inhaler (Ventolin HFA) shortness of breath or wheezing #8.5 grams fluticasone propionate 50 1 spray intranasal DAILY #16 grams 09/23/25 mcg/actuation nasal spray,suspension (Flonase Allergy Relief) lisinopril 20 mg tablet 20 mg PO DAILY High Blood Pr essure 07/21/25 #90 tabs ibuprofen 800 mg tablet See Rx Instructions .Route 1 10/29/24 .COMPLEX #90 tabs dextroamphetamine-amphetamine 10 10 mg PO BID ADHD #60 tabs 08/31/25 mg tablet (Adderall) ibuprofen 800 mg tablet See Rx Instructions .Route 1 10/31/24 .COMPLEX #90 tabs famotidine 20 mg tablet See Rx Instructions .Route 1 11/06/24 .COMPLEX #90 tabs amoxicillin 875 mg-potassium 1 tab PO BID 7 days #14 t abs 09/27/25 clavulanate 125 mg tablet benzonatate 100 mg capsule 100 mg PO TID PRN cough #30 caps 09/27/25 guaifenesin 1,200 mg tablet, 1,200 mg PO BID PRN conge stion #20 09/27/25 extended release 12 hr (Mucinex) tabs azithromycin 500 mg tablet See Rx Instructions PO .COM PLEX #6 09/30/25 tabs prednisone 20 mg tablet 40 mg (2 x 20 mg) PO DAILY 5 days 09/30/25 #10 tabs Allergies Allergy/AdvReac Type Severity Reaction Status Date / Time No Known Allergies Allergy Verified 09/28/25 17:31 [facility] Disclaimer: The information contained in this section may have been updated after the patient was seen, as this information can be updated by other users. Medical History Sinusitis C. difficile colitis Breast cancer screening Endometriosis Inguinal hernia Depression Hypertension Hypothyroid Surgical History H/O laparoscopy H/O inguinal hernia repair History of section Family History Other Colon cancer Family history of cancer Family history of myocardial infarction Social History Smoking Status: Current every day smoker tobacco type: cigarettes smoking status start date: 1/2 pack day years smoked: 30 quit status: considering quitting alcohol intake: never substance use type: denies use current occupational status: other Travel in the last 8 weeks?: None household members: family housing: house marital status: single education level: college Have you lived/traveled outside [place] in past 30 days?: No Contact w/someone who lives/traveled outside US past 30 days?: No Exposure to someone with infectious disease in past 14 days?: No Do you have a fever (greater than 100.4 F or 38 C)?: No Have you tested positive for COVID-19?: No Exposed to someone with COVID-19 in past 14 days?: No Do you have a sore throat?: No Do you have a cough?: No Do you have any weakness?: No Do you have any diarrhea?: No Are you experiencing any unusual bleeding?: No Do you have any muscle aches/pain?: No Do you have any abdominal pain?: No Are you experiencing loss of taste or smell?: No Other Medical History Have you received the Flu Vaccine for this season: Yes Have you received the Pneumonia Vaccine: No ROS Obtained: Yes All systems reviewed & no additional complaints except as documented Physical Exam General General appearance: alert and in no apparent distress Head Head exam: atraumatic and normocephalic Eye Eye exam: Present PERRL and EOMI ENT ENT exam: Present mucous membranes moist Neck Neck exam: Present normal inspection Chest Chest inspection: Present normal inspection and symmetric chest wall rise Respiratory Respiratory exam: Present wheezes and other (Mild to moderate wheezes and mild crackles noted throughout bilateral lung weaver); Absent normal lung sounds bilaterally or respiratory distress Cardiovascular Cardiovascular exam: Present regular rate and normal rhythm Abdominal Exam Abdominal exam: Present soft; Absent tenderness Extremities Exam Extremities exam: Present normal inspection Neurological Exam Neurological exam: Present alert and oriented X3 Psychiatric Psychiatric exam: Present normal affect Skin Skin exam: Present warm and dry Medical Decision Making Medical Records Medical records reviewed: Yes I reviewed the patient's medical records. Screening: Per USPSTF and CDC recommendations, given the prevalence of disease in our region, it is our hospital?s policy to screen for HIV and viral Hepatitis for all patients aged 18 and over and those with ongoing risk factors. Mauro Inquiry Pt receiving controlled substance: No Mauro was queried for this patient: No Vital Signs: 09/30/25 18:26 09/30/25 18:29 09/30/25 18:31 Temperature 97.7 F Temperature Source Oral Pulse Rate 93 H 92 H Pulse Rate [Right Radial] 96 H Respiratory Rate 15 Blood Pressure 138/104 H 164/123 H Blood Pressure [Right Arm] 138/104 H Blood Pressure Mean Blood Pressure Mean [Right Arm] 115 Blood Pressure Source Blood Pressure Source [Right Arm] Automatic Cuff Blood Pressure Position 02 Sat by Pulse Oximetry 95 96 96 Oxygen Delivery Method Room Air Room Air Room Air 09/30/25 19:21 09/30/25 19:30 09/30/25 20:01 Temperature Temperature Source Pulse Rate 75 63 76 Pulse Rate [Right Radial] Respiratory Rate Blood Pressure 147/131 H 135/91 H 125/73 Blood Pressure [Right Arm] Blood Pressure Mean 134 105 90 Blood Pressure Mean [Right Arm] Blood Pressure Source Blood Pressure Source [Right Arm] Blood Pressure Position 02 Sat by Pulse Oximetry 96 94 L 94 L Oxygen Delivery Method 09/30/25 21:43 Temperature 98.5 F Temperature Source Oral Pulse Rate 68 Pulse Rate [Right Radial] Respiratory Rate 14 Blood Pressure 134/92 H Blood Pressure [Right Arm] Blood Pressure Mean Blood Pressure Mean [Right Arm] Blood Pressure Source Automatic Cuff Blood Pressure Source [Right Arm] Blood Pressure Position Sitting 02 Sat by Pulse Oximetry Oxygen Delivery Method Room Air Lab Data Lab results reviewed: Yes I reviewed the patient's lab results. Lab Results 09/30/25 18:27: Chlamy pneumoniae PCR Not detected, Adenovirus (PCR) Not detected, B. pertussis DNA (PCR) Not detected, Coronavirus OC43 (PCR) Not detected, Coronavirus HKU1 (PCR) Not detected, Coronavirus 229E (PCR) Not detected, SARS-CoV-2 (PCR) Not detected, Coronavirus NL63 (PCR) Not detected, Human Metapneumovir PCR Not detected, Influenza A (H1) PCR Not detected, Influ A (H1N1/09) PCR Not detected, Influenza A (H3) PCR Not detected, Influenza Type A (PCR) Not detected, Influenza Type B (PCR) Not detected, M. pneumoniae (PCR) Not detected, Parainfluenza 1 (PCR) Not detected, Parainfluenza 2 (PCR) Not detected, Parainfluenza 3 (PCR) Not detected, Parainfluenza 4 (PCR) Not detected, RSV (PCR) Not detected, Entero/Rhino (PCR) Detected A 09/30/25 18:58: Urine Color Yellow, Urine Appearance Clear, Urine pH 6.5, Ur Specific [place] 1.020, Urine Protein Negative, Urine Glucose (UA) Negative, Urine Ketones Trace, Urine Blood Negative, Urine Nitrate Negative, Urine Bilirubin Negative, Urine Urobilinogen 0.2, Ur Leukocyte Esterase Trace, Urine RBC 5-10, Urine WBC 10-20, Ur Squamous Epith Cells 5-10, Amorphous Sediment Trace, Urine Bacteria 1+, Urine Mucus 4+ 09/30/25 19:18: WBC 6.9, RBC 4.70, Hgb 14.5, Hct 41.5, MCV 88.3, MCH 30.9, MCHC 34.9, RDW 11.4 L, Plt Count 248, MPV 9.2, Neut % (Auto) 61.7, Lymph % (Auto) 27.6, [place] % (Auto) 6.9, Eos % (Auto) 3.4, Baso % (Auto) 0.3, Neut # (Auto) 4.2, Lymph # (Auto) 1.9, [place] # (Auto) 0.5, Eos # (Auto) 0.2, Baso # (Auto) 0.0, S odium 133 L, Potassium 3.5, Chloride 102, Carbon Dioxide 25, Anion Gap 9.5, BUN 11, Creatinine 0.70, Estimated Creat Clear 107, Estimated GFR 86, Est GFR ( Amer) 104, Glucose 105 H, Calcium 9.3, Magnesium 1.9, Total Bilirubin 0.5, AST 35, ALT 28, Alkaline Phosphatase 91, Troponin I 0.02, NT-Pro-B Natriuret Pep < 20.0, Total Protein 7.6, Albumin 4.4, Globulin 3.2, Albumin/Globulin Ratio 1.4, HIV Ag/Ab Combo Qual Negative 09/30/25 20:51: Troponin I < 0.01 09/30/25 19:18 09/30/25 19:18 Orders (Tests/Meds): ED MEDICATIONS Discontinued Medications Generic Name Dose Route Start Last Admin Trade Name Freq PRN Reason Stop Dose Admin Albuterol/Ipratropium 6 ml 09/30/25 19:16 09/30/25 19:33 Ipratropium/Albuterol 3 Ml Neb IH 09/30/25 19:17 6 ml ONCE ONE Administration Ketorolac Tromethamine 15 mg 09/30/25 21:46 09/30/25 21:55 Ketorolac 15mg/Ml Vial IV 09/30/25 21:47 15 mg ONCE ONE Administration Methylprednisolone Sodium Succinate 125 mg 09/30/25 19:16 09/30/25 19:32 Methylprednisolone Sod Succ 125mg Vial IV 09/30/25 19:17 125 mg ONCE ONE Administration ORDERS Category Date Time Status POCUS Point of Care (ER Only) Stat Exams 09/30/25 20:02 Completed XR chest portable Stat Exams 09/30/25 18:55 Completed Complete Blood Count Auto Diff Stat Lab 09/30/25 19:18 Completed Comprehensive Metabolic Panel Stat Lab 09/30/25 19:18 Completed Full Resp Panel w/COVID ([facility]) Routine Lab 09/30/25 18:27 Completed HIV Combo Stat Lab 09/30/25 19:18 Completed Magnesium Stat Lab 09/30/25 19:18 Completed NT Pro Brain Natriuretic Pep. Stat Lab 09/30/25 19:18 Completed Troponin I Q3H Lab 09/30/25 20:51 Completed Troponin I Stat Lab 09/30/25 19:18 Completed Urinalysis and Microscopic Stat Lab 09/30/25 18:58 Completed Urine Culture Stat Micro 09/30/25 18:58 Received Medical Decision Narrative: 60-year-old female presents the emergency department with a 1.5-week history of URI type symptomatology and stress incontinence type symptomatology which is chronic for her, differential diagnose include but not limited to, acute URI, acute bronchitis, pneumonia, COPD exacerbation, new onset CHF exacerbation, pleural effusion, pleurisy, among others. I discussed this patient's case with the attending physician Dr. Katz. Will obtain basic laboratory studies, chest x-ray, EKG, magnesium level proBNP troponin, urinalysis and full respiratory panel, will give 6 mm DuoNeb, 125 mg IV methylprednisone, will also obtain POCUS. UA is unremarkable negative trace leukocyte esterase, negative hematuria. CBC grossly unremarkable COPD is noted for mild hyponatremia 133 proBNP within normal limits Microscopic analysis known for 5-10 RBCs 10-20 WBCs 5-10 squamous epithelial cells trace amorphous sediment, 1+ bacteria Initial troponin 0.02 I reviewed the patient's chest x-ray along the corresponding radiologic report, no acute findings. Full respiratory panel is notable for rhinovirus. Repeat troponin is less than 0.01. Limited cardiac ultrasound Indication: [--Shortness of breath] Identified cardiac views: [-Cardiac parasternal long axis] [-Cardiac parasternal short axis] [-Cardiac apical four-chamber] [-Cardiac subxiphoid] Findings: [-Cardiac activity present -Wall motion grossly normal -Pericardial effusion absent -Right heart strain absent] Impression: -[From above] Images [were saved] to permanent archive The study [was] technically adequate CPT: 93303 This study was performed by me, and I personally interpreted all images/videos. Based on my clinical judgement, these images were [adequate/inadequate] and [did/did not] necessitate further imaging. I discussed the results with the patient at bedside, patient has remained hemodynamically stable third time in the emergency department, patient most likely suffered from viral bronchitis in the setting of a rhinovirus, with possible COPD exacerbation, patient also inform me that she is not taking the rest of her Augmentin p.o. medication as prescribed to her 2 days ago by urgent care treatment facility, patient states that she threw it away . Thus prescribe new medication azithromycin 500 mg for the first day, and 250 mg subsequent days (Z-Yayo), as well as prednisone 40 mg p.o. twice daily for 5 days for COPD exacerbation as stated above. Patient was given strict ED return precautions. Patient voiced understanding and agreement with the current treatment plan/discharge plan. Also of note, upon discharge, patient is requesting Toradol , for pain, will give 15 mg IV Toradol prior to DC. Critical Care Critical Care Time Critical Care Time: No
--- OUTSIDE RECORDS SUMMARY | 2025-09-30 18:31 | XMS_ITS | Patient Health Record ---
Author Organization [facility] Address [address] [place] [address] Care Team Providers Care Laboratory Animal Care Veterinarian Name Role Phone Steve Ibarra PA-C Primary Care Provider [phone] Allergies Allergen (clinical drug ingredient) Drug/Non Drug Allergy documented on EMR Reaction Allergy Type Onset Date Status sulfamethoxazole / trimethoprim Sulfamethoxazole- Trimethoprim Tongue/lip swelling Drug Allergy Active Reason For Referral No Information Medications Medication SIG (Take, Route, Frequency, Duration) Notes Start Date End Date Status KlonoPIN 1 MG Tablet 1 tablet at bedtime Orally Once a day Active Naproxen 500 mg Tablet 1 tablet with rosanne d or milk as needed Orally every 12 hrs; Duration: 15 days 12/01/2017 Active Gabapentin 300 MG Capsule 1 capsule Oral ly Three times a day 11/26/2017 Not-Taking Lisinopril 20 MG Tablet 1 cap(s) Orally daily Active Levothyroxine Sodium 50 MCG Tablet 1 tablet on an empty stomach in the morning Orally Once a day; Duration: 30 day(s) Active FLUoxetine HCl 20 MG Capsule 1 capsule in the morning Orally Once a day; Duration: 30 days 12/10/2017 Active Terbinafine HCl pulse therapy 250 MG Tablet 2 tablets Orally Once a day for one week each month for three months 12/26/2017 Active Social History Tobacco Use: Social History Observation Description Date Details (start date - stop date) Current Smoker NA - NA Social History General Social Info Question Answer Notes TOBACCO STATUS Current smoker < 1/2 ppd Additional Details Category Social Info Options Details General Alcohol: minimal Caffeine: 2 cups per day, coffee Children: none Marital status Single Problems Problem Type SNOMED Code ICD Code Onset Dates Problem Status W/U Status Risk Notes Problem Low back pain (511828449) Low back pain (M54.5) Active confirmed Facet disease Problem Allergic rhinitis (13858217) Allergic rhinitis, unspecified (J30.9) Active confirmed Problem Anxiety state (124828186) -Anxiety disorder (F41.9) Active confirmed Problem Recurrent major depression (75645201) -Depression (F33.9) Active confirmed Problem Insomnia (418570011) -Insomnia (G47.00) Active confirmed Problem Hypothyroidism (36183083) Hypothyroidism (E03.9) Active confirmed Needs labs checked Problem Hypertension (02296961) Hypertension (I10) Active confirmed Slightly elevated today, off of medication s. Problem Sleep disorder (98890180) Sleep disorder (G47.9) Active confirmed Off medication , needs refills Problem Major depressive disorder (116001438) MDD (major depressive disorder) (F32.9) Active confirmed Plan Of Treatment No Information Medical (General) History Medical History History ICD Code Depression Hypothyroid Sleep disorder HTN Surgical History Surgery Date(Month/Year) Cesarian x 2 Uterine Ablation
--- OUTSIDE RECORDS SUMMARY | 2025-09-30 18:32 | XMS_ITS | Patient Health Record ---
Author Organization [facility] Address [address] [place] [address] Phone [phone] Care Team Providers Care Data Governance Analyst Name Role Phone DIAZ VALLADARES Primary Care Provider SEDRICK RESTREPOERICKA Rasheeda [phone] Allergies Allergen (clinical drug ingredient) Drug/Non Drug Allergy documented on EMR Reaction Allergy Type Onset Date Status Ciprofloxacin Unknown Drug Allergy Act karen Sulfacet-R Unknown Drug Allergy Active Seasonal IC Unknown Drug Allergy Activ e Reason For Referral No Information Medications Medication SIG (Take, Route, Frequency, Duration) Notes Start Date End Date Diagnosis (ICD Code) Status Nystatin 238395 UNIT/ML Suspension 4 ml Mouth/Throat Four times a day; Duration: 30 day(s) Thrush (ICD_10 - B37.0) Active Augmentin 500-125 MG Tablet 1 tablet Orally bid; Duration: 7 days 02/10/2020 Active Ibuprofen 800 MG Tablet 1 tablet with food or milk as needed Orally every 8 hrs; Duration: 8 days 05/24/2020 Active Effexor Active Levothyroxine Sodium 150 MCG Tablet 1 tablet in the morning on an empty stomach Orally Once a day; Duration: 90 days Active Multivitamin Active Lisinopril 20 MG Tablet 1 tablet Orally Once a day; Duration: 90 days Active Levothyroxine Sodium Act karen Effexor XR 150 MG Capsule Extended Release 24 Hour 1 capsule with food Orally Once a day; Duration: 90 days Active Lisinopril Active Fluticasone Propionate 50 MCG/ACT Suspension USE ONE SPRAY IN EACH NOSTRIL ONE TIME DAILY; Duration: 60 Active hydrOXYzine HCl 50 MG Tablet 1 tablet as needed Orally every 8 hrs; Duration: 30 day(s) Active Amoxicillin 500 MG Capsule 1 capsule Orally every 8 hrs; Duration: 10 day(s) 04/26/2020 Active Flonase 50 MCG/ACT Suspension 1 spray in each nostril Nasally Once a day; Duration: 30 day(s) 02/10/2020 Active Loratadine 10 MG Tablet 1 tablet Orally Once a day; Duration: 30 day(s) Seasonal allergies (ICD_10 - J30.2) Active Triamcinolone Acetonide 0.1 % Paste 1 application to oral lesion Mouth/Throat Twice a day; Duration: 30 day(s) 03/06/2020 Canker sores oral (ICD_10 - K12.0) Active Social History Tobacco Use: Social History Observation Description Date Details (start date - stop date) Current Smoker NA - NA Sex Observation Social History Observation Description Sex Observation Female Social History Drugs/Alcohol: Social Info Question Answer Notes Alcohol Screen (Audit-C) Did you have a drink containing alcohol in the past year? No Points 0 Interpretation Negative Tobacco Use: Social Info Question Answer Notes Tobacco Use/Smoking Are you a current smoker Problems Problem Type SNOMED Code ICD Code Dates Problem Status W/U Status Risk Notes Problem Anxiety (99998276) Anxiety (F41.9) Added On:2019 Active confirmed Problem Seasonal allergy (995732306) Seasonal allergies (J30.2) Added On:2019 Active confirmed Problem Obesity (016551223) Obesity (E66.9) Added On:2019 Active confirmed Problem Hypertension (10166542) HTN (hypertension) (I10) Added On:2019 Active confirmed Problem Hypothyroid (13295337) Hypothyroid (E03.9) Added On:2019 Active confirmed Plan Of Treatment No Information Insurance Providers Payer Name Payer Address Payer Phone Subscriber Number Group Number Insured Name Patient Relationship to Insured Coverage Start Date Coverage End Date [employer] Medicare Advantage [address] [address] [place] [address] [id number] CHRISSY BURNS Self - patient is the insured 0 [employer] [address] [address] [place] [address] [phone] [id number] CHRISSY BURNS Self - patient is the insured Medical (General) History Medical History History ICD Code ADHD ANXIETY depression HIGH BLOOD PRESSURE Mental disorder THYROID DISEASE/PROBLEMS SMOKER
--- OUTSIDE RECORDS SUMMARY | 2025-09-30 18:32 | XMS_ITS | Clinical Summary ---
Author Organization [facility] Address [address] [id number] Care Team Providers Care Tape Sewing Machine Operator Name Role Phone Mark Trevizo THIOKOL OPERATOR Primary Care Provider Social History Tobacco Use Types Packs/Day Years Used Date Smoking Tobacco: Never Assessed Comments Unknown Sex and Gender Information Value Date Recorded Sex Assigned at Not on file Legal Sex Female 1:40 PM EDT Gender Identity Not on file Sexual Orientation Not on file Plan of Treatment Health Maintenance Due Date Last Done Comments [facility]-Depression Screening 1967 [facility]-/Child/Adol SDOH Screenings 1967 [facility]- SDOH Screenings 1985 [facility]-Adult SDOH Screenings 1985 [facility]-DTaP,Tdap,and Td Vaccine s (1 - Tdap) 1986 [facility]-Hepatitis B Vaccines (1 of 3 - 19+ 3-dose series) 1986 [facility]-Pap Smear 02/23/1988 [facility]-Cervical Cancer Screening 1997 [facility]-HPV/Cotest 1997 CT Colonography 02/23/2012 Colonoscopy 02/23/2012 FIT-DNA 02/23/2012 FIT 02/23/2012 FOBT 02/23/2012 Sigmoidoscopy 02/23/2012 [facility]-Colorectal Cancer Screening 02/23/2012 [facility]-Pneumococcal Vaccine: 50 + Years (1 of 1 - PCV) 2017 [facility]-Zoster Vaccines (1 of 2) 2017 GIN-ABBFY-26 Vaccine (3 - season) 2025 09/07/2024, 06/10/2023 [facility]-Influenza Vaccine (#1) 06/27/202509/07, 06/10/2023 HPV Vaccines Aged Out No longer [...] to complete this topic Insurance Care Teams Tape Sewing Machine Operator Relationship Specialty Start Date End Date Mark Trevizo APRN [address] [place] [id number] PCP - General 09/17/24
--- NOTE | 2025-09-30 18:55 | XR_ITS ---
PROCEDURE INFORMATION: Exam: XR Chest Exam date and time: 09/30/2025 7:21 PM Age: 60 years old Clinical indication: Shortness of breath; Additional info: Shortness of air, productive cough TECHNIQUE: Imaging protocol: Radiologic exam of the chest. Views: 1 view. COMPARISON: CR XR CERVICAL SPINE 3V 02/08/2025 5:10 PM FINDINGS: Lungs: Unremarkable. No consolidation. Pleural spaces: Unremarkable. No pleural effusion. No pneumothorax. Heart/Mediastinum: Unremarkable. No cardiomegaly. Bones/joints: Unremarkable. IMPRESSION: No acute findings.
[2025-09-30 18:58] LABS: Adenovirus,PCR Not Detected (NotDetected); Chlamydophila Pneumoniae, PCR Not Detected (NotDetected); Coronavirus 19, PCR Not Detected (NotDetected); Coronovirus HKU1,PCR Not Detected (NotDetected); Influenza A, PCR Not Detected (NotDetected); Influenza AH1, 2009 Not Detected (NotDetected); Influenza AH1, PCR Not Detected (NotDetected); Influenza AH3,PCR Not Detected (NotDetected); Influenza B, PCR Not Detected (NotDetected); Mycoplasma Pneumoniae, PCR Not Detected (NotDetected); Parainfluenza 1, PCR Not Detected (NotDetected); Parainfluenza 2, PCR Not Detected (NotDetected); Parainfluenza 3, PCR Not Detected (NotDetected); Parainfluenza 4, PCR Not Detected (NotDetected)
--- NOTE | 2025-09-30 19:08 | ECG_ITS ---
APPROVED REPORT Exam: Resting ECG HR:70 bpm ECG Measurements Heart Rate 70 AXES WV 154 P 72 QRSd 82 QRS 66 QT 379 T 76 QTc 400 Conclusion Normal sinus rhythm Normal axis Normal intervals No STEMI Electronically signed by : Rigoberto Katz, 09/30/2025 23:28:47
[2025-09-30 19:10] LABS: Microscopic, Urine URINE MICROSCOPIC (MICROSCOPIC)
[2025-09-30 19:17] LABS: Bilirubin,Urine Negative (Negative); Color,Urine YELLOW (Yellow); Glucose,Urine (UA) Negative (Negative); Ketones,Urine TRACE (Negative); Leukocyte Esterase,Urine TRACE (Negative); PH,Urine 6.5 (5.0-8.5); Protein,Urine Negative (Negative); Specific Gravity, Urine 1.020 (1.005-1.030); Urobilinogen,Urine 0.2 EU/dl (0.2)
[2025-09-30 19:26] LABS: Amorphous Sediment,Urine Trace /lpf; Bacteria,Urine 1+ /lpf; Mucus,Urine 4+ /lpf
[2025-09-30] MEDS: METHYLPREDNISOLONE SOD SUCC 125MG VIAL 125 MG IV (19:32)
[2025-09-30] MEDS: IPRATROPIUM/ALBUTEROL 3 ML NEB 6 ML IH (19:33)
[2025-09-30 19:34] LABS: Hematocrit 41.5 % (37.0-47.0); Hemoglobin 14.5 g/dL (12.2-16.2); Immature Granulocytes % 0.1 %; Mean Corpuscular HGB Conc 34.9 g/dL (31.8-35.4); Mean Corpuscular Hemoglobin 30.9 pg (27.0-31.2); Mean Corpuscular Volume 88.3 fl (81-99); Nucleated Red Blood Cells % 0 %; Platelet Count 248 K/mm3 (142-424); Red Blood Count 4.70 M/mm3 (4.20-5.40); Red Cell Distribution Width-SD 36.6 fL; White Blood Count 6.9 K/mm3 (4.8-10.8)
[2025-09-30 19:36] LABS: Alanine Aminotransferase 28 U/L (12-78); Albumin Level 4.4 g/dl (3.5-5.0); Albumin/Globulin Ratio 1.4 (1.1-1.8); Alkaline Phosphatase 91 U/L (38-126); Anion Gap 9.5 mEq/L (5-15); Aspartate Amino Transferase 35 U/L (14-36); Bilirubin,Total 0.5 mg/dl (0.2-1.3); Blood Urea Nitrogen 11 mg/dl (7-17); Calcium 9.3 mg/dl (8.4-10.2); Carbon Dioxide 25 mmol/L (22.0-30.0); Chloride 102 mmol/L (98-107); Creatinine Clearance Estimated 107 mL/min (50-200); Creatinine,Serum 0.70 mg/dl (0.52-1.04); Estimated Glomerular Filt Rate 86 ml/min (>60); GFR (African American) 104 ML/MIN (>60); Globulin 3.2 g/dL (1.3-3.2); Glucose 105 mg/dl (74-100); Magnesium 1.9 mg/dl (1.6-2.3); Potassium 3.5 mmoL/L (3.5-5.1); Sodium 133 mmol/L (136-145); Total Protein,Serum 7.6 g/dl (6.3-8.2)
[2025-09-30 19:45] LABS: NT Pro Brain Natriuretic Pep. < 20.0 pg/mL (0-125)
[2025-09-30 19:48] LABS: Troponin I 0.02 ng/ml (0.00-0.034)
[2025-09-30 21:26] LABS: Troponin I < 0.01 ng/ml (0.00-0.034)
[2025-09-30] MEDS: KETOROLAC 15MG/ML VIAL 15 MG IV (21:55)
--- NOTE | 2025-10-02 06:48 | PC.NURSE ---
Prelim urine culture discussed with . no change needed to the pts treatment as she was already sent augmentin by [facility].
--- NOTE | 2025-10-04 09:38 | PC.NURSE ---
Urine culture reviewed by Dr. Rubin. Levaquin 750 mg PO daily x 5 days prescribed. Called in to [facility]. wants patient to stop all other antibiotics if she is still taking. Attempted to call patient to let her know. No answer. Left message for patient to call back.
== END 2025-09-30 21:55 | disposition home or self-care (01) ==
PROVIDERS: Physician Assistant; Emergency Provider Student in an Organized Health Care Education/Training Program; PCP Nurse Practitioner Family
DX: J44.1 Chronic obstructive pulmonary disease with (acute) exacerbation (principal); B34.8 Other viral infections of unspecified site; N39.3 Stress incontinence (female) (male); I10 Essential (primary) hypertension; F17.210 Nicotine dependence, cigarettes, uncomplicated; E87.1 Hypo-osmolality and hyponatremia; Z79.899 Other long term (current) drug therapy
CPT/HCPCS: 0223U; 71045; 80053; 81001; 83735; 83880; 84484; 85025; 87086; 87088; 87186; 87389; 93005; 96374; 96375; 99285; J1885; J2919

== ENCOUNTER 2025-10-23 16:16 | Emergency (ER) | payer BC, SELFPAY ==
[2025-10-23 16:57] VITALS: BP 135/99; PULSE 89; RESP 18; TEMP 36.8; O2SAT 99; BMI 25.8
--- OUTSIDE RECORDS SUMMARY | 2025-10-23 17:05 | XMS_ITS | Patient Health Record ---
Author Organization [facility] Address [address] [place] [address] Care Team Providers Care Fleet Maintenance Manager Name Role Phone Steve Ibarra PA-C [...] Status Risk Notes Problem Low back pain (234966631) Low back pain (M54.5) Active confirmed Facet disease Problem Allergic rhinitis (58728442) Allergic rhinitis, unspecified (J30.9) Active confirmed Problem Anxiety state (623146919) -Anxiety disorder (F41.9) Active confirmed Problem Recurrent major depression (72311761) -Depression (F33.9) Active confirmed Problem Insomnia (796311673) -Insomnia (G47.00) Active confirmed Problem Hypothyroidism (62846848) Hypothyroidism (E03.9) Active confirmed Needs labs checked Problem Hypertension (65372542) Hypertension (I10) Active confirmed Slightly elevated today, off of medication s. Problem Sleep disorder (25797361) Sleep disorder (G47.9) Active confirmed Off medication , needs refills Problem Major depressive disorder (491435172) MDD (major depressive disorder) (F32.9) Active confirmed Plan Of Treatment No Information Medical (General) History Medical History History ICD Code Depression Hypothyroid Sleep disorder HTN Surgical History Surgery Date(Month/Year) Cesarian x 2 Uterine Ablation
--- OUTSIDE RECORDS SUMMARY | 2025-10-23 17:05 | XMS_ITS | Clinical Summary ---
Author Organization [facility] Address [address] [id number] Care Team Providers Care Retail Stock Clerk Name Role Phone Mark Trevizo APRN Primary Care Provider [phone] Social History Tobacco Use Types Packs/Day Years Used Date Smoking Tobacco: Never Assessed Comments Unknown Sex and Gender Information Value Date Recorded Sex Assigned at Not on file Legal Sex Female 1:40 PM EDT Gender Identity Not on file Sexual Orientation Not on file Plan of Treatment Health Maintenance Due Date Last Done Comments [facility]-Depression Screening 1967 [facility]-Infant/Child/Adol SDOH Screenings 1967 [facility]- [...] 2017 [facility]-Zoster Vaccines (1 of 2) 2017 [id number]-SIBNC-52 Vaccine (3 - 2024- season) 2025 09/07/2024, 06/10/2023 [facility]-Influenza Vaccine (#1) 06/27/202509/07, 06/10/2023 HPV Vaccines (No Doses Required) Completed [facility]-HIB Vaccines Aged Out No longer e [...] patient's age to complete this topic Insurance [place] [address] [employer] [facility] MEDICAID Care Teams Retail Stock Clerk Relationship Specialty Start Date End Date Mark Trevizo APRN [id number] PCP - General 09/17/24
--- OUTSIDE RECORDS SUMMARY | 2025-10-23 17:05 | XMS_ITS | Patient Health Record ---
Author Organization [facility] Address [address] [place] [address] Phone [phone] Care Team Providers Care Director Software Name Role Phone DIAZ VALLADARES Primary Care Provider SEDRICK RESTREPOERICKA Rasheeda [phone] Allergies Allergen (clinical drug ingredient) Drug/Non Drug Allergy documented on EMR Reaction Allergy Type Onset Date Status Ciprofloxacin Unknown Drug Allergy Act karen Sulfacet-R Unknown Drug Allergy Active Seasonal IC Unknown Drug Allergy Activ e Reason For Referral No Information Medications Medication SIG (Take, Route, Frequency, Duration) Notes Start Date End Date Diagnosis (ICD Code) Status Nystatin 740039 UNIT/ML Suspension 4 ml Mouth/Throat Four times [...] Status W/U Status Risk Notes Problem Anxiety (69191610) Anxiety (F41.9) Added On:2019 Active confirmed Problem Seasonal allergy (509240218) Seasonal allergies (J30.2) Added On:2019 Active confirmed Problem Obesity (816552692) Obesity (E66.9) Added On:2019 Active confirmed Problem Hypertension (08901286) HTN (hypertension) (I10) Added On:2019 Active confirmed Problem Hypothyroid (65553804) Hypothyroid (E03.9) Added On:2019 Active confirmed Plan Of Treatment No Information Insurance Providers Payer Name Payer Address Payer Phone Subscriber Number Group Number Insured Name Patient Relationship to Insured Coverage Start Date Coverage End Date [employer] Medicare Advantage [address] [address] [place] [address] [phone] [id number] CHRISSY BURNS Self - patient is the insured 0 [employer] [address] [address] [place] [address] [phone] [id number] CHRISSY BURNS Self - patient is the insured Medical (General) History Medical History History ICD Code ADHD ANXIETY depression HIGH BLOOD PRESSURE Mental disorder THYROID DISEASE/PROBLEMS SMOKER
--- NOTE | 2025-10-23 17:18 | ED_ITS ---
Discharge Plan Disposition Patient Disposition: Home, Self-Care Prescriptions Prescriptions: No Action rosuvastatin 10 mg tablet 10 mg PO DAILY prednisone 10 mg tablet 10 mg PO DAILY PRN (Reason: pain) Qty: 20 0RF amoxicillin-pot clavulanate 875-125 mg tablet 1 tab PO BID 7 Days Qty: 14 0RF guaifenesin [Mucinex] 1,200 mg tablet extended release 12hr 1,200 mg PO BID PRN (Reason: congestion) Qty: 20 0RF benzonatate 100 mg capsule 100 mg PO TID PRN (Reason: cough) Qty: 30 0RF ondansetron 4 mg tablet,disintegrating 4 mg PO Q8H PRN (Reason: nausea and vomiting) Qty: 30 0RF oxybutynin chloride 10 mg tablet extended release 24hr 10 mg PO DAILY Qty: 90 3RF estradiol 0.01 % (0.1 mg/gram) cream See Rx Instructions vaginal .COMPLEX Qty: 42.5 2RF Rx Instructions: Using finger technique daily for two weeks and then twice weekly vaginally; venlafaxine 150 mg capsule,extended release 24hr 150 mg PO DAILY Qty: 90 3RF venlafaxine 37.5 mg capsule,extended release 24hr 37.5 mg PO DAILY Qty: 90 3RF levothyroxine 125 mcg tablet 125 mcg PO DAILY Qty: 90 0RF liothyronine 50 mcg tablet See Rx Instructions .ROUTE .COMPLEX Qty: 90 3RF Dose Instruction: TAKE 1 TABLET BY MOUTH ONCE DAILY Rx Instructions: TAKE 1 TABLET BY MOUTH ONCE DAILY albuterol sulfate [Ventolin HFA] 90 mcg/actuation HFA aerosol inhaler 2 puff inhalation Q4-6H PRN (Reason: shortness of breath or wheezing) Qty: 8.5 2RF fluticasone propionate [Flonase Allergy Relief] 50 mcg/actuation spray,suspension 1 spray intranasal DAILY Qty: 16 2RF Rx Instructions: administer into each nostril lisinopril 20 mg tablet 20 mg PO DAILY Qty: 90 3RF ibuprofen 800 mg tablet See Rx Instructions .ROUTE .COMPLEX Qty: 90 0RF Dose Instruction: TAKE 1 TABLET BY MOUTH THREE TIMES DAILY NEEDED FOR PAIN Rx Instructions: TAKE 1 TABLET BY MOUTH THREE TIMES DAILY NEEDED FOR PAIN ibuprofen 800 mg tablet See Rx Instructions .ROUTE .COMPLEX Qty: 90 0RF Dose Instruction: TAKE 1 TABLET BY MOUTH THREE TIMES DAILY Rx Instructions: TAKE 1 TABLET BY MOUTH THREE TIMES DAILY famotidine 20 mg tablet See Rx Instructions .ROUTE .COMPLEX Qty: 90 0RF Dose Instruction: Take 1 tablet by mouth once daily Rx Instructions: Take 1 tablet by mouth once daily tizanidine 4 mg tablet See Rx Instructions .ROUTE .COMPLEX Qty: 90 2RF Dose Instruction: TAKE 1 TABLET BY MOUTH THREE TIMES DAILY Rx Instructions: TAKE 1 TABLET BY MOUTH THREE TIMES DAILY dextroamphetamine-amphetamine [Adderall] 10 mg tablet 10 mg PO BID Qty: 60 0RF Rx Instructions: administer doses at least 4-6 hours apart azithromycin 500 mg tablet See Rx Instructions .ROUTE .COMPLEX Qty: 6 0RF Rx Instructions: For 250 mg dose pack: take 500 mg today (day 1), then 250 mg for 4 days (days 2-5) prednisone 20 mg tablet 40 mg PO DAILY 5 Days Qty: 10 0RF oxycodone 5 mg tablet 5 mg PO DAILY Qty: 4 0RF Referrals Follow up/Referrals: Mark Trevizo APRN [Primary Care Provider, Family Practice] - See instructions Activity Restrictions/Add. Instructions Additional Instructions/Restrictions: Your swab came back positive for COVID-19. Continue to take Tylenol and ibuprofen to help with symptoms. Ensure that you drink plenty of fluids. You were treated with antibiotics and steroids here for possible bacterial sinus infection, however this could be related to your viral COVID infection instead. If your sinus infection does not improve over the next several days, is likely because of the viral infection and not because of a bacterial infection. I do encourage you to follow-up with your primary care doctor as needed. If you develop any new or worsening symptoms, or if you become concerned for your help for any reason, return to the emergency department for evaluation Clinical Impressions Clinical Impression: COVID-19 Instructions Patient Instructions: DI for Urinary Tract Infection (UTI), DI for Urinary Tract Infection in Children Print Language Print Language: Turkmen Discharge ED Provider: Pedro Pablo Flores Adult [facility] General Chief complaint: Urogenital-Female Stated complaint: sinus infection with rhinovirus over month Time Seen by Provider: 10/23/25 17:02 Mode of Arrival: Ambulatory Source of Information: Patient Description of Symptoms (Recalled from ER Triage Doc. by RN): Reports having Rhinovirus approx one month ago and still having symptoms. Complaint of headache, congestion and possible UTI. History of Present Illness HPI narrative: Jenna Lemon is a 60-year-old female with a history of hypertension, frequent sinusitis who presents the emergency department for complaints of a sinus infection. Patient states that she was diagnosed with rhinovirus and a sinus infection approximately 1 month ago. She states that she was treated with antibiotics, steroids at that time. She states that it briefly improved but ever since the of this month, she has had sinus congestion, pain to both ears and a headache. She states that she has not had a day off work for 2 weeks But notes that she has been treated for multiple sinus infections with a shot of Rocephin and steroids and that seems to help. She reports objective fevers. Related Data Home Medications ?Medication ?Instructions ?Recorded ?Confirmed rosuvastatin 10 mg tablet 10 mg PO DAILY 02/02/2501/18 Previous Rx's ?Medication ?Instructions ?Recorded estradiol 0.01% (0.1 mg/gram) See Rx Instructions vagi nal 01/19/25 vaginal cream .COMPLEX #42.5 grams oxybutynin chloride 10 mg 10 mg PO DAILY #90 tabs 12/26 04/20 tablet,extended release 24 hr levothyroxine 125 mcg tablet 125 mcg PO DAILY #90 tabs 02/03/25 liothyronine 50 mcg tablet See Rx Instructions .Route 02/03/25 .COMPLEX #90 tabs venlafaxine 150 mg 150 mg PO DAILY #90 caps 08/20 capsule,extended release 24 hr venlafaxine 37.5 mg 37.5 mg PO DAILY #90 caps capsule,extended release 24 hr ondansetron 4 mg disintegrating 4 mg PO Q8H PRN nausea and 04/19/25 tablet vomiting #30 tabs prednisone 10 mg tablet 10 mg PO DAILY PRN pain #20 tabs 07/13/25 oxycodone 5 mg tablet 5 mg PO DAILY #4 tabs albuterol sulfate 90 mcg/actuation 2 puff inhalation Q 4-6H PRN 07/19/25 aerosol inhaler (Ventolin HFA) shortness of breath or wheezing #8.5 grams fluticasone propionate 50 1 spray intranasal DAILY #16 grams 07/19/25 mcg/actuation nasal spray,suspension (Flonase Allergy Relief) lisinopril 20 mg tablet 20 mg PO DAILY High Blood Pr essure 07/21/25 #90 tabs ibuprofen 800 mg tablet See Rx Instructions .Route 1 10/29/24 .COMPLEX #90 tabs ibuprofen 800 mg tablet See Rx Instructions .Route 1 10/31/24 .COMPLEX #90 tabs famotidine 20 mg tablet See Rx Instructions .Route 1 11/06/24 .COMPLEX #90 tabs amoxicillin 875 mg-potassium 1 tab PO BID 7 days #14 t abs 09/27/25 clavulanate 125 mg tablet benzonatate 100 mg capsule 100 mg PO TID PRN cough #30 caps 09/27/25 guaifenesin 1,200 mg tablet, 1,200 mg PO BID PRN conge stion #20 09/27/25 extended release 12 hr (Mucinex) tabs azithromycin 500 mg tablet See Rx Instructions PO .COM PLEX #6 09/30/25 tabs prednisone 20 mg tablet 40 mg (2 x 20 mg) PO DAILY 5 days 09/30/25 #10 tabs dextroamphetamine-amphetamine 10 10 mg PO BID ADHD #60 tabs 10/03/25 mg tablet (Adderall) tizanidine 4 mg tablet See Rx Instructions .Route 1 12/04/24 .COMPLEX #90 tabs Allergies Allergy/AdvReac Type Severity Reaction Status Date / Time No Known Allergies Allergy Verified 09/28/25 17:31 [facility] Disclaimer: The information contained in this section may have been updated after the patient was seen, as this information can be updated by other users. Medical History Sinusitis C. difficile colitis Breast cancer screening Endometriosis Inguinal hernia Depression Hypertension Hypothyroid Surgical History H/O laparoscopy H/O inguinal hernia repair History of section Family History Other Colon cancer Family history of cancer Family history of myocardial infarction Social History Smoking Status: Current every day smoker tobacco type: cigarettes smoking status start date: 1/2 pack day years smoked: 30 quit status: considering quitting alcohol intake: never substance use type: denies use current occupational status: other Travel in the last 8 weeks?: None household members: family housing: house marital status: single education level: college Have you lived/traveled outside [place] in past 30 days?: No Contact w/someone who lives/traveled outside [place] past 30 days?: No Exposure to someone with infectious disease in past 14 days?: No Do you have a fever (greater than 100.4 F or 38 C)?: No Have you tested positive for COVID-19?: No Exposed to someone with COVID-19 in past 14 days?: No Do you have a sore throat?: No Do you have a cough?: No Do you have any weakness?: Yes Do you have any diarrhea?: No Are you experiencing any unusual bleeding?: No Do you have any muscle aches/pain?: No Do you have any abdominal pain?: No Are you experiencing loss of taste or smell?: No Other Medical History Have you received the Flu Vaccine for this season: Yes Have you received the Pneumonia Vaccine: No ROS Obtained: Yes Systems reviewed as appropriate & no additional complaints except as documented Physical Exam General General appearance: alert and in no apparent distress Head Head exam: atraumatic Eye Eye exam: Present normal appearance ENT ENT exam: Present mucous membranes moist, TM's normal bilaterally and normal external ear exam Neck Neck exam: Present full ROM and tenderness (Bilateral maxillary sinuses) Chest Chest inspection: Present symmetric chest wall rise Respiratory Respiratory exam: Present normal lung sounds bilaterally; Absent respiratory distress, wheezes or stridor Cardiovascular Cardiovascular exam: Present regular rate and normal rhythm Abdominal Exam Abdominal exam: Present soft; Absent distention, tenderness, guarding or rigidity Extremities Exam Extremities exam: Present normal inspection Back Exam Back exam: Present normal inspection Neurological Exam Neurological exam: Present alert and oriented X3 Psychiatric Psychiatric exam: Present normal affect Skin Skin exam: Present warm and dry Medical Decision Making Medical Records Screening: Per USPSTF and CDC recommendations, given the prevalence of disease in our region, it is our hospital?s policy to screen for HIV and viral Hepatitis for all patients aged 18 and over and those with ongoing risk factors. Mauro Inquiry Pt receiving controlled substance: No Vital Signs: 10/23/25 16:57 Temperature 98.3 F Temperature Source Oral Pulse Rate [Radial] 89 Respiratory Rate 18 Blood Pressure [Right Arm] 135/99 H Blood Pressure Mean [Right Arm] 111 Blood Pressure Source [Right Arm] Automatic Cuff Blood Pressure Position [Right Arm] Sitting 02 Sat by Pulse Oximetry 99 Oxygen Delivery Method Room Air Lab Data Lab Results 10/23/25 17:24: SARS-CoV-2 (PCR) Detected A, Influenza A Untype (PCR) Not detected, Influenza Type B (PCR) Not detected 10/23/25 17:27: Urine Color Yellow, Urine Appearance Clear, Urine pH 6.5, Ur Specific Walling 1.020, Urine Protein Negative, Urine Glucose (UA) Negative, Urine Ketones Negative, Urine Blood Negative, Urine Nitrate Negative, Urine Bilirubin Negative, Urine Urobilinogen 0.2, Ur Leukocyte Esterase Negative, Urine RBC 5-10, Urine WBC 3-5, Ur Squamous Epith Cells 3-5, Urine Bacteria 2+, U rine Mucus 4+ Orders (Tests/Meds): ED MEDICATIONS Discontinued Medications Generic Name Dose Route Start Last Admin Trade Name Freq PRN Reason Stop Dose Admin Ceftriaxone Sodium 1 gm 10/23/25 17:16 Ceftriaxone 1gm Vial IM 10/23/25 17:17 ONCE ONE Dexamethasone 10 mg 10/23/25 17:16 Dexamethasone 4mg Tablet PO 10/23/25 17:17 ONCE ONE Lidocaine HCl 0 ml 10/23/25 17:16 Lidocaine 1% 5ml Pf Vial IM 10/23/25 17:17 ONCE ONE ORDERS Category Date Time Status Rapid PCR Covid and Flu A/B Stat Lab 10/23/25 17:24 Completed UA [Urinalysis and Microscopic] Stat Lab 10/23/25 17:27 Completed Urine Culture Stat Micro 10/23/25 17:27 Received Medical Decision Narrative: Jenna Lemon is a 60-year-old female with a history of hypertension, frequent sinusitis who presents the emergency department for complaints of a sinus infection. Patient states that she was diagnosed with rhinovirus and a sinus infection approximately 1 month ago. She states that she was treated with a ntibiotics, steroids at that time. She states that it briefly improved but ever since the 10th of this month, she has had sinus congestion, pain to both ears and a headache. She states that she has not had a day off work for 2 weeks But notes that she has been treated for multiple sinus infections with a shot of Rocephin and steroids and that seems to help. She reports objective fevers. Patient reports that her headache is a pressure-like sensation. On arrival, patient is hemodynamically stable, afebrile, maintaining appropriate oxygen on room air. Physical exam, as stated above, reveals an overall well-appearing female in no distress. She has tenderness over the bilateral maxillary sinus area. Tympanic membrane's are clear bilaterally. She appears well-hydrated. She is no wheezing, rales or rhonchi on lung auscultation. No cardiac murmurs or rubs. Differential diagnosis includes, but is not limited to: Viral sinusitis, bacterial sinusitis, viral respiratory illness such as COVID or flu, urinary tract affection, low concern for otitis media or serous otitis media based on physical exam. Will obtain viral PCR COVID and flu testing, urinalysis. I do not feel that laboratory studies or CT imaging would be of benefit here and would not change ED management. Will administer 1 g of IM Rocephin as this has helped her sinus infections in the past as well as 10 mg of oral dexamethasone. Patient's urinalysis does not show any evidence of infection. She is positive for COVID-19 on her respiratory swab. I do feel that this likely explains her symptoms. I explained the patient that if there was a bacterial sinus infection, should improve after the antibiotics and steroids, however this could also be related to her COVID infection and may not improve after antibiotics and steroids. I encouraged her to follow-up with her primary care doctor. Return precautions were given. All questions were answered. She demonstrated understanding and was agreement this plan. She was then discharged from the emergency department in stable condition Critical Care Critical Care Time Critical Care Time: No
[2025-10-23 17:29] LABS: Microscopic, Urine URINE MICROSCOPIC (MICROSCOPIC)
[2025-10-23 17:29] LABS: Influenza A, PCR Not Detected (NotDetected); Influenza B, PCR Not Detected (NotDetected)
[2025-10-23 17:30] LABS: Bilirubin,Urine Negative (Negative); Color,Urine YELLOW (Yellow); Glucose,Urine (UA) Negative (Negative); Ketones,Urine Negative (Negative); Leukocyte Esterase,Urine Negative (Negative); PH,Urine 6.5 (5.0-8.5); Protein,Urine Negative (Negative); Specific Gravity, Urine 1.020 (1.005-1.030); Urobilinogen,Urine 0.2 EU/dl (0.2)
[2025-10-23 17:47] LABS: Bacteria,Urine 2+ /lpf; Mucus,Urine 4+ /lpf
[2025-10-23 17:52] LABS: Coronavirus 19, PCR Detected (NotDetected)
[2025-10-23] MEDS: DEXAMETHASONE 4MG TABLET 10 MG PO (18:20)
[2025-10-23] MEDS: cefTRIAXone 1GM VIAL 1 GM IM (18:21)
[2025-10-23] MEDS: LIDOCAINE 1% 5ML PF VIAL IM (18:21)
[2025-10-23 18:36] VITALS: BP 140/62; PULSE 88; RESP 18; TEMP 36.8; O2SAT 96
== END 2025-10-23 18:37 | disposition home or self-care (01) ==
PROVIDERS: Emergency Provider Student in an Organized Health Care Education/Training Program; PCP Nurse Practitioner Family
DX: U07.1 COVID-19 (principal); I10 Essential (primary) hypertension; Z79.899 Other long term (current) drug therapy; F32.A Depression, unspecified; F17.210 Nicotine dependence, cigarettes, uncomplicated
CPT/HCPCS: 81001; 87086; 87636; 96372; 99284; J0696; J2003; J8540